=== PATIENT | female | born 1965 | race Hispanic/Latino ===

== ENCOUNTER → 2024-05-30 09:55 | Outpatient (REF) | payer OTHER, SELFPAY | LOC: WDC 09:55 | PROVIDERS: ATTENDING PHYSICIAN Family Medicine; FAMILY PHYSICIAN Internal Medicine | DX: N64.4 Mastodynia (principal) | CPT/HCPCS: 76642; 77062; 77066 ==

== ENCOUNTER 2025-07-20 12:32 | Inpatient (IN) | payer OTHER, SELFPAY ==
[2025-07-20] VITALS (8 sets, daily range): BP systolic 80–118; BP diastolic 53–79; BMI 31.5; BMI 31.4
--- NOTE | 2025-07-20 09:26 | ED.GENMED ---
History of Present Illness
General
Chief Complaint: Abdominal Pain
Time Seen by Provider: 07/20/25 09:17
History of Present Illness
History of Present Illness:
Patient presents to the emergency department with right upper quadrant abdominal pain. Symptoms started last night. Associated with dry heaving and vomiting. She did have some watery diarrhea without blood. Denies cough. Endorses mild nasal
congestion and runny nose
Past History
Past History
ED Past Medical History: GERD, HTN, NIDDM, Psychiatric (Anxiety, bipolar disorder, schizophrenia) and Other (MS, low back pain, chronic pain maintained on gabapentin)
ED Past Surgical History: Other (Gastric bypass)
Patient has exhibited threatening behavior?: No
PSI?: No
Social History
Tobacco: Non-smoker
Alcohol: None
Drug: None
Living: with family
Employment: Employed
Family History
Family History: Other (Noncontributory)
Phy Exam
Physical Exam
Physical Exam:
GENERAL APPEARANCE: NAD, well developed/ well nourished
EYES lids/conjunctiva normal
EARS/NOSE/THROAT Mucous membranes moist, uvula midline without oral pharyngeal erythema, exudate or swelling
HEAD/NECK normocephalic atraumatic, neck is supple.
RESPIRATORY respiratory effort normal, speaks in full sentences, no accessory muscle use. Lungs clear to auscultation without rhonchi, wheezes, rales
CARDIAC Regular rate and rhythm, no edema.
ABDOMINAL exquisitely tender in the right upper quadrant with guarding. The rest of the abdomen is soft, nontender
MUSCLES/EXTREMITIES No abnormal range of motion, no swelling.
SKIN Warm, pink and dry. No rashes
NEUROLOGICAL Speech is clear and appropriate. Normal level of consciousness. 5/5 strength in all extremities.
PSYCH Normal mood and affect. Judgement/competence is appropriate
Sepsis
Sepsis Screening
Sepsis Assessment: Sepsis
Sepsis Screen
Sepsis Screen: Sepsis
Date: 07/20/25
Time: 18:03
Course
Orders/Labs/Results
Orders:
Orders
07/20/25 Breakfast
NPO
Allow oral meds: Yes
Allow clear liquids: Sips of Clears
07/20/25 09:17
COVID-19 Antigen Urgent
Source: Nasal Swab
Influenza A+B Rapid Molecular Urgent
EMMANUEL Source: Nasal Swab
Specimen Description:
07/20/25 09:26
0.9% Sodium Chloride 1000 ml [Nss] 1,000 ml IV BOLUS
Morphine Sulfate 4 mg IV NOW STA
Ondansetron Injectable [Zofran] 4 mg IV NOW STA
07/20/25 09:27
US Abdomen Limited Urgent
Comment:
Reason For Exam: RUQ pain
07/20/25 09:39
Complete Blood Count/With Diff Urgent
Comprehensive Metabolic Panel Urgent
Lactic Acid Urgent
Lipase Urgent
Blood Culture Q30M
EMMANUEL Source: Blood/Venous
Specimen Description:
07/20/25 Lunch
NPO
Allow oral meds: Yes
Allow clear liquids: Sips of Clears
NPO with Ice Chips: Yes
07/20/25 10:44
Blood Culture Q30M
EMMANUEL Source: Blood/Venous
Specimen Description:
07/20/25 10:53
MetroNIDAZOLE 500 MG/100 ML [Flagyl 500 mg] 100 ml IV NOW
07/20/25 10:55
Acetaminophen 1000MG/100Ml [Ofirmev] 1,000 mg in 100 ml IV ONCE
Acetaminophen IV Indication:: No OK & No Enteral Access
07/20/25 11:20
CefTRIAXone [Rocephin] 1,000 mg IV NOW STA
07/20/25 11:21
Ciprofloxacin 400 mg/[id number] [Cipro 400 mg] 200 ml IV NOW
07/20/25 11:27
Sterile Water [Sterile Water For Injection] 10 ml IV NOW STA
07/20/25 12:19
Admit/Transfer Patient As Directed
Co-Sign Provider:
Level of Care: Inpatient admission
Assign to:: Telemetry
Physician / Group: utey
Diagnosis: sepsis, acute calculus cholecystitis
Reason for Telemetry: Other
Other Reason for Telemetry: sepsis
Date to Stop Telemetry: 07/22/25
Time to Stop Telemetry: 11:00
Reason for Hospitalization: sepsis, acute calculus cholecystitis
Expected length of stay greater than two midnights?: Yes
ELOS- Estimated Length of Stay in days: 3
I certify the patient meets the requirements for IP care: Yes
07/20/25 12:22
Code Status As Directed
Resuscitation Status: Full Code
07/20/25 12:42
HYDROmorphone [Dilaudid] 1 mg IV Q4HPRN PRN
07/20/25 12:43
0.9% Sodium Chloride 1000 ml [Nss] 1,000 ml IV 120 mls/hr
07/20/25 13:34
Ondansetron Injectable [Zofran] 4 mg IV Q6HPRN PRN
07/20/25 14:11
Bisacodyl [Dulcolax] 10 mg RECTAL [id number] PRN
Docusate W/Senna [Senokot-S] 1 tablet PO BIDPRN PRN
Polyethylene Glycol Powder [Miralax] 17 grams PO DAILYPRN PRN
07/20/25 14:11
Consult Surgery [SURGICAL CONSULT] Routine
Consulting Provider: Doug Mcgill
Was physician already notified: Yes
Reason for consult: acute cholecystits
Activity As Directed
Activity Level: With Assistance
Intake/ Output As Directed
Frequency: Per unit guidelines
Pneumatic Compression Sleeves As Directed
Type: Knee high
Vital Signs As Directed
Frequency: Per unit guidelines
Weight As Directed
Frequency: Daily
DX Deep Vein Thrombosis Video Routine
07/20/25 16:00
Acetaminophen [Tylenol] 650 mg PO Q4HPRN PRN
07/21/25 00:00
MetroNIDAZOLE 500 MG/100 ML [Flagyl 500 mg] 100 ml IV Q12H
07/21/25 06:00
Complete Blood Count/No Diff IN AM
Comprehensive Metabolic Panel IN AM
Prothrombin Time IN AM
07/21/25 08:00
LevoFLOXacin 750 MG/150 ML [Levaquin] 750 mg in 150 ml IV Q24H
07/22/25 11:00
DC Protocol for Telemetry ONCE
Abnormal Lab Results
07/20/25
09:39
WBC 14.1 H 10^3/uL
(4.8-10.8)
Abs Immat Gran (auto) 0.1 H 10^3/uL
(0-0.05)
Absolute Neuts (auto) 12.3 H 10^3/uL
(1.4-6.5)
Absolute Lymphs (auto) 0.8 L 10^3/uL
(1.2-3.4)
Absolute Monos (auto) 1.0 H 10^3/uL
(0.1-0.6)
Immature Gran % 0.6 H %
(0-0.5)
Neutrophils % 87.1 H %
(42.2-75.2)
Lymphocytes % 5.3 L %
(20.5-51.1)
Sodium 133 L mmol/L
(135-145)
Creatinine 0.5 L mg/dL
(0.6-1.0)
Glucose 145 H mg/dl
(70-99)
AST 38 H U/L
(14-36)
Total Protein 8.6 H g/dl
(6.3-8.2)
07/20/25 09:39
07/20/25 09:39
Vital Signs
Initial and Last Documented VS:
Initial Vital Signs
Temp Pulse Resp BP Pulse Ox
102.8 F H 124 16 118/79 97
07/20/25 09:08 07/20/25 09:08 07/20/25 09:08 07/20/25 09:08 07/20/25 09:08
Last Documented Vital Signs
Temp Pulse Resp BP Pulse Ox
98.3 F 93 18 94/65 94
07/20/25 14:24 07/20/25 17:53 07/20/25 14:24 07/20/25 17:53 07/20/25 15:36
*Pulse Oximetry
SaO2: 97
Oxygen Mode of Delivery: Room air
Patient hypoxic: no
*Critical Care Note
Total Time (30-74mins, 75-104mins- exclusive of procedures): Not Applicable
Update Note
Update Note:
Dr Mcgill recommending admission, antibiotics, possibly OR tomorrow
ED Attending Note
-
Portions of this chart may have been created with voice recognition software.� Occasional wrong word or��sound alike� substitutions may have occurred due to the inherent limitations of voice recognition software.
Discharge Plan
Departure
Patient Disposition: Admit
Date of Disposition: 07/20/25
Time of Disposition: 11:33
Presentation/result/management discussed w/ accepting MD/DO: Hospitalist
Discharge Problem:
Acute cholecystitis
Interventions
Interventions:
*Risk Screen - Suicide Last Done: 07/20/25 09:10
*General Assessment Last Done: 07/20/25 12:24
*Neglect/Abuse Screening Last Done: 07/20/25 09:10
*ED COVID-19 Vaccine History Last Done: 07/20/25 12:24
*ED Influenza Vaccine History Last Done: 07/20/25 12:24
[facility] Fall Risk Assessment Tool Last Done: 07/20/25 14:37
*Nursing Disposition Last Done: 07/20/25 14:23
YR-Bwsiyi-Shbugqvwpu Assessment Last Done: 07/20/25 09:19
Discharge Date and Time
Discharge Date/Time: 07/20/25 14:37
[2025-07-20] MEDS: ZOFRAN 4 MG IV ×2 (09:39→14:01)
[2025-07-20] MEDS: NSS 1000 IV ×4 (09:39→22:50)
[2025-07-20] MEDS: MORPHINE SULFATE 4 MG IV (09:40)
[2025-07-20 09:54] LABS: COVID-19 Antigen Negative (Negative)
[2025-07-20 10:01] LABS: Hematocrit 43.0 % (37.0-47.0); Hemoglobin 14.8 g/dL (12.0-16.0); Mean Corp Hgb Conc. 34.4 g/dL (33.0-37.0); Mean Corpuscular Volume 81.1 fL (81.0-99.0); Nucleated Red Blood Cells % 0 %; Platelet Count 286 10^3/uL (130-400); Red Cell Dist. Width 13.2 % (11.5-14.5)
[2025-07-20 10:19] LABS: ALT (SGPT) 25 U/L (0-35); AST (SGOT) 38 U/L (14-36); Albumin 4.5 g/dl (3.5-5.0); Alkaline Phosphatase 96 U/L (38-126); Blood Urea Nitrogen 9 mg/dl (7-17); Calcium 9.6 mg/dl (8.4-10.2); Carbon Dioxide 26 mmol/L (22-30); Chloride 99 mmol/L (98-107); Estimated Creatinine Clearance 96 ml/min; Glucose 145 mg/dl (70-99); Lipase 177 U/L (23-300); Potassium 4.0 mmol/L (3.5-5.1); Sodium 133 mmol/L (135-145); Total Protein 8.6 g/dl (6.3-8.2); eGFR > 60.00
[2025-07-20] MEDS: OFIRMEV 100 IV (11:21)
[2025-07-20] MEDS: FLAGYL 500 MG 100 IV ×2 (11:34→23:37)
[2025-07-20] MEDS: ROCEPHIN 1000 MG IV (11:34)
[2025-07-20] MEDS: CIPRO 400 MG 200 IV (11:34)
[2025-07-20] MEDS: STERILE WATER FOR INJECTION 10 ML IV (11:56)
--- NOTE | 2025-07-20 11:56 | HPS.HSE ---
Family Physician
-
Family Physician: NOT KNOW UNKNOWN - PT DOES
Chief Complaint
-
RUQ pain since last night
History of Present Illness
59F pw acute right sided abd pain for the past 8 hours, states she has a hernia and a cyst and unsure of which is causing her symptoms.
Pt is febrile in triage T 102
Medical History
Past Medical History
Past Medical History: Reports Asthma, HTN, NIDDM, Psychiatric (Anxiety, bipolar disorder, schizophrenia) and Other (MS, low back pain, chronic pain maintained on gabapentin))
Past Surgical History: Reports Other (Gastric bypass))
Social History
Tobacco: Non-smoker
Alcohol: None
Drug: None
Living: With Family
Family History
Family History: Not pertinent
Allergies / Home Medications
Allergies reflects when Allergies were last updated in [employer].
Home Medications with original date entered in [employer]
Allergy/Medication List:
Allergies
Allergy/AdvReac Type Severity Reaction Status Date / Time
ibuprofen Allergy Unknown Verified 09/13/22 22:24
Penicillins Allergy Unknown Verified 09/13/22 22:24
Home Medications
omeprazole magnesium 20 mg tablet,delayed release (Prilosec OTC) 20 mg PO DAILY ##30 09/19/11
Vitamin B12 1 tab PO DAILY 12/29/11
multivitamin 1 ea PO DAILY 12/29/11
hydrocodone 5 mg-acetaminophen 300 mg tablet 1 tab PO Q8H PRN MODERATE PAIN #15 tabs 09/14/22
albuterol sulfate 90 mcg/actuation aerosol inhaler 2 puff inhalation Q6H PRN shortness of breath or wheezing #6.7 grams 12/05/22
azithromycin 250 mg tablet (Zithromax Z-Chuy) 250 mg PO DAILY 6 days #6 tabs 12/05/22
prednisone 20 mg tablet 40 mg (2 x 20 mg) PO DAILY 4 days #8 tabs 12/05/22
Review of Systems
-
Constitutional: Reports No Symptoms
EENT: Reports No Symptoms
Respiratory: Reports No Symptoms and See HPI
Cardiac: Reports No Symptoms
: Reports No Symptoms
Musculoskeletal: Reports No Symptoms
Skin: Reports No Symptoms
Neurological: Reports No Symptoms
Endocrine: Reports No Symptoms
Hematologic/Lymphatic: Reports No Symptoms
Psych: Reports No Symptoms
Physical Exam
Vital Signs
Vital Signs
Temp Pulse Resp BP Pulse Ox
102.8 F H 115 16 115/71 95
07/20/25 09:08 07/20/25 10:43 07/20/25 10:43 07/20/25 10:43 07/20/25 10:43
Physical Exam
General: Well Developed, Well Nourished, No Apparent Distress, Conversant and Other (Not toxic )
HEENT: NormoCephalic, Moist mucous membranes and Atraumatic
Respiratory: Clear
Cardiac: S1/S2 and Regular Rhythm; No Murmur or Rub
GI: Tender (exquisitely tender in the right upper quadrant with guarding. The rest of the abdomen is soft, nontender)
Rectal: Deferred by Provider
Musculoskeletal: No Clubbing, No Cyanosis and No Edema
Skin: No Rash
Neuro: Nonfocal/grossly intact
Laboratory Results
-
07/20/25 09:39
07/20/25 09:39
Laboratory Results
Lactic Acid 1.6 mmol/L (0.7-2.0) 07/20/25 09:39
Total Bilirubin 1.2 mg/dl (0.2-1.3) 07/20/25 09:39
AST 38 U/L (14-36) H 07/20/25 09:39
ALT 25 U/L (0-35) 07/20/25 09:39
Alkaline Phosphatase 96 U/L (38-126) 07/20/25 09:39
Lipase 177 U/L (23-300) 07/20/25 09:39
Impression/Plan
-
Vital Signs
Temp Pulse Resp BP Pulse Ox
102.8 F H 115 16 115/71 95
07/20/25 09:08 07/20/25 10:43 07/20/25 10:43 07/20/25 10:43 07/20/25 10:43
07/20/25
09:39
WBC 14.1 H
Hgb 14.8
Plt Count 286
Sodium 133 L
Creatinine 0.5 L
eGFR > 60.00
Lactic Acid 1.6
Total Bilirubin 1.2
AST 38 H
ALT 25
Alkaline Phosphatase 96
Total Protein 8.6 H
Lipase 177
US Abdomen Limited : CLINICAL INDICATION: Right upper quadrant pain.
IMPRESSION:
- Cholelithiasis/sludge, gallbladder wall thickening, trace pericholecystic fluid, and a reportedly positive sonographic Jimenez's sign.
Sonographic findings are considered suspicious for acute cholecystitis.
- Mild extrahepatic bile duct dilatation.
ASSESSMENT & PLAN
Sepsis due to acute cholecystitis
suspicious for acute calculous cholecystitis
Cholelithiasis/sludge, gallbladder
Fever , hi WCC + Sono POS for positive sonographic Jimenez's sign, RHQ tenderness, trace PCF, GBWT
Hemodynamically stable
HX PCN allergy
- normal lactic acid, normal Lipase and LFTs
- NPO and IV NS
- Empiric IV LVQ in place of Cipro + IV Flagyl initiated at ER - will cont
- GS/CRS Dr Mcgill saw, possibly OR tomorrow
Known HX
GERD
pHTN
NIDDM
Anxiety, bipolar disorder, schizophrenia
MS, low back pain, chronic pain maintained on gabapentin
DVT Px: SCD
Code:Full
IP TLM
--- NOTE | 2025-07-20 12:42 | CM ---
Chart reviewed and spoke with patient at ED bedside
Lives in a condo with ( they are going through separation now)
[address]
Independent
DME CPAP and cane
PCP Dr. Nikko Lyn
[facility]
no hx of VN nor SNF
DCP is to return home
Dtr Nohemi can pick her up at [place]
Cm will continue to follow up for any dcp needs
--- NOTE | 2025-07-20 13:37 | CON.GS ---
Consultation
-
Date/Time Consultation Performed: 07/20/25 1115
Medical History
-
Chief Complaint: ruq pain
History of Present Illness:
Ms Chaudhari is a 59 yo female with a h/o htn, niddm, bipolar, schizophrenia, MS and obesity s/p lap gastric bypass 2010 and more recent weight loss of 50lbs on Mounjaro (intentional) who presents with ruq pain that started last night with dry heaving
and nausea. She has had some diarrhea x1 episodes. On exam, she is tender to the RUQ. She does note she has been told she has gallstones by her GI doctor who she follows for esophageal dysfunction but denies prior episodes of pain like this in the
past. She had noted fever this morning.
Past Medical History
Past Medical History: GERD (esophageal dysfunction with prior EGD's, transfusions for prior GIB) and Psychiatric (bipolar, schizophrenia, MS, chronic back pain)
Past Surgical History: Bariatric (lap gastric bypass 2010) and Orthopedic (wrist surgery)
Social History
Tobacco: Non-Smoker
Alcohol: None
Family History
Family History: Reviewed & Not Pertinent
Allergies / Home Medications
Allergy/AdvReac Type Severity Reaction Status Date / Time
ibuprofen Allergy Unknown Verified 09/13/22 22:24
Penicillins Allergy Unknown Verified 09/13/22 22:24
�Medication �Instructions �Recorded �Confirmed �Type
cyanocobalamin (vitamin B-12) 1,000 mcg PO DAILY Supplement 07/20/25 07/20/25 History
1,000 mcg tablet
gabapentin 600 mg tablet 600 mg PO TID Neurological 07/20/25 07/20/25 History
Condition
hydroxyzine pamoate 50 mg capsule 50 mg PO TID Mental Health/Anxiety 07/20/25 07/20/25 History
melatonin 10 mg tablet 10 mg PO HSPRN PRN sleep 07/20/25 07/20/25 History
meloxicam 15 mg tablet 15 mg PO DAILYPRN PRN mild pain 07/20/25 07/20/25 History
prazosin 1 mg capsule 1 mg PO HS 07/20/25 07/20/25 History
rosuvastatin 5 mg tablet (Crestor) 5 mg PO QPM High Cholesterol 07/20/25 07/20/25 History
therapeutic multivitamin 1 tab PO DAILY Supplement 07/20/25 07/20/25 History
tirzepatide 7.5 mg/0.5 mL 7.5 mg SC SA Weight Gain 07/20/25 07/20/25 History
subcutaneous pen injector
(Mounjaro)
zolpidem 10 mg tablet (Ambien) 10 mg PO HS Sleep 07/20/25 07/20/25 History
Review of Systems
-
History Source: Patient and Family
All other systems: Negative unless noted
A 10 point review of systems was completed, and was negative except as per HPI.
Physical Exam
Vital Signs
Temp Pulse Resp BP Pulse Ox
100.1 F 109 16 91/61 93
07/20/25 12:21 07/20/25 12:21 07/20/25 10:43 07/20/25 12:21 07/20/25 12:21
07/19/25 07/20/25 07/21/25
06:59 06:59 06:59
Actual Weight 78 kg
Body Mass Index (BMI) 31.5
Lab Results
07/20/25 09:39
07/20/25 09:39
WBC 14.1 10^3/uL (4.8-10.8) H 07/20/25 09:39
Hgb 14.8 g/dL (12.0-16.0) 07/20/25 09:39
Hct 43.0 % (37.0-47.0) 07/20/25 09:39
Plt Count 286 10^3/uL (130-400) 07/20/25 09:39
Abs Immat Gran (auto) 0.1 10^3/uL (0-0.05) H 07/20/25 09:39
Neutrophils % 87.1 % (42.2-75.2) H 07/20/25 09:39
Physical Exam
General: Comfortable and Fever
HEENT: Normocephalic and Moist Mucous Membranes
GI: Soft, Non Distended and Tender (RUQ )
Skin: Warm and Dry
Neuro: Awake, Alert and AO x 3
Psych: Calm
Data Reviewed
-
Ultrasound: Image Personally Visualized and interpreted, Report Reviewed by me, Discussed with Physician, Discussed with Patient and Discussed with Family
Labs: Labs Reviewed by me, Discussed with Physician, Discussed with Patient and Discussed with Family
Old Records: Reviewed
Assessment / Plan
-
Ms Chaudhari is a 59 yo female with a h/o htn, niddm, bipolar, schizophrenia, MS and obesity s/p lap gastric bypass 2010 and more recent weight loss of 50lbs on Mounjaro (intentional) who presents with ruq pain that started last night with dry heaving
and nausea. She is febrile to 102.8 (responded to Ofirmev) with tachycardia and soft low bps. Tender to the RUQ with US imaging demonstrating acute calculous cholecystitis. Leukocytosis present. Bilirubin of 1.2 with mildly elevated AST. Normal
Lipase.
Plan:
Keep NPO
Start IV abx (ceftriaxone/flagyl)
Medical management as per primary team
Will plan laparoscopic cholecystectomy this admission, timing TBD
--- NOTE | 2025-07-20 16:03 | PTCARENOTE ---
This patient arrived to unit around 1430 this shift. She was able to walk from stretcher to bed with a x1 standby assist. Pt oriented to staff and room. BP noted to be low upon arrival at 84/53 automatic and 80/58 manual. MD notified at this time
and a 1 time 1000 cc bolus was ordered to be given. After the bolus pt came up to 100/66 manually. Plan of care ongoing.
[2025-07-20] MEDS: TORADOL 15 MG IV ×2 (16:33→22:35)
[2025-07-20] MEDS: TYLENOL 650 MG PO (20:17)
[2025-07-20] MEDS: MELATONIN 3 MG PO (22:35)
[2025-07-21] VITALS (8 sets, daily range): BP systolic 100–124; BP diastolic 60–76; BMI 32.4
[2025-07-21] MEDS: DILAUDID 0.5 MG IV ×4 (02:56→16:26)
--- NOTE | 2025-07-21 03:02 | PTCARENOTE ---
Patients BP soft 99/63 and 100/63. Pt. rang call brewer and informed RN that pain was a '07/24.' BP 108/68. DORIAN Lopez notified. PRN dilaudid order changed from 1 mg to 0.5 mg. See MAR for administration. Plan of care ongoing.
[2025-07-21 07:18] LABS: Hematocrit 36.6 % (37.0-47.0); Hemoglobin 12.4 g/dL (12.0-16.0); Mean Corp Hgb Conc. 33.9 g/dL (33.0-37.0); Mean Corpuscular Volume 82.8 fL (81.0-99.0); Platelet Count 246 10^3/uL (130-400); Red Cell Dist. Width 13.8 % (11.5-14.5)
[2025-07-21 07:34] LABS: INR 1.56; PT 18.8 Sec (11.4-14.6)
[2025-07-21 07:48] LABS: ALT (SGPT) 351 U/L (0-35); AST (SGOT) 434 U/L (14-36); Albumin 2.9 g/dl (3.5-5.0); Alkaline Phosphatase 186 U/L (38-126); Blood Urea Nitrogen 10 mg/dl (7-17); Calcium 8.7 mg/dl (8.4-10.2); Carbon Dioxide 25 mmol/L (22-30); Chloride 103 mmol/L (98-107); Estimated Creatinine Clearance 98 ml/min; Glucose 78 mg/dl (70-99); Potassium 3.7 mmol/L (3.5-5.1); Sodium 135 mmol/L (135-145); Total Protein 6.1 g/dl (6.3-8.2); eGFR > 60.00
[2025-07-21] MEDS: NSS 1000 IV ×3 (08:12→20:33)
[2025-07-21] MEDS: LEVAQUIN 150 IV (08:15)
[2025-07-21] MEDS: FLAGYL 500 MG 100 IV ×2 (11:38→23:42)
[2025-07-21] MEDS: TORADOL 15 MG IV (11:38)
--- NOTE | 2025-07-21 13:28 | W.PN.HOSP.TC ---
Today's Communication/Plan
-
Assessment / Plan
Assessment / Plan
NAD
Scleral Anicteric
MMM
No JVD
CTABL
RRR, S1/S2
Soft, NT, ND, BS+
Warm, Dry
AAOx3
Calm
[address]ylan
left hip pain secondary to gamma nail malplacement. Ortho following but not sure what they want to do interm of the plan.
317-2 chavez yamileth
Cholecystitis for MRCP likely will require a lap anitra per surgery in the next 1 or 2 days
Sepsis due to acute cholecystitis
Continue IV fluids
IV antibiotics
Blood cultures
Acute cholecystitis complicated by transaminitis
Transaminitis likely secondary to stone movement
MRCP
IV fluids
Plan for lap anitra in 1 to 2 days
GERD
Continue PPI
Hypertension
Continue antihypertensive
And IDDM
Accu-Chek sliding scale goal blood glucose 140-180
Anticipated Discharge: > 48 hours
Subjective/Interval History
-
Date of Service: July 21, 2025
Seen and examined. No new complaints. No acute overnight events.
Objective Data
-
Labs:
Laboratory Results
07/21/25
06:42
WBC 17.7 H
Hgb 12.4
Hct 36.6 L
Plt Count 246
PT 18.8 H
INR 1.56
Sodium 135
Potassium 3.7
Chloride 103
Carbon Dioxide 25
BUN 10
Creatinine 0.6
Glucose 78
Calcium 8.7
Total Bilirubin 3.8 H D
AST 434 H
ALT 351 H
Alkaline Phosphatase 186 H
Vital Signs:
Vital Signs
Temp Pulse Resp BP Pulse Ox
98.5 F 119 20 108/60 97
07/21/25 11:59 07/21/25 11:59 07/21/25 11:59 07/21/25 11:59 07/21/25 11:59
I&O
07/20/25 07/21/25 07/22/25
06:59 06:59 06:59
Intake Total 100 / 100
Balance 100 / 100
--- NOTE | 2025-07-21 15:26 | W.PN.GS2 ---
Today's Communication / Plan
-
pain control
OR tomorrow
Assessment / Plan
-
59 yo female with h/o lap gastric bypass, bipolar, schizophrenia, asthma and niddm presenting with acute calculous cholecystitis
Fever on arrival, none since. Tachycardia with soft low BP's
Leukocytosis present, trending up
LFT's rising today therefore obtained MRCP which demonstrates no choledocholithiasis, cholecystitis noted
Pt voicing concern that she is off her home mediations
Plan:
Will resume home psych meds, pt offered list off her [employer] patient portal for verification. Trend EKG's given potential for QTc prolongation with concurrent use of Levaquin with trazodone and hydroxyzine
Trend labs
Ok for clears tonight, NPO after MN for OR
C/W Levaquin/Flagyl
OR tomorrow for laparoscopic cholecystectomy
c/w IVF
analgesics with toradol and dilaudid (increased dosing frequency for better pain control)
SCDs for VTE ppx
Subjective Data
-
Date of Service: July 21, 2025
Pt seen and examined at bedside with Dr. Mcgill. Pain persists, describes as worse than childbirth. Concerned as she has been off her home medications. Denies n/v.
Objective Data
-
Intake and Output
07/20/25 07/21/25 07/22/25
06:59 06:59 06:59
Intake Total 100 / 100
Balance 100 / 100
Intake:
IV piggybacks 100 / 100
Other:
Number of approximated MODERATE 1
amounts of urine
Number of approximated LARGE 1
amounts of urine
Vital Signs
Temp Pulse Resp BP Pulse Ox
98.5 F 119 20 108/60 97
07/21/25 11:59 07/21/25 11:59 07/21/25 11:59 07/21/25 11:59 07/21/25 11:59
Lab Results
07/21/25 06:42
07/21/25 06:42
Calcium 8.7 mg/dl (8.4-10.2) 07/21/25 06:42
Total Bilirubin 3.8 mg/dl (0.2-1.3) H D 07/21/25 06:42
Direct Bilirubin 3.0 mg/dl (0.0-0.4) H 07/21/25 06:42
AST 434 U/L (14-36) H 07/21/25 06:42
ALT 351 U/L (0-35) H 07/21/25 06:42
Alkaline Phosphatase 186 U/L (38-126) H 07/21/25 06:42
Total Protein 6.1 g/dl (6.3-8.2) L D 07/21/25 06:42
Albumin 2.9 g/dl (3.5-5.0) L D 07/21/25 06:42
Physical Exam
-
NAD
ABD soft, tender to RUQ, nd
[2025-07-21] MEDS: PROZAC 40 MG PO (16:22)
[2025-07-21] MEDS: ATARAX 50 MG PO ×2 (16:23→22:07)
[2025-07-21] MEDS: LYRICA 150 MG PO (20:16)
[2025-07-21] MEDS: PEPCID 40 MG PO (20:32)
[2025-07-21] MEDS: ELAVIL 10 MG PO (22:06)
[2025-07-21] MEDS: DESYREL 100 MG PO (22:06)
[2025-07-21] MEDS: AMBIEN 10 MG PO (22:14)
[2025-07-22] VITALS (12 sets, daily range): BP systolic 10–127; BP diastolic 54–74; BMI 33.2
[2025-07-22] MEDS: DILAUDID 0.5 MG IV ×5 (02:30→21:33)
--- NOTE | 2025-07-22 02:40 | PTCARENOTE ---
Patient's roommates bed alarm sounded which woke patient up. This RN asked patient how her pain was. Pt. responded '03/24 in my stomach' while rubbing her abdomen. RN offered patient PRN pain medication. Patient agreed and then stated 'the pain has
been bothering me for awhile.' This RN asked patient why she did not ring call brewer. This nurse rounded several times throughout shift and patient was observed sleeping and snoring. Pt stated 'well didn't you hear me moaning out there?' Pt. again
educated that if she needs anything to ring the call brewer. Plan of care ongoing.
[2025-07-22] MEDS: TYLENOL 650 MG PO (03:10)
[2025-07-22] MEDS: NSS 1000 IV ×2 (05:56→13:12)
[2025-07-22] MEDS: PROZAC 40 MG PO (08:09)
[2025-07-22] MEDS: ATARAX 50 MG PO ×2 (08:10→21:32)
[2025-07-22] MEDS: LEVAQUIN 150 IV (08:10)
[2025-07-22] MEDS: LYRICA 150 MG PO ×2 (08:13→21:31)
[2025-07-22 08:56] LABS: Hematocrit 32.1 % (37.0-47.0); Hemoglobin 10.9 g/dL (12.0-16.0); Mean Corp Hgb Conc. 34.0 g/dL (33.0-37.0); Mean Corpuscular Volume 81.7 fL (81.0-99.0); Platelet Count 223 10^3/uL (130-400); Red Cell Dist. Width 14.2 % (11.5-14.5)
[2025-07-22 09:59] LABS: ALT (SGPT) 177 U/L (0-35); AST (SGOT) 108 U/L (14-36); Albumin 2.4 g/dl (3.5-5.0); Alkaline Phosphatase 148 U/L (38-126); Blood Urea Nitrogen 15 mg/dl (7-17); Calcium 8.6 mg/dl (8.4-10.2); Carbon Dioxide 22 mmol/L (22-30); Chloride 106 mmol/L (98-107); Estimated Creatinine Clearance 85 ml/min; Glucose 80 mg/dl (70-99); Potassium 3.7 mmol/L (3.5-5.1); Sodium 131 mmol/L (135-145); Total Protein 5.2 g/dl (6.3-8.2); eGFR > 60.00
--- NOTE | 2025-07-22 10:03 | W.PN.HOSP.TC ---
Addendum entered and electronically signed by Tiffany Venegas MD 07/22/25 12:53:
Addendum
Low BP prior to surgery, will give Bolus NS
End
Original Note:
Today's Communication/Plan
-
.
Assessment / Plan
Assessment / Plan
Physical Exam
General: Well Developed, Well Nourished, No Apparent Distress, Conversant and Other (Not toxic )
HEENT: Normocephalic, Moist mucous membranes and Atraumatic
Respiratory: Clear
Cardiac: S1/S2 and Regular Rhythm; No Murmur or Rub
GI: Tender (exquisitely tender in the right upper quadrant with guarding. The rest of the abdomen is soft, nontender)
Musculoskeletal: No Clubbing, No Cyanosis and No Edema
Skin: No Rash
Neuro: Nonfocal/grossly intact
Psych: calm
Sepsis / septic shock with leukocytosis, fever, hypotension, hyponatremia, elevated liver enzymes due to acute cholangitis/ cholecystitis
WBC is coming down
Fever is resolving
on IV ABx, IVF
BP is better now
Blood cultures are NGTD
MRCP: No MRCP evidence for choledocholithiasis.
d/w surgery, plan too OR today
Acute cholecystitis complicated by transaminitis
Transaminitis likely secondary to stone movement
MRCP
IV fluids
Plan for lap anitra today 07/22
# Sinus tachycardia
Could be reactive to infection or clonidine withdrawal
Will place her back on clonidine
GERD
Continue PPI
Hypertension
Hold antihypertensive due to low BP until after surgery and bP starting to go up
IDDM
Accu-Chek sliding scale goal blood glucose 140-180
# Per records
- bipolar, schizophrenia, MS, chronic back pain
Mildly restless.
Will place her back on psych meds to stabilize her mood.
Total time spent to see the patient, examined the patient, reviewed data and lab result, discuss treatment plan with patient, nursing staff around 55 minutes
Anticipated Discharge: > 48 hours
Subjective/Interval History
-
Date of Service: July 22, 2025
No chest pain
No sob
NPO for OR today
Objective Data
-
Labs:
Laboratory Results
07/22/25
08:34
WBC 15.5 H
Hgb 10.9 L
Hct 32.1 L
Plt Count 223
Sodium 131 L
Potassium 3.7
Chloride 106
Carbon Dioxide 22
BUN 15
Creatinine 0.7
Glucose 80
Calcium 8.6
Total Bilirubin 1.6 H D
AST 108 H
ALT 177 H
Alkaline Phosphatase 148 H
Vital Signs:
Vital Signs
Temp Pulse Resp BP Pulse Ox
97.9 F 99 18 101/61 92
07/22/25 07:58 07/22/25 07:58 07/22/25 07:58 07/22/25 07:58 07/22/25 07:58
I&O
07/21/25 07/22/25 07/23/25
06:59 06:59 06:59
Intake Total 100 / 100 240 / 240
Balance 100 / 100 240 / 240
[2025-07-22] MEDS: FLAGYL 500 MG 100 IV (11:57)
--- NOTE | 2025-07-22 13:13 | W.PN.GS2 ---
Today's Communication / Plan
-
OR today
Assessment / Plan
-
59 yo female with h/o lap gastric bypass, bipolar, schizophrenia, asthma and niddm presenting with acute calculous cholecystitis
Fever on arrival, none since. Tachycardia with soft low BP's
Leukocytosis present, trending down
LFT's trending down today. MRCP on 07/21 demonstrates no choledocholithiasis, cholecystitis noted
Plan:
NPO for OR today
Lap cholecystectomy with IOC today once OR available
Trend labs
C/W Levaquin/Flagyl
c/w IVF
analgesics with toradol and dilaudid
SCDs for VTE ppx
Subjective Data
-
Date of Service: July 22, 2025
Pt seen and examined at bedside with Dr. Espinosa. Denies n/v. Pain to epigastrium and RUQ still present. denies fever/chills.
Objective Data
-
Intake and Output
07/21/25 07/22/25 07/23/25
06:59 06:59 06:59
Intake Total 100 / 100 240 / 240
Balance 100 / 100 240 / 240
Intake:
Oral fluids 240 / 240
IV piggybacks 100 / 100
Other:
Number of approximated MODERATE 1 1
amounts of urine
Number of approximated LARGE 1 3
amounts of urine
Vital Signs
Temp Pulse Resp BP Pulse Ox
98.0 F 110 18 112/74 97
07/22/25 11:03 07/22/25 11:03 07/22/25 11:03 07/22/25 11:03 07/22/25 11:03
Lab Results
07/22/25 08:34
07/22/25 08:34
Calcium 8.6 mg/dl (8.4-10.2) 07/22/25 08:34
Total Bilirubin 1.6 mg/dl (0.2-1.3) H D 07/22/25 08:34
Direct Bilirubin 3.0 mg/dl (0.0-0.4) H 07/21/25 06:42
AST 108 U/L (14-36) H 07/22/25 08:34
ALT 177 U/L (0-35) H 07/22/25 08:34
Alkaline Phosphatase 148 U/L (38-126) H 07/22/25 08:34
Total Protein 5.2 g/dl (6.3-8.2) L 07/22/25 08:34
Albumin 2.4 g/dl (3.5-5.0) L 07/22/25 08:34
Physical Exam
-
NAD
ABD soft, tender to RUQ/Epigastrium, nd
--- NOTE | 2025-07-22 13:16 | W.SUR.PREOP ---
Pre-Operative Surgical Note
-
I have examined this patient prior to the performance of the scheduled procedure.
The patient's condition is unchanged from the time of the current History and
Physical and the patient is able to undergo the scheduled procedure.
--- NOTE | 2025-07-22 14:23 | CM ---
patient seen at bedside with daughter
per note Lap cholecystectomy with IOC today
PLAN: OR today, anticipate home, CM to follow for discharge planning/needs
[2025-07-22] MEDS: CATAPRES 0.1 MG PO (14:58)
[2025-07-22] MEDS: ATARAX PO (15:07)
[2025-07-22] MEDS: NSS IV (16:37)
--- NOTE | 2025-07-22 19:10 | W.IMMPOSTOP ---
Surgical Immed Post Op Note
-
Primary Surgeon: Aram Espinosa MD
Assisting Surgeon: None
Registered Public Health Nurse: ALEK Syed
Pre-op Diagnosis: Acute cholecystitis
Post-op Diagnosis: Gangrenous cholecystitis, intra-abdominal abscess
Procedure Performed:
1. Laparoscopic subtotal cholecystectomy with cholangiogram and suture ligation of the cystic duct +22 modifier
2. Drainage of an intra-abdominal abscess
Anesthesia Type: General
Specimen / Cultures:
1. Right upper quadrant pus for culture
2. Gallbladder and gallstones
Estimated Blood Loss: 67 cc
Complications: None
Operative Findings: Safe Veress needle entry required a single pass. Right upper quadrant Optiview trocar. Significant inflammation and purulent peritonitis noted particular in the right upper quadrant. Standard 4 port set up however an
additional 5 mm port was eventually placed in the left upper quadrant to assist with retraction given her very large liver. We were able to carefully peel off the rind of the surrounding fat off of the gallbladder wall which was notably gangrenous
in multiple points and perforated near the fundus with purulent bile extruding into a contained abscess in the right upper quadrant. This was sent for culture. Due to the size of the liver and inflammation at the hilum it was clear that we had to
do a top-down approach. The gallbladder fundus was elevated and the gallbladder was purposely entered just below it and taken down both the lateral and medial sides. Using a large suction device the gallstones were removed with minimal to no
spillage. The entire anterior plate of the gallbladder was taken off in the cystic duct orifice with bile emanating from it was visualized. There was a yellow cholesterol stone that was removed. The duct was then cannulated with cholangiocatheter
and a cholangiogram was performed. This showed appropriate filling of the duodenum, no distal filling defects and normal biliary anatomy. The catheter was removed and the duct was ligated using a 4-0 Maxon [id number] suture. 2 were used to
accomplish complete closure of the duct. The right upper quadrant was flooded and suctioned until clear. The back wall of the gallbladder was fulgurated. The right upper quadrant was carefully inspected for any other missing stones of which there
were none. All 4 x 4's along with the specimen were removed. Reinspection of the cystic duct stump confirmed hemostasis and there was no leaking bile. Floseal was then placed over the hilum and fossa. A 19 Uzbek round Leonel drain was then
introduced through the right lateralmost port passed across the field and secured to the skin with a 2-0 nylon suture. The 12 mm epigastric port was then closed with a 0 Maxon [id number] and the remainder of the ports were removed under direct
visualization.
POST OP PLAN:
Imaging: None
Labs: Routine AM
Diet: Clears tonight, will advance to regular diet as tolerated tomorrow.
Analgesia: Tylenol 650mg q6 Ankita, Dilaudid 0.5mg q2h PRN. No NSAIDs/Toradol
Neuro/vascular checks: Per unit protocol
AC/AP: Hold Therapeutic AC, Ok for DVT PPx
Activity: Ad Donna
Wound/Incisions/Drains: Routine
Abx: Will continue antibiotics x 7 days
Dispo: RNF, anticipate discharge home on 07/24 with a drain, at the earliest.
[2025-07-22] MEDS: ELAVIL 10 MG PO (21:32)
[2025-07-22] MEDS: DESYREL 100 MG PO (21:32)
[2025-07-23] MEDS: AMBIEN PO (00:26)
[2025-07-23] MEDS: FLAGYL 500 MG 100 IV ×2 (01:11→12:17)
[2025-07-23 03:00] VITALS: BP 97/63
[2025-07-23 05:13] VITALS: BMI 34.5
[2025-07-23 07:38] VITALS: BP 116/73
[2025-07-23] MEDS: PROZAC 40 MG PO (07:43)
[2025-07-23] MEDS: LYRICA 150 MG PO ×2 (07:43→21:20)
[2025-07-23] MEDS: ATARAX 50 MG PO ×3 (07:44→21:20)
[2025-07-23] MEDS: LEVAQUIN 150 IV (07:44)
[2025-07-23] MEDS: TORADOL 15 MG IV ×3 (07:56→21:20)
[2025-07-23 08:01] LABS: Hematocrit 34.5 % (37.0-47.0); Hemoglobin 11.0 g/dL (12.0-16.0); Mean Corp Hgb Conc. 31.9 g/dL (33.0-37.0); Mean Corpuscular Volume 86.3 fL (81.0-99.0); Platelet Count 250 10^3/uL (130-400); Red Cell Dist. Width 14.5 % (11.5-14.5)
[2025-07-23 08:21] LABS: ALT (SGPT) 141 U/L (0-35); AST (SGOT) 93 U/L (14-36); Albumin 2.6 g/dl (3.5-5.0); Alkaline Phosphatase 140 U/L (38-126); Blood Urea Nitrogen 14 mg/dl (7-17); Calcium 8.8 mg/dl (8.4-10.2); Carbon Dioxide 23 mmol/L (22-30); Chloride 106 mmol/L (98-107); Estimated Creatinine Clearance 101 ml/min; Glucose 112 mg/dl (70-99); Potassium 4.0 mmol/L (3.5-5.1); Sodium 135 mmol/L (135-145); Total Protein 5.6 g/dl (6.3-8.2); eGFR > 60.00
--- NOTE | 2025-07-23 09:40 | W.PN.HOSP.TC ---
Today's Communication/Plan
-
.
Assessment / Plan
Assessment / Plan
Physical Exam
General: Well Developed, Well Nourished, No Apparent Distress, Conversant and Other (Not toxic )
HEENT: Normocephalic, Moist mucous membranes and Atraumatic
Respiratory: Clear
Cardiac: S1/S2 and Regular Rhythm; No Murmur or Rub
GI: Tender (exquisitely tender in the right upper quadrant with guarding. The rest of the abdomen is soft, nontender)
Musculoskeletal: No Clubbing, No Cyanosis and No Edema
Skin: No Rash
Neuro: Nonfocal/grossly intact
Psych: calm
# S/P Laparoscopic subtotal cholecystectomy with cholangiogram & Drainage of an intra-abdominal abscess
Sepsis / septic shock with leukocytosis, fever, hypotension, hyponatremia, elevated liver enzymes due to acute Gangrenous cholecystitis, intra-abdominal abscess
WBC is coming down
Fever is resolving
on IV ABx,
Can stop IVF
OR culture is pending
Blood cultures are NGTD
MRCP: No MRCP evidence for choledocholithiasis.
Appreciate surgery help
# Sinus tachycardia
Could be reactive to infection or clonidine withdrawal
Back on clonidine
Insomnia on Ambien
GERD
Continue PPI
Hypertension
Hold antihypertensive due to low BP until after surgery and bP starting to go up
IDDM
Accu-Chek sliding scale goal blood glucose 140-180
# Per records
- bipolar, schizophrenia, MS, chronic back pain
Less restless.
Back on psych meds to stabilize her mood.
Total time spent to see the patient, examined the patient, reviewed data and lab result, discuss treatment plan with patient, nursing staff around 55 minutes
Anticipated Discharge: > 48 hours
Subjective/Interval History
-
Date of Service: July 23, 2025
Mild abdominal discomfort
No fevers
No sob
Objective Data
-
Labs:
Laboratory Results
07/23/25
07:26
WBC 13.4 H
Hgb 11.0 L
Hct 34.5 L
Plt Count 250
Sodium 135
Potassium 4.0
Chloride 106
Carbon Dioxide 23
BUN 14
Creatinine 0.5 L
Glucose 112 H
Calcium 8.8
Total Bilirubin 1.0
AST 93 H
ALT 141 H
Alkaline Phosphatase 140 H
Vital Signs:
Vital Signs
Temp Pulse Resp BP Pulse Ox
97.9 F 92 18 116/73 96
07/23/25 07:38 07/23/25 07:38 07/23/25 07:38 07/23/25 07:38 07/23/25 07:38
I&O
07/22/25 07/23/25 07/24/25
06:59 06:59 06:59
Intake Total 240 / 240 980 / 980
Output Total 70 / 70
Balance 240 / 240 910 / 910
[2025-07-23] MEDS: DILAUDID 0.5 MG IV (11:07)
[2025-07-23 11:24] VITALS: BP 119/76
[2025-07-23] MEDS: CATAPRES 0.1 MG PO (12:17)
[2025-07-23 15:10] VITALS: BP 98/59
[2025-07-23 19:37] VITALS: BP 90/53
[2025-07-23] MEDS: ATIVAN 0.5 MG PO (21:20)
[2025-07-23] MEDS: ELAVIL 10 MG PO (21:20)
[2025-07-23] MEDS: DESYREL 100 MG PO (21:20)
[2025-07-23] MEDS: AMBIEN 10 MG PO (21:20)
[2025-07-23 23:34] VITALS: BP 102/64
[2025-07-24] MEDS: FLAGYL 500 MG 100 IV ×2 (00:31→12:01)
[2025-07-24] MEDS: DILAUDID 0.5 MG IV ×2 (02:33→06:37)
[2025-07-24 03:40] VITALS: BP 103/67
[2025-07-24 06:00] VITALS: BMI 34.7
[2025-07-24 07:32] VITALS: BP 98/56
[2025-07-24] MEDS: LYRICA 150 MG PO (08:24)
[2025-07-24] MEDS: TYLENOL 1000 MG PO (08:24)
[2025-07-24] MEDS: ATARAX 50 MG PO (08:24)
[2025-07-24] MEDS: DETROL LA 4 MG PO (08:24)
[2025-07-24] MEDS: LEVAQUIN 150 IV (08:24)
[2025-07-24] MEDS: PROZAC 40 MG PO (08:24)
--- NOTE | 2025-07-24 08:38 | W.PN.GS2 ---
Today's Communication / Plan
-
Dispo planning with drain
Assessment / Plan
-
59 yo female with h/o lap gastric bypass, bipolar, schizophrenia, asthma and niddm presenting with acute calculous cholecystitis. Postoperative day 2 from a near total laparoscopic cholecystectomy with cholangiogram and situation of the cystic duct
with the drainage of an intra-abdominal abscess. Doing well, expected postoperative course.
Plan:
Cleared for discharge from a surgery perspective with a drain. She will need drain teaching and VNA set up prior to discharge.
Continue antibiotics d2/7
No NSAIDs
Discharge instructions updated. They were reviewed with the patient. Patient agreeable to plan of care above.
Time Spent
Total Time Spent with Patient (in minutes): 20
Subjective Data
-
Date of Service: July 24, 2025
Interval Events:
No acute events overnight. Slept well. Pain Controlled. Denies Nausea/Vomiting, +bowel function. Tolerating diet.
Objective Data
-
Intake and Output
07/23/25 07/24/25 07/25/25
06:59 06:59 06:59
Intake Total 980 / 980 1260 / 1260
Output Total 70 / 70 20 / 20
Balance 910 / 910 1240 / 1240
Intake:
Oral fluids 480 / 480 1260 / 1260
IV fluids (Total) 500 / 500
normosol 500 / 500
Output:
Drain Output (Total) 70 / 70 20 / 20
Right Lower Abdomen Trisatn- 70 / 70 20 / 20
Fisher
Other:
Number of approximated MODERATE 1 2
amounts of urine
Number of approximated LARGE 2
amounts of urine
Vital Signs
Temp Pulse Resp BP Pulse Ox
97.8 F 85 17 98/56 97
07/24/25 07:32 07/24/25 07:32 07/24/25 07:32 12/10/25 07:32 07/24/25 07:32
Lab Results
07/23/25 07:26
07/23/25 07:26
Calcium 8.8 mg/dl (8.4-10.2) 07/23/25 07:26
Total Bilirubin 1.0 mg/dl (0.2-1.3) 07/23/25 07:26
Direct Bilirubin 3.0 mg/dl (0.0-0.4) H 07/21/25 06:42
AST 93 U/L (14-36) H 07/23/25 07:26
ALT 141 U/L (0-35) H 07/23/25 07:26
Alkaline Phosphatase 140 U/L (38-126) H 07/23/25 07:26
Total Protein 5.6 g/dl (6.3-8.2) L 07/23/25 07:26
Albumin 2.6 g/dl (3.5-5.0) L 07/23/25 07:26
Physical Exam
-
GENERAL/NEURO: Awake, Alert, no distress
CHEST: Unlabored breathing on RA
ABDOMEN: Soft, Non-Tender, Non-Distended, incisions clean dry and intact. NITZA serosanguineous
Patient has a hickman catheter: No
Patient has a central line: No
--- NOTE | 2025-07-24 09:01 | W.PN.HOSP.TC ---
Today's Communication/Plan
-
Discharge after EKG
Assessment / Plan
Assessment / Plan
Physical Exam
General: Well Developed, Well Nourished, No Apparent Distress, Conversant
HEENT: Normocephalic, Moist mucous membranes and Atraumatic
Respiratory: Clear
Cardiac: S1/S2 and Regular Rhythm; No Murmur or Rub
GI: Soft, not distended, RUQ drain. Clean surgical site.
Musculoskeletal: No Clubbing, No Cyanosis and No Edema
Skin: No Rash
Neuro: Nonfocal/grossly intact
Psych: calm
# S/P Laparoscopic subtotal cholecystectomy with cholangiogram & Drainage of an intra-abdominal abscess
Sepsis / septic shock with leukocytosis, fever, hypotension, hyponatremia, elevated liver enzymes due to acute Gangrenous cholecystitis, intra-abdominal abscess
WBC is coming down
Afebrile
on IV ABx, surgery recommended total 7 days of antibiotic. Repeat EKG for QT interval. She tolerated quinolones in the past. Counseled regarding potential side effects including tendinitis, verbalized understand
OR culture, no organisms detected
Blood cultures are NGTD liver enzymes are coming down
MRCP: No MRCP evidence for choledocholithiasis.
Appreciate surgery help, okay to discharge with drain and oral antibiotic
# Sinus tachycardia
Resolved
Insomnia on Ambien
GERD
Continue PPI
Hypertension
Resume medication
IDDM
Resumed medications
# Per records
- bipolar, schizophrenia, MS, chronic back pain
Less restless.
Back on psych meds to stabilize her mood.
Total discharge time spent to see the patient, examined the patient, reviewed data and lab result, discuss discharge plan with patient, daughter on the phone, nursing staff around 67 minutes
Anticipated Discharge: Today
Subjective/Interval History
-
Date of Service: July 24, 2025
Less abdominal pain
She is tolerating diet
She wants script for pain medicine
Objective Data
-
Labs:
Laboratory Results
07/24/25
08:59
WBC Pending
Hgb Pending
Hct Pending
Plt Count Pending
Sodium Pending
Potassium Pending
Chloride Pending
Carbon Dioxide Pending
BUN Pending
Creatinine Pending
Glucose Pending
Calcium Pending
Total Bilirubin Pending
AST Pending
ALT Pending
Alkaline Phosphatase Pending
Vital Signs:
Vital Signs
Temp Pulse Resp BP Pulse Ox
97.8 F 85 17 98/56 97
07/24/25 07:32 07/24/25 07:32 07/24/25 07:32 07/24/25 07:32 07/24/25 07:32
I&O
07/23/25 07/24/25 07/25/25
06:59 06:59 06:59
Intake Total 980 / 980 1260 / 1260
Output Total 70 / 70 20 / 20
Balance 910 / 910 1240 / 1240
[2025-07-24 09:37] LABS: Hematocrit 31.8 % (37.0-47.0); Hemoglobin 10.9 g/dL (12.0-16.0); Mean Corp Hgb Conc. 34.3 g/dL (33.0-37.0); Mean Corpuscular Volume 82.6 fL (81.0-99.0); Platelet Count 259 10^3/uL (130-400); Red Cell Dist. Width 14.5 % (11.5-14.5)
[2025-07-24 09:57] LABS: ALT (SGPT) 91 U/L (0-35); AST (SGOT) 40 U/L (14-36); Albumin 2.3 g/dl (3.5-5.0); Alkaline Phosphatase 107 U/L (38-126); Blood Urea Nitrogen 25 mg/dl (7-17); Calcium 8.6 mg/dl (8.4-10.2); Carbon Dioxide 25 mmol/L (22-30); Chloride 104 mmol/L (98-107); Estimated Creatinine Clearance 87 ml/min; Glucose 104 mg/dl (70-99); Potassium 3.5 mmol/L (3.5-5.1); Sodium 133 mmol/L (135-145); Total Protein 5.1 g/dl (6.3-8.2); eGFR > 60.00
[2025-07-24 10:57] VITALS: BP 118/74
--- NOTE | 2025-07-24 11:38 | CM ---
MD entered order for discharge.
spoke with dgt Nohemi she said she will drive her home. IMM reviewed with dgt,
Pt has Reece drain.
Offered VN Requested [facility] PVCP DR Lyn .Yasmine Bonilla [facility] liaison notified of referral.
PLAN Home with [facility]
[2025-07-24] MEDS: PEPCID 20 MG PO (11:46)
--- NOTE | 2025-07-24 12:04 | VNURNOTE ---
Home Health Liaison met with patient and daughter at bedside to discuss [facility] nurse/therapy, visits, schedule and homebound status. Patient is agreeable and understands that visits at home will be 2-3 x per week to assess and teach medical and
drain management.
Patient is aware that [facility] will contact them for start of care within a few days after discharge from . Provided contact number for [facility].
PM [facility] referral completed in [facility].
[2025-07-24] MEDS: ATIVAN 0.5 MG PO (14:38)
--- NOTE | 2025-07-24 15:02 | W.DCSUMMARY ---
Discharge Summary
Discharge Data
Date of Admission: 07/20/25
Date of Discharge: 07/24/25
-
Pending Results: No
Hospital Course
59 years old female presented with abdominal pain, vomiting and diarrhea. She was found to have leukocytosis, fever, and mild tachycardia. LFTs showed elevated AST. US of abdomen revealed cholelithiasis/sludge with gallbladder wall thickening
pericholecystic fluid and a positive sonographic Jimenez sign. MRCP which demonstrates no choledocholithiasis, cholecystitis noted. Patient was evaluated by surgery. She started on intravenous fluid, intravenous antibiotic. Initial diagnosis was
acute cholecystitis with possible acute cholangitis. Patient was found to have gangrenous cholecystitis and intra-abdominal abscess upon laparoscopic examination. By Dr. Espinosa on patient underwent laparoscopic subtotal cholecystectomy with
cholangiogram, suture ligation of the cystic duct, drainage of intra-abdominal abscess 07/22/25. Patient remained on intravenous antibiotic. Diet was started slowly with good tolerance. Liver enzymes started to come down. WBC came down. Patient
was followed by surgery. She tolerated diet and advised to follow in the outpatient setting. Patient was given a course of antibiotic to finish 7 days total. Blood culture and OR culture did not show growth upon discharge. Patient was counseled
regarding potential side effects of Levaquin, she verbalized understanding. She was advised to hold her trazodone and hydroxyzine to avoid interaction with Levaquin. Patient remained hemodynamically stable. She requested prescription for pain
medicine other than Tylenol, she was given prescription for oxycodone. Patient was discharged home in a stable condition with home care services.
Discharge Plan
-
Patient Disposition: Home (Routine Discharge)
Discharge Diagnosis/Procedures: Gangrenous cholecystitis. Laparoscopic cholecystectomy
You received intravenous fluid, intravenous antibiotics. You are discharged on oral antibiotic to finish 7 days course.
- Flagyl, potential side effects include GI upset, nausea.
-Levofloxacin, potential side effects include tendinitis, prolonged QT. Hold trazodone and hydroxyzine while taking the medicine.
- You were given a prescription for pain medication called oxycodone. Avoid driving or operating machinery while taking it, potential side effect include constipation, drowsiness, sedation. Take oxycodone for severe pain only.
Condition: Good
Diet: No restrictions
Activity: No strenuous activity
Driving Restrictions: As prior to admission
Bathing Restrictions: OK to Shower
Activity Restrictions/Additional Instructions:
Instructions following Laparoscopic cholecystectomy
Please call [phone] if you have any questions or concerns after your surgery.
Wound Care:
Your incisions are covered with skin glue which will come off on it�s own in 5-10 days.
It is ok to shower the day after your surgery. Do not scrub the incisions, let soap and water wash over them and pat dry.
� Bruising around your incisions is normal.
� Using ice packs will help minimize this swelling.
� No swimming or soaking incisions for 1 week.
� Your stitches will dissolve and do not need to be removed.
Urinary retention:
If you are unable to urinate 6-8 hours after your surgery, please call [phone] to discuss further management.
Activity:
No heavy lifting more than 15 pounds for the next 3 weeks, then you may gradually lift heavier objects as tolerated by discomfort. Otherwise activity as tolerated by your comfort level.
Pain Management:
Use Tylenol, ibuprofen and ice packs to treat your pain.
� You may take 650 milligrams of Tylenol (Max 3 grams per day) every 6 hours, and 600 mg of ibuprofen also every 6 hours. (you can alternate them every 3 hours)
� You may use an ice pack to your incision as needed.
� If you still have pain not controlled by these measures, take your prescription pain medication as prescribed.
Medications:
You may resume your home medications.
Bowel Medications:
Prescription pain medication can make you constipated. If you take this medication, also take colace 100 mg twice daily (this is over the counter). If this is not sufficient, you may take Miralax (polyethylene glycol) to help move your bowels.
Diet:
After your procedure, there are no dietary restrictions. You may notice loose stools for up to 4 weeks after surgery with fatty meals, if this is the case you may have to adjust your diet as needed.
Driving restrictions:
No driving if you are taking prescription pain medication or if you think your normal reaction time and attentiveness has been slowed by your surgery.
Things to Look out for:
Worsening Abdominal pain, redness or drainage from incision
Call Doctor for:
Please call if you notice worsening redness or drainage from incision(s) lasting longer than 5 days after your surgery, any foul-smelling drainage from the incision, pain not controlled by pain medications, persistent nausea and vomiting, or for any
fevers greater than 101.3 F. The number for questions/concerns is [phone]
Follow-up:
Follow-up appointment will be scheduled with your surgeon in 3-4 weeks. Please call prior to your appointment if you have any questions or concerns. [phone]
NITZA DRAIN CARE INSTRUCTIONS
General Information:
Drains help to keep fluid from collecting by removing the extra blood and fluid from under the skin. A drain is temporary. It stays in place until the drainage has slowed down or stopped. Your doctor or nurse will decide when each drain should be
removed: This is usually after each drain has 30cc or less in 24 hours for 2 days in a row. When this happens, you should call the [facility] to schedule an appointment with the nurses to have it/them removed. This is usually not painful
and only takes a few seconds.
How do I care for the drains at home?
Pin your drains to your clothing by using a safety pin through the plastic loop on the top of the bulb. If the drain is not attached to your clothing, it may pull out from under your skin. Also, a drain usually feels more comfortable when it�s
attached. To care for the drain at home, you will have to empty the drain, ``strip�� the drain tubing, and change the dressing if applicable. See the following pages for instructions on how to do this.
What problems may I have with my drain?
� The bulb is not compressed- The bulb may not be squeezed tightly enough, the plug may not be closed securely, or the tube has slipped out a bit and is leaking. Follow the instructions on how to empty the drain.
If the bulb remains expanded, then notify your doctor or nurse during business hours.
� No drainage or sudden decrease in amount of drainage- This is usually due to clots in the drain. Follow the instructions on how to strip the drain tubing.
� The tube accidentally falls out- If this happens, place a dry gauze dressing over the drain site and notify your doctor or nurse during business hours.
� Increased redness, swelling, or heat around the tube insertion site- This may be a sign of infection. Take your temperature: if it is higher than 101F or 38.8C, call your doctor or nurse immediately. Otherwise, notify your doctor or nurse during
business hours and keep the dressing clean and dry.
Post-Surgical Drain Care:
After surgery, you will have one or two drains, called a Tristan-Fisher (NITZA) drain, placed near the incision. This device collects fluid, under suction, from your surgical area. The drain promotes healing and recovery, and reduces the chance of
infection. The drain will be in place until the drainage slows enough for your body to reabsorb fluid on its own. While you are hospitalized the nursing staff will care for the drain and teach you to continue to do so at home.
How to Empty Your NITZA Drain
Note: Wash your hands thoroughly before emptying your drain(s).
� Have the plastic measuring cup from the hospital ready to collect and measure the drainage. Please measure the output at the same two times every 24 hours and record the amount.
� Unpin the drain from your clothing.
Open the top of the drain. Turn the drain upside down and squeeze the contents of the bulb into the measuring cup. Be sure to empty the bulb as completely as possible. Flush the contents in the toilet.
� Use the drain output log chart to record the amount of drainage twice a day or any time the bulb is full. Record the total for 24 hours for each drain you have.
� If you have more than one drain, remember to record the drainage from each drain separately.
� To prevent infection, do not let the stopper or top of the bottle touch the measuring cup or any other surface.
� Use one hand to squeeze all of the air from the drain. With the drain still squeezed, use your other hand to replace the top. This creates the suction necessary to remove the fluids from your body.
� Pin the drain back on your clothing to avoid pulling it out accidently.
� Wash your hands again. Remember to wash your hands before and after the procedure to reduce the risk of infection.
Stripping the Tube
Often the tube may become blocked with products of healing or clot. If you do not have drainage, then:
� Hold the tube near where it is inserted in to the skin with your one hand.
� Use the other hand to hold a pencil and gently squeeze the tubing with the pencil while moving it down toward the drain away from your skin. This forces the more sold material into the bulb for better drainage.
� Repeat as necessary to start the draining again.
Removal of the Tube
� The tube may be removed once a single tube output is less than 30cc (1 oz.) for 24 hours. Please call the office to arrange a time to come in to have the drain removed.
� Please call the office [phone] if the output becomes thicker or has a bad odor or if you have any questions or concerns
Referrals:
Aram Espinosa MD [Active, Surgical] - in one to two weeks
Prescriptions:
New
levofloxacin 750 mg tablet
750 mg PO DAILY Qty: 3 0RF
metronidazole 500 mg tablet
500 mg PO BID Qty: 7 0RF
oxycodone 5 mg tablet
5 mg PO BID PRN (Reason: severe pain) Qty: 10 0RF
Continued
prazosin 1 mg Capsule
1 mg PO HS
meloxicam 15 mg Tablet
15 mg PO DAILYPRN PRN (Reason: mild pain)
cyanocobalamin (vitamin B-12) 1,000 mcg Tablet
1,000 mcg PO DAILY
therapeutic multivitamin Tablet
1 tab PO DAILY
zolpidem [Ambien] 10 mg Tablet
10 mg PO HS
rosuvastatin [Crestor] 5 mg Tablet
5 mg PO QPM
melatonin 10 mg Tablet
10 mg PO HSPRN PRN (Reason: sleep)
Mounjaro 7.5 mg/0.5 mL Pen Injector
7.5 mg SC SA
fluoxetine 40 mg Capsule
40 mg PO DAILY
clonidine HCl 0.1 mg Tablet
0.1 mg PO BID
lorazepam 0.5 mg Tablet
0.5 mg PO DAILY PRN (Reason: anxiety)
amitriptyline 10 mg Tablet
10 mg PO HS
etodolac 400 mg Tablet
400 mg PO BID
tizanidine 2 mg Capsule
2 mg PO Q8H PRN (Reason: muscle spasm)
vibegron 75 mg Tablet
75 mg PO DAILY
pregabalin 150 mg Capsule
150 mg PO BID
Held
hydroxyzine pamoate 50 mg Capsule
50 mg PO TID
Hold Instructions: Resume on 07/28/25.
trazodone 100 mg Tablet
100 mg PO HS
Hold Instructions: Resume on 07/28/25.
Discharge Orders:
Discharge Patient (As Directed); Ordered 07/24/25
Ordered By: Tiffany Venegas
Discharge Date and Time
Print Language: DANISH
[2025-07-24 15:08] VITALS: BP 105/74
--- NOTE | 2025-07-25 08:27 | OR.RPT ---
Operative Report
Operative Report
Patient Name: Aislinn Chaudhari
: 1965
Date of Operation: 07/22/2025
Preoperative Diagnosis: Acute cholecystitis
Postoperative Diagnosis: Gangrenous cholecystitis, intra-abdominal abscess
Procedure(s):
1. Laparoscopic subtotal cholecystectomy with Cholangiogram, + 22 modifier
2. Drainage of an intra-abdominal abscess
Surgeon(s):
Dr. Espinosa
Compliance Technician(s):
ALEK Syed
Anesthesia: General
Estimated Blood Loss: 67 cc
Urine Output: None
Drains/Lines/Implants: 19 [place] round Leonel drain
Specimens:
1. Gallbladder and contents
2. Right upper quadrant pus for culture
HPI/Surgical Indications:
This is a 59-year-old female, diabetic, morbidly obese status post laparoscopic Rachel-en-Y gastric bypass who presents to our hospital with postprandial right upper quadrant pain. Exam, labs and imaging are consistent with acute calculous
cholecystitis. Risks/Benefits/Alternatives were discussed at length, and the patient consented to proceed with surgery.
Operative Findings: Safe Veress needle entry required a single pass. Right upper quadrant Optiview trocar. Significant inflammation and purulent peritonitis noted particular in the right upper quadrant. Standard 4 port set up however an
additional 5 mm port was eventually placed in the left upper quadrant to assist with retraction given her very large liver. We were able to carefully peel off the rind of the surrounding fat off of the gallbladder wall which was notably gangrenous
in multiple points and perforated near the fundus with purulent bile extruding into a contained abscess in the right upper quadrant. This was sent for culture. Due to the size of the liver and inflammation at the hilum it was clear that we had to
do a top-down approach. The gallbladder fundus was elevated and the gallbladder was purposely entered just below it and taken down both the lateral and medial sides. Using a large suction device the gallstones were removed with minimal to no
spillage. The entire anterior plate of the gallbladder was taken off in the cystic duct orifice with bile emanating from it was visualized. There was a yellow cholesterol stone that was removed. The duct was then cannulated with cholangiocatheter
and a cholangiogram was performed. This showed appropriate filling of the duodenum, no distal filling defects and normal biliary anatomy. The catheter was removed and the duct was ligated using a 4-0 Maxon [id number] suture. 2 were used to
accomplish complete closure of the duct. The right upper quadrant was flooded and suctioned until clear. The back wall of the gallbladder was fulgurated. The right upper quadrant was carefully inspected for any other missing stones of which there
were none. All 4 x 4's along with the specimen were removed. Reinspection of the cystic duct stump confirmed hemostasis and there was no leaking bile. Floseal was then placed over the hilum and fossa. A 19 [place] round Leonel drain was then
introduced through the right lateralmost port passed across the field and secured to the skin with a 2-0 nylon suture. The 12 mm epigastric port was then closed with a 0 Maxon [id number] and the remainder of the ports were removed under direct
visualization.
Procedure Description:
The patient was brought to the Operating Room and placed in the supine position with one arm tucked. Following uneventful induction of general endotracheal anesthesia, an orogastric tube was placed. The abdomen was prepped and draped in the usual
sterile fashion. A timeout was performed confirming the procedure, consent, and that IV antibiotics were infused and sequential compression devices were confirmed to be on. The abdomen was entered using a left subcostal Veress technique which
required a single pass followed by a 5 mm right upper quadrant Optiview trocar. Pneumoperitoneum to 15 mmHg pressure was obtained without difficulty and we confirmed that no injury had occurred during our entry, despite several adhesions in the
left upper quadrant. The patient was positioned in reverse Trendelenberg and rotated with the right side up slightly. Two 5 mm trocars were then placed along the right subcostal margin, followed by a 12 mm port in the epigastrium. There was
purulent appearing bile in the right upper quadrant. The fundus of the gallbladder could barely be visible but was identified and the overlying fat was carefully dissected off. Due to the inflammation, most the tissue was quite oozy so 1 g of TXA
was administered by anesthesia at this point. A locking grasping forceps was placed on the fundus of the gallbladder where it was then retracted cephalad and to the right. Her liver was also quite large so an additional 5 mm left upper quadrant
port was placed to help provide exposure. The gallbladder wall was visibly necrotic with patchy areas of necrosis and a perforation on the lateral aspect from which infected bile was leaking. This pus was cultured. There is also notable
peritonitis noted in the right upper quadrant. It was clear the triangle of Calot was going to be very difficult to dissect due to the amount of inflammation and poor exposure from her enlarged liver. We elected to do a top-down cholecystectomy.
Two 4 x 4 Ray-Jannette's were placed in the abdomen 1 at the base of our dissection to help catch any stones. Using a laparoscopic bipolar energy device the gallbladder was purposely entered and at the fundus which was extended down both medially and
laterally. There were large gallstones that were suctioned up with large bore Najat suction device. There was no spillage of stones. I dissection continued inferiorly until we were able to identify the cystic duct orifice. The entire anterior
cap of the gallbladder was removed. There was an additional gallstone in the cystic duct that was removed and bile was noted to be emanating from the opening. A cholangiocatheter on an Chery clamp was inserted into the cystic duct and secured to
the surrounding tissue. A C-arm was draped and brought into the field. An intra-operative cholangiogram was performed and was noted to have:
No filling defects in the biliary tree
No significant biliary dilation
Brisk flow of contrast into the duodenum
Normal biliary anatomy
The catheter was then removed and the cystic duct was controlled with 2 [id number] 4-0 Maxon sutures. The gallbladder bed was inspected and excellent hemostasis was obtained, and the back wall of the gallbladder was fulgurated. The 4 x 4's
were removed. The gallbladder was extracted through the 12 mm trocar site using an endocatch bag without dilating the port site. The abdomen was again irrigated and excellent hemostasis was assured. Floseal was placed at the base to ensure
hemostasis. A 19 [place] round Leonel drain was introduced through the right lateralmost port and passed around the liver and across our field to assist with drainage of her intra-abdominal abscess. All remaining trocars were then removed and the
pneumoperitoneum was evacuated. The 12 mm trocar site was closed using 0 PDS suture. All trocar sites were closed at the skin level using 4-0 Monocryl followed by Dermabond. Overall, the patient tolerated the procedure well and was taken to the
Recovery Room postoperatively in stable condition.
I was the attending physician and performed the procedure with assistance of the BEAD FORMING MACHINE SET UP OPERATOR above. They were required due to the complexity of the procedure. During the procedure they assisted with port placement, gallbladder retraction, holding camera
and skin closure. I was present for all portions of the case.
A 22 modifier is being requested for this case as this required significantly more effort, time and instruments to safely accomplish this procedure laparoscopically then a typical gallbladder.
Aram Espinosa MD
== END 2025-07-24 15:19 | disposition home health service (06) | DRG 853 ==
LOC: 3 WEST ACU 12:32
PROVIDERS: Registered Nurse; Surgery; ADMITTING PHYSICIAN Internal Medicine; ATTENDING PHYSICIAN Internal Medicine; EMERGENCY PHYSICIAN Emergency Medicine; OTHER PHYSICIAN Surgery
PROC: 0FT44ZZ Resection of Gallbladder, Percutaneous Endoscopic Approach (ICD-10-PCS; 2025-07-22)
DX: A41.9 Sepsis, unspecified organism (principal); K65.1 Peritoneal abscess; R65.21 Severe sepsis with septic shock; K65.9 Peritonitis, unspecified; K80.00 Calculus of gallbladder with acute cholecystitis without obstruction; K82.A2 Perforation of gallbladder in cholecystitis; Z11.52 Encounter for screening for COVID-19; K82.A1 Gangrene of gallbladder in cholecystitis; K21.9 Gastro-esophageal reflux disease without esophagitis; I10 Essential (primary) hypertension; F31.9 Bipolar disorder, unspecified; F20.9 Schizophrenia, unspecified
CPT/HCPCS: 74181; 74300; 76000; 76705; 80053; 82248; 83605; 83690; 85025; 85027; 85610; 87040; 87070; 87075; 87205; 87502; 87811; 88304; 93005; 96361; 96374; 96375; 99284; A4300

== ENCOUNTER 2025-07-29 22:01 | Inpatient (IN) | payer OTHER, SELFPAY ==
[2025-07-29 10:47] VITALS: BP 99/59
--- NOTE | 2025-07-29 14:15 | CON.GS ---
Addendum entered and electronically signed by Aram Espinosa MD 07/30/25 08:15:
Delayed entry note for 07/29/2025
I saw and examined the patient independently.
The Dimpling Machine Operator's note was reviewed and I agree with the note, assessment and plan except where noted below.
Comment: 59-year-old female with a history of a laparoscopic gastric bypass in 2010 recently admitted with cholecystitis and underwent a successful laparoscopic subtotal cholecystectomy with cholangiogram that required suture ligation of the cystic
duct and drainage of an intra-abdominal abscess. A NITZA drain was left postoperatively and was clear until Tuesday when the color changed from serosanguineous to bilious concerning for a cystic duct stump leak along. CT scan confirms collection in
the gallbladder fossa, no other significant undrained collections. Exam, vitals, blood work all reassuring.
GI consult for ERCP, sphincterotomy and stenting. I did discuss this case with Dr. York.
Options reviewed with briefly with patient include laparoscopic/open exploration, laparoscopic transgastric assisted ERCP, double-balloon push enteroscopy and possible Edge procedure.
I have low suspicion for active infection, will cover with antibiotics.
Okay for regular diet until procedure time and can be determined.
Keep NITZA to bulb suction.
Out of bed and ambulate as able.
General Surgery will continue to follow, appreciate hospitalist managing her other chronic conditions.
Original Note:
Consultation
-
Date/Time Consultation Performed: 07/29/25 1400
Medical History
-
Chief Complaint: epigastric discomfort
History of Present Illness:
59 yo female with a h/o htn, niddm, bipolar, schizophrenia, MS and obesity s/p lap gastric bypass 2010 and more recent weight loss of 50lbs on Mounjaro (intentional) who was admitted from 07/20-07/24 with gangrenous cholecystitis with laparoscopic
subtotal cholecystectomy with cholangiogram and suture ligation of the cystic duct and drainage of intraabdominal abscess on 07/22/25 with NITZA drain left in place post operatively. She was discharged to complete a course of antibiotics at home with NITZA
in place for monitoring. Initially, her outputs from the NITZA drain were serosanguineous but then changed to bile yesterday and she presented to clinic for evaluation and was sent to the ED for admission and additional work up. She complains of
symptoms of heartburn and upper abdominal pain predominantly in the epigastrium and LUQ. She has had chills and sweats and is unsure if she has had fevers. She denies nausea or vomiting. She has been passing loose green stools. Her daughter is at
bedside to assist with history.
Past Medical History
Past Medical History: NIDDM, Psychiatric (bipolar, schizophrenia) and Other (obesity, MS, esophageal dysfunction with prior EGD's, transfusions for prior GIB)
Past Surgical History: Bariatric (lap gastric bypass 2010), Cholecystectomy (subtotal 07/22/25) and Orthopedic (wrist surgery)
Social History
Tobacco: Non-Smoker
Alcohol: None
Family History
Family History: Reviewed & Not Pertinent
Allergies / Home Medications
Allergy/AdvReac Type Severity Reaction Status Date / Time
ibuprofen Allergy Unknown Verified 07/29/25 10:52
Penicillins Allergy Unknown Verified 07/29/25 10:52
�Medication �Instructions �Recorded �Confirmed �Type
cyanocobalamin (vitamin B-12) 1,000 mcg PO DAILY Supplement 07/20/25 07/20/25 History
1,000 mcg tablet
hydroxyzine pamoate 50 mg capsule 50 mg PO TID Mental Health/Anxiety 07/20/25 07/20/25 History
Held on 07/24/25.
Instructions: Resume on
07/28/25.
melatonin 10 mg tablet 10 mg PO HSPRN PRN sleep 07/20/25 07/20/25 History
meloxicam 15 mg tablet 15 mg PO DAILYPRN PRN mild pain 07/20/25 07/20/25 History
prazosin 1 mg capsule 1 mg PO HS Blood Pressure 07/20/25 07/20/25 History
rosuvastatin 5 mg tablet (Crestor) 5 mg PO QPM High Cholesterol 07/20/25 07/20/25 History
therapeutic multivitamin 1 tab PO DAILY Supplement 07/20/25 07/20/25 History
tirzepatide 7.5 mg/0.5 mL 7.5 mg SC SA weight management 07/20/25 07/20/25 History
subcutaneous pen injector
(Ervin)
zolpidem 10 mg tablet (Ambien) 10 mg PO HS Sleep 07/20/25 07/20/25 History
amitriptyline 10 mg tablet 10 mg PO HS depression/sleep 07/21/25 07/21/25 History
clonidine HCl 0.1 mg tablet 0.1 mg PO BID Heart 07/21/25 07/21/25 History
Disease/Condition
etodolac 400 mg tablet 400 mg PO BID Pain 07/21/25 07/21/25 History
fluoxetine 40 mg capsule 40 mg PO DAILY depression/anxiety 07/21/25 07/21/25 History
lorazepam 0.5 mg tablet 0.5 mg PO DAILY PRN anxiety 07/21/25 07/21/25 History
pregabalin 150 mg capsule 150 mg PO BID Pain 07/21/25 07/21/25 History
tizanidine 2 mg capsule 2 mg PO Q8H PRN muscle spasm 07/21/25 07/21/25 History
trazodone 100 mg tablet 100 mg PO HS depression/sleep 07/21/25 07/21/25 History
Held on 07/24/25.
Instructions: Resume on
07/28/25.
vibegron 75 mg tablet 75 mg PO DAILY Urinary Issue 07/21/25 07/21/25 History
levofloxacin 750 mg tablet 750 mg PO DAILY #3 tabs 07/24/25 Rx
metronidazole 500 mg tablet 500 mg PO BID #7 tabs 07/24/25 Rx
oxycodone 5 mg tablet 5 mg PO BID PRN severe pain #10 07/24/25 Rx
tabs
oxycodone 5 mg tablet 5 mg PO Q6HPRN PRN 07/27/25 Rx
breakthrough/severe pain #8 tabs
Review of Systems
-
History Source: Patient and Family
All other systems: Negative unless noted
A 10 point review of systems was completed, and was negative except as per HPI.
Physical Exam
Vital Signs
Temp Pulse Resp BP Pulse Ox
98.3 F 70 16 99/59 97
07/29/25 10:47 07/29/25 10:47 07/29/25 10:47 07/29/25 10:47 07/29/25 10:47
Physical Exam
General: Well Developed, Well Nourished and No Apparent Distress
HEENT: Normocephalic
Respiratory: Non Labored Respirations
GI: Soft, Non Distended and Tender (epigastrium)
Skin: Warm, Dry and Other (Lap sites well healed)
Neuro: Awake, Alert and AO x 3
Psych: Calm
Data Reviewed
-
CT Scan: Image Personally Visualized and interpreted, Report Reviewed by me, Discussed with Physician, Discussed with Patient and Discussed with Family
Labs: Labs Reviewed by me, Discussed with Physician, Discussed with Patient and Discussed with Family
Old Records: Reviewed
Assessment / Plan
-
59 yo with h/o htn, niddm, bipolar, schizophrenia, MS and obesity s/p lap gastric bypass 2010 and more recent weight loss of 50lbs on Mounjaro (intentional) who was admitted from 07/20-07/24 with gangrenous cholecystitis with laparoscopic subtotal
cholecystectomy with cholangiogram and suture ligation of the cystic duct and drainage of intraabdominal abscess on 07/22/25 with NITZA drain left in place post operatively for management who presented to clinic today with changes to color of her
drainage with bile/green drainage since 07/28 with symptoms of epigastric pain/luq pain and heartburn and was advised to present to the ED where she is seen currently with her daughter at bedside. AFVSS. Labs pending.
Plan:
Admit to hospitalist for medical management
Consult gastroenterology, case has been discussed with Dr. York
Keep NPO
Check CT of the abd/pelvis with IV contrast
LFT's, lipase and CBC pending
C/W NITZA drain
Low suspicion for infection, but would initiate IV zosyn q6h empirically
Case discussed with ED team
--- NOTE | 2025-07-29 14:23 | ED.GENMED ---
History of Present Illness
<April Ann NP - Last Filed: 07/29/25 22:45>
General
Chief Complaint: Post Operative Problem(s)
Source: patient
Exam Limitations: none
Time Seen by Provider: 07/29/25 14:01
Nursing documentation reviewed up to this point in time: agreed with
History of Present Illness
History of Present Illness:
Patient to the emergency department for complications s/p cholecystectomy. Patient was admitted here on 07/20 for acute cholecystitis. She had surgery by Dr. Espinosa. She was found to have gangrenous cholecystitis and an intra-abdominal abscess.
She had a subtotal cholecystectomy and drainage of the intra-abdominal abscess on 07/22. NITZA drain was placed. She was treated with Levaquin and Flagyl. She reports completing course of antibiotic. She was discharged home on 07/24. She reports
since Tuesday she has noticed green drainage in NITZA drain. She had a follow-up appointment with Dr. Espinosa in office today and was advised to come to the emergency department for admission, possible bile leak. On arrival to ED patient is awake and
alert. Vital signs are stable and she remains afebrile. She reports generalized abdominal pain. She denies any nausea or vomiting. She reports diarrhea. Brought to ED by daughter for evaluation.
Past History
<April Ann NP - Last Filed: 07/29/25 22:45>
Past History
ED Past Medical History: GERD, HTN, NIDDM, Psychiatric (Anxiety, bipolar disorder, schizophrenia) and Other (MS, low back pain, chronic pain maintained on gabapentin)
ED Past Surgical History: Other (Gastric bypass)
Patient has exhibited threatening behavior?: No
PSI?: No
Social History
Tobacco: Non-smoker
Alcohol: None
Drug: None
Living: with family
Employment: Employed
Family History
Family History: Other (Noncontributory)
Review of Systems
<April Ann NP - Last Filed: 07/29/25 22:45>
Review of Systems
Allergies reviewed?: Yes
All Other Systems: ROS reviewed and negative except as documented in HPI and ROS
Constitutional: Reports no symptoms
EENT: Reports no symptoms
Respiratory: Reports no symptoms
Cardiac: Reports no symptoms
ABD/GI: Reports abdominal pain and diarrhea
: Reports no symptoms
Musculoskeletal: Reports no symptoms
Skin: Reports no symptoms
Neurological: Reports weakness
Psychiatric: Reports no symptoms
Phy Exam
<April Ann NP - Last Filed: 07/29/25 22:45>
General Physical Exam
General Presentation: moderate distress
General age: appears stated age
General Skin: warm and dry
General Habitus: normal
General Mental: alert
Cardiovascular Exam
Cardiovascular Exam: regular rate/rhythm
Gastrointestinal Exam
Gastrointestinal Exam: normal bowel sounds, soft, no organomegaly, no pulsatile mass and non distended
Palpation: generalized: Moderate tenderness
Abdominal Scars: other (s/p cholecystectomy. Incisions with skin edges intact. Dermabond in place. No redness or swelling)
Musculoskeletal Exam
Musculoskeletal Exam: full ROM and neuro vasc intact
Skin Exam
Skin Exam: normal color, warm/dry and no rash
Psychiatric Exam
Psychiatric Exam: normal mood/affect
Course
<April Ann NP - Last Filed: 07/29/25 22:45>
Orders/Labs/Results
Orders:
Orders
07/29/25 14:02
Electrocardiogram (*1) Urgent
Reason for Study: Chest Pain
EKG- Treatment ONCE
07/29/25 14:09
CT Abd/pelvis W Iv Cont Urgent
Comment:
Reason For Exam: epigastric pain, s/p lap anitra
07/29/25 14:10
IV Insert/Care/Rem.- Treatment PRN
0.9% Sodium Chloride 1000 ml [Nss] 1,000 ml IV BOLUS
07/29/25 14:22
HYDROmorphone [Dilaudid] 0.5 mg IV NOW STA
Ondansetron Injectable [Zofran] 4 mg IV NOW STA
07/29/25 14:23
0.9% Sodium Chloride 1000 ml [Nss] 1,000 ml IV BOLUS
07/29/25 14:26
Complete Blood Count/With Diff Urgent
Comprehensive Metabolic Panel Urgent
Lipase Urgent
07/29/25 14:46
Consult Gastroenterology [GASTROINTESTINAL CONSULT] Routine
Consulting Provider: Javon York
Was physician already notified: Yes
Reason for consult: bile leak
Consult Surgery [SURGICAL CONSULT] Routine
Consulting Provider: Aram Espinosa
Was physician already notified: Yes
Reason for consult: post op
07/29/25 19:44
LevoFLOXacin 500 MG/100 ML [Levaquin] 500 mg in 100 ml IV NOW
MetroNIDAZOLE 500 MG/100 ML [Flagyl 500 mg] 100 ml IV NOW
07/29/25 20:01
HYDROmorphone [Dilaudid] 0.5 mg IV NOW STA
07/29/25 21:33
Admit/Transfer Patient As Directed
Co-Sign Provider:
Level of Care: Inpatient admission
Assign to:: Medical/Surgical
Physician / Group: fawn
Diagnosis: post surgical abscess vs biloma
Reason for Hospitalization: abscess vs biloma
Expected length of stay greater than two midnights?: Yes
ELOS- Estimated Length of Stay in days: 3
I certify the patient meets the requirements for IP care: Yes
PRN Pain Medication Management As Directed
May give lesser potent ordered pain med per pt: Yes
preference::
Protocol:: Medication orders for pain may be administered in a
manner that supports deferring to patient preference
when the pt is:
- Requesting an ordered lesser potent pain medication.
Least to most potent pain medications are defined
as: acetaminophen < NSAID < tramadol < opioids
(morphine, oxycodone, hydromorphone).
- Requesting a lesser dose of the same medication IF
ORDERED.
- Requesting a less intrusive route of administration
if both routes are prescribed by the provider (PO <
IV).
07/29/25 21:35
Code Status As Directed
Resuscitation Status: Full Code
07/29/25 21:38
EKG [Electrocardiogram (*1)] Stat
Reason for Study: QTc Monitoring
Abnormal Lab Results
07/29/25
14:26
WBC 10.9 H 10^3/uL
(4.8-10.8)
Hgb 11.9 L g/dL
(12.0-16.0)
Hct 36.5 L %
(37.0-47.0)
MCHC 32.6 L g/dL
(33.0-37.0)
RDW 14.6 H %
(11.5-14.5)
Plt Count 532 H D 10^3/uL
(130-400)
Abs Immat Gran (auto) 0.2 H 10^3/uL
(0-0.05)
Absolute Neuts (auto) 8.2 H 10^3/uL
(1.4-6.5)
Absolute Monos (auto) 0.7 H 10^3/uL
(0.1-0.6)
Immature Gran % 1.4 H %
(0-0.5)
Lymphocytes % 16.4 L %
(20.5-51.1)
Sodium 134 L mmol/L
(135-145)
Creatinine 0.5 L mg/dL
(0.6-1.0)
Glucose 100 H mg/dl
(70-99)
Albumin 3.2 L g/dl
(3.5-5.0)
07/29/25 14:26
07/29/25 14:26
Vital Signs
Initial and Last Documented VS:
Initial Vital Signs
Temp Pulse Resp BP Pulse Ox
98.3 F 70 16 99/59 97
07/29/25 10:47 07/29/25 10:47 07/29/25 10:47 07/29/25 10:47 07/29/25 10:47
Last Documented Vital Signs
Temp Pulse Resp BP Pulse Ox
98.3 F 73 19 123/63 95
07/29/25 10:47 07/29/25 22:00 07/29/25 22:00 07/29/25 18:00 07/29/25 22:00
<Camron Clifton, DO - Last Filed: 07/29/25 20:09>
Orders/Labs/Results
Orders:
Orders
07/29/25 14:02
Electrocardiogram (*1) Urgent
Reason for Study: Chest Pain
EKG- Treatment ONCE
07/29/25 14:09
CT Abd/pelvis W Iv Cont Urgent
Comment:
Reason For Exam: epigastric pain, s/p lap anitra
07/29/25 14:10
IV Insert/Care/Rem.- Treatment PRN
0.9% Sodium Chloride 1000 ml [Nss] 1,000 ml IV BOLUS
07/29/25 14:22
HYDROmorphone [Dilaudid] 0.5 mg IV NOW STA
Ondansetron Injectable [Zofran] 4 mg IV NOW STA
07/29/25 14:23
0.9% Sodium Chloride 1000 ml [Nss] 1,000 ml IV BOLUS
07/29/25 14:26
Complete Blood Count/With Diff Urgent
Comprehensive Metabolic Panel Urgent
Lipase Urgent
07/29/25 14:46
Consult Gastroenterology [GASTROINTESTINAL CONSULT] Routine
Consulting Provider: Javon York
Was physician already notified: Yes
Reason for consult: bile leak
Consult Surgery [SURGICAL CONSULT] Routine
Consulting Provider: Aram Espinosa
Was physician already notified: Yes
Reason for consult: post op
07/29/25 19:44
LevoFLOXacin 500 MG/100 ML [Levaquin] 500 mg in 100 ml IV NOW
MetroNIDAZOLE 500 MG/100 ML [Flagyl 500 mg] 100 ml IV NOW
07/29/25 20:01
HYDROmorphone [Dilaudid] 0.5 mg IV NOW STA
07/29/25 21:33
Admit/Transfer Patient As Directed
Co-Sign Provider:
Level of Care: Inpatient admission
Assign to:: Medical/Surgical
Physician / Group: fawn
Diagnosis: post surgical abscess vs biloma
Reason for Hospitalization: abscess vs biloma
Expected length of stay greater than two midnights?: Yes
ELOS- Estimated Length of Stay in days: 3
I certify the patient meets the requirements for IP care: Yes
PRN Pain Medication Management As Directed
May give lesser potent ordered pain med per pt: Yes
preference::
Protocol:: Medication orders for pain may be administered in a
manner that supports deferring to patient preference
when the pt is:
- Requesting an ordered lesser potent pain medication.
Least to most potent pain medications are defined
as: acetaminophen < NSAID < tramadol < opioids
(morphine, oxycodone, hydromorphone).
- Requesting a lesser dose of the same medication IF
ORDERED.
- Requesting a less intrusive route of administration
if both routes are prescribed by the provider (PO <
IV).
07/29/25 21:35
Code Status As Directed
Resuscitation Status: Full Code
07/29/25 21:38
EKG [Electrocardiogram (*1)] Stat
Reason for Study: QTc Monitoring
Abnormal Lab Results
07/29/25
14:26
WBC 10.9 H 10^3/uL
(4.8-10.8)
Hgb 11.9 L g/dL
(12.0-16.0)
Hct 36.5 L %
(37.0-47.0)
MCHC 32.6 L g/dL
(33.0-37.0)
RDW 14.6 H %
(11.5-14.5)
Plt Count 532 H D 10^3/uL
(130-400)
Abs Immat Gran (auto) 0.2 H 10^3/uL
(0-0.05)
Absolute Neuts (auto) 8.2 H 10^3/uL
(1.4-6.5)
Absolute Monos (auto) 0.7 H 10^3/uL
(0.1-0.6)
Immature Gran % 1.4 H %
(0-0.5)
Lymphocytes % 16.4 L %
(20.5-51.1)
Sodium 134 L mmol/L
(135-145)
Creatinine 0.5 L mg/dL
(0.6-1.0)
Glucose 100 H mg/dl
(70-99)
Albumin 3.2 L g/dl
(3.5-5.0)
07/29/25 14:26
07/29/25 14:26
Vital Signs
Initial and Last Documented VS:
Initial Vital Signs
Temp Pulse Resp BP Pulse Ox
98.3 F 70 16 99/59 97
07/29/25 10:47 07/29/25 10:47 07/29/25 10:47 07/29/25 10:47 07/29/25 10:47
Last Documented Vital Signs
Temp Pulse Resp BP Pulse Ox
98.3 F 73 19 123/63 95
07/29/25 10:47 07/29/25 22:00 07/29/25 22:00 07/29/25 18:00 07/29/25 22:00
<April Ann NP - Last Filed: 07/29/25 22:45>
*Radiology
Radiology exam reviewed: radiology read reviewed
*Pulse Oximetry
SaO2: 97
Oxygen Mode of Delivery: Room air
Patient hypoxic: no
*Critical Care Note
Total Time (30-74mins, 75-104mins- exclusive of procedures): Not Applicable
<April Ann NP - Last Filed: 07/29/25 22:45>
Update Note
Update Note:
Patient to the emergency department at the request of Dr. Espinosa for a change in her NITZA drain drainage. She had a cholecystectomy approximately 1 week ago. NITZA drainage changed from serosanguineous to green bile over the weekend. She denies any
fever or chills. Vital signs on arrival to ED are stable and she remains afebrile. Labs reviewed WBC 10.9 which is improved from her admission labs. LFTs are normal. CT of abdomen pelvis was completed as requested by Dr. Espinosa. CT findings of
continued fluid within the gallbladder fossa which may represent residual gallbladder or possible biloma. There is a small peripherally enhancing collection inferior to the fluid at the gallbladder fossa. This may represent a small abscess or
biloma. Patient to be admitted to the hospitalist as requested by surgery.. As requested by surgery patient will be placed back on antibiotics. She is penicillin allergic. Will place on Flagyl and Levaquin. Dr. Esposito notified of CT findings.
ED Attending Note
<April Ann NP - Last Filed: 07/29/25 22:45>
-
Portions of this chart may have been created with voice recognition software.� Occasional wrong word or��sound alike� substitutions may have occurred due to the inherent limitations of voice recognition software.
<Camron Clifton, DO - Last Filed: 07/29/25 20:09>
ED Attending Note
Patient seen and examined by attending physician: Yes
ED Attending Note:
I reviewed and agree with history treatment plan by April Ann NP. My exam revealed 59-year-old female no acute distress, biliary drainage from right Tristan-Fisher drain. Admit to hospitalist, treated with Zosyn.
Discharge Plan
Departure
Patient Disposition: Admit
Date of Disposition: 07/29/25
Time of Disposition: 19:45
Presentation/result/management discussed w/ accepting MD/DO: Hospitalist
Condition: Fair
Covid-19: Not Applicable
Discharge Problem:
Abdominal pain
Interventions
Interventions:
*General Assessment Last Done: 07/29/25 13:54
*Neglect/Abuse Screening Last Done: 07/29/25 13:53
[facility] Risk Assessment Tool Last Done: 07/29/25 15:18
*Risk Screen - Suicide (C-SSRS) Last Done: 07/29/25 13:53
ED-Skin Assessment Last Done: 07/29/25 20:35
[2025-07-29] MEDS: ZOFRAN 4 MG IV (14:35)
[2025-07-29] MEDS: NSS 1000 IV ×2 (14:35→23:50)
[2025-07-29] MEDS: DILAUDID 0.5 MG IV ×2 (14:36→20:08)
[2025-07-29 14:45] LABS: Hematocrit 36.5 % (37.0-47.0); Hemoglobin 11.9 g/dL (12.0-16.0); Mean Corp Hgb Conc. 32.6 g/dL (33.0-37.0); Mean Corpuscular Volume 84.1 fL (81.0-99.0); Nucleated Red Blood Cells % 0 %; Platelet Count 532 10^3/uL (130-400); Red Cell Dist. Width 14.6 % (11.5-14.5)
[2025-07-29 15:01] LABS: ALT (SGPT) 28 U/L (0-35); AST (SGOT) 24 U/L (14-36); Albumin 3.2 g/dl (3.5-5.0); Alkaline Phosphatase 97 U/L (38-126); Blood Urea Nitrogen 7 mg/dl (7-17); Calcium 8.7 mg/dl (8.4-10.2); Carbon Dioxide 24 mmol/L (22-30); Chloride 100 mmol/L (98-107); Glucose 100 mg/dl (70-99); Lipase 143 U/L (23-300); Potassium 3.7 mmol/L (3.5-5.1); Sodium 134 mmol/L (135-145); Total Protein 6.6 g/dl (6.3-8.2); eGFR > 60.00
[2025-07-29 16:00] VITALS: BP 103/62
[2025-07-29 17:00] VITALS: BP 112/62
[2025-07-29 18:00] VITALS: BP 123/63
[2025-07-29] MEDS: LEVAQUIN 100 IV (20:09)
--- NOTE | 2025-07-29 21:08 | HPS.HSE ---
Addendum entered and electronically signed by Palmer Monroe DO 07/29/25 23:23:
Patient seen and examined independently. Agree with findings and plan as set forth by DORIAN Hendrxi.
Patient is a 59y F with PMH significant for hypertension, DM-II and recent cholecystitis s/p subtotal cholecystectomy who presents to ED from Surgery office for admission / further evaluation. Patient reports increased abdominal discomfort over
the past few days with change in NITZA drainage from scant / bloody to increased volume of yellow / green liquid. No N/V. No fevers / chills.
Ass:
Post-Op Biloma v Seroma v Abscess
s/p Subtotal Cholecystectomy 07/22/25
GERD
Bipolar Depression / Schizophrenia
Multiple Sclerosis
? HTN
? DM
Plan:
Admit for further evaluation and treatment.
NPO, IV abx. Follow NITZA output.
Surgery and GI consulted for further evaluation.
Reported history of HTN and DM-II, but on meds for neither.
Follow BP.
Check A1C.
Original Note:
Family Physician
-
Family Physician: Nikko Lyn MD
Chief Complaint
-
abdominal pain
History of Present Illness
59 year old with PMH for GERD, HTN, NIDDM, anxiety, Bipolar, schizophrenia, MS Patient to the emergency department for complications s/p cholecystectomy. Patient was admitted here on 07/20 for acute cholecystitis. She had surgery by Dr. Espinosa.
She was found to have gangrenous cholecystitis and an intra-abdominal abscess. She had a subtotal cholecystectomy and drainage of the intra-abdominal abscess on 07/22. NITZA drain was placed. She was treated with Levaquin and Flagyl. She reports
completing course of antibiotic. She was discharged home on 07/24.
She reports since Tuesday she has noticed green drainage in NITZA drain. patient complained of right sided abdominal pain since then. today she had black diarrhea. she was nauseous. denied any vomit. she complained of chills, MUNROE and lightheaded today.
She had a follow-up appointment with Dr. Espinosa in office today and was advised to come to the emergency department for admission. denied dizzy or syncope. denied fever, chest pain, sob. denied dysuria or hematuria.
patient received iv Levaquin and Flagyl in ER. patient also received Dilaudid , NS and bolus in Er. admitting for further management.
Medical History
Past Medical History
Past Medical History: Reports Other
Additional Past Medical History:
- Oxygen failure, hemorrhoids, esophageal dysfunction, GI bleed
Past Surgical History: Reports Other
Additional Past Surgical History:
Lap gastric bypass, cholecystectomy, wrist surgery
Social History
Tobacco: Non-smoker
Alcohol: None
Drug: None
Family History
Family History: Not pertinent
Allergies / Home Medications
Allergies reflects when Allergies were last updated in [facility].
Home Medications with original date entered in [facility]
Allergy/Medication List:
Allergies
Allergy/AdvReac Type Severity Reaction Status Date / Time
ibuprofen Allergy Unknown Verified 07/29/25 10:52
Penicillins Allergy Unknown Verified 07/29/25 10:52
Home Medications
cyanocobalamin (vitamin B-12) 1,000 mcg tablet 1,000 mcg PO DAILY Supplement 07/20/25
hydroxyzine pamoate 50 mg capsule 50 mg PO TID Mental Health/Anxiety 07/20/25
Held on 07/24/25. Instructions: Resume on 07/28/25.
melatonin 10 mg tablet 10 mg PO HSPRN PRN sleep 07/20/25
therapeutic multivitamin 1 tab PO DAILY Supplement 07/20/25
tirzepatide 7.5 mg/0.5 mL subcutaneous pen injector (Mounjaro) 7.5 mg SC SA weight management 07/20/25
zolpidem 10 mg tablet (Ambien) 10 mg PO HSPRN PRN sleep 07/20/25
amitriptyline 10 mg tablet 10 mg PO HS depression/sleep 07/21/25
etodolac 400 mg tablet 400 mg PO BID Anti-Inflammatory 07/21/25
fluoxetine 40 mg capsule 40 mg PO DAILY depression/anxiety 07/21/25
lorazepam 0.5 mg tablet 0.5 mg PO DAILYPRN PRN anxiety 07/21/25
pregabalin 150 mg capsule 150 mg PO BID Pain 07/21/25
trazodone 100 mg tablet 100 mg PO HS depression/sleep 07/21/25
Held on 07/24/25. Instructions: Resume on 07/28/25.
omeprazole 40 mg capsule,delayed release 40 mg PO DAILY Gastrointestinal Issue 07/29/25
oxycodone 5 mg tablet 5 mg PO Q6HPRN PRN severe pain 07/29/25
Review of Systems
-
Constitutional: Reports Chills
EENT: Reports No Symptoms
Respiratory: Reports No Symptoms
Cardiac: Reports No Symptoms
Abdomen/GI: Reports Abdominal Pain, Nausea and Diarrhea
: Reports No Symptoms
Musculoskeletal: Reports No Symptoms
Skin: Reports No Symptoms
Neurological: Reports Dizzy and Headache
Endocrine: Reports No Symptoms
Hematologic/Lymphatic: Reports No Symptoms
Psych: Reports No Symptoms
Physical Exam
Vital Signs
Vital Signs
Temp Pulse Resp BP Pulse Ox
98.3 F 82 18 123/63 96
07/29/25 10:47 07/29/25 20:30 07/29/25 20:30 07/29/25 18:00 07/29/25 20:30
Physical Exam
General: Well Developed, Well Nourished and No Apparent Distress
HEENT: NormoCephalic, Moist mucous membranes and Atraumatic
Respiratory: Clear
Cardiac: S1/S2 and Regular Rhythm; No Murmur or Rub
GI: Soft, Non Tender, Non Distended and Normal Bowel Sounds; No Organomegaly
Rectal: Deferred by Provider
Musculoskeletal: No Clubbing, No Cyanosis and No Edema
Skin: No Rash
Neuro: AO x 3 and Nonfocal/grossly intact
Psych: Calm
Laboratory Results
-
07/29/25 14:
07/29/25 14:
Laboratory Results
Total Bilirubin 0.5 mg/dl (0.2-1.3) 07/29/25 14:
AST 24 U/L (14-36) 07/29/25 14:
ALT 28 U/L (0-35) 07/29/25 14:
Alkaline Phosphatase 97 U/L (38-126) 07/29/25 14:
Lipase 143 U/L (23-300) 07/29/25 14:
Data Reviewed
-
CT Scan: Report Reviewed by me
Lab Data: Labs Reviewed by me
Impression/Plan
-
#abdominal pain likely post surgical abscess vs biloma
#s/p Laparoscopic subtotal cholecystectomy with cholangiogram & Drainage of an intra-abdominal abscess (07/22)
-surgery consulted.
-wbc 10.9
-IV ceftriaxone and Flagyl
-GI consulted
-keep patient NPO
-dilaudid prn for pain
-CT abdomen pelvis with Changes of prior cholecystectomy. There is expected postoperative stranding within the gallbladder fossa, however there is continued fluid within the gallbladder fossa which may represent residual gallbladder or a possible
biloma. Extending inferiorly from the fluid in the gallbladder fossa is a small peripherally enhancing collection measuring 1.0 x 0.8 cm which may represent a small abscess or biloma. This extends just posterior to the hepatic flexure.Prior
Rachel-en-Y gastric bypass with a small hiatal hernia.Right greater than left bibasilar atelectasis.Large exophytic cyst along the lower pole the right kidney measuring up to 14.1 cm with associated mass effect.
#GERD
Continue PPI
#bipolar, schizophrenia, MS, chronic back pain
-amitriptyline,fluoxetine, hydroxyzine, lorazepam,melatonin continued
-ambien for sleep continued
#DVT prophylaxis
-scd
#CODE status
-full code
[2025-07-29] MEDS: FLAGYL 500 MG 100 IV (21:59)
[2025-07-29 23:00] VITALS: BP 129/72
[2025-07-29 23:20] VITALS: BMI 31.5
[2025-07-29] MEDS: ROCEPHIN 1000 MG IV (23:49)
[2025-07-29] MEDS: ATARAX 50 MG PO (23:49)
[2025-07-29] MEDS: STERILE WATER FOR INJECTION 10 ML IV (23:49)
[2025-07-29] MEDS: AMBIEN 10 MG PO (23:49)
[2025-07-29] MEDS: DESYREL 100 MG PO (23:49)
[2025-07-29] MEDS: ELAVIL 10 MG PO (23:49)
[2025-07-30] MEDS: DILAUDID 0.5 MG IV ×3 (04:39→16:55)
--- NOTE | 2025-07-30 06:55 | CON.GI ---
Addendum entered and electronically signed by Javon York MD 07/30/25 22:56:
I saw and examined the patient.
The PA's note was reviewed and I agree with the note.
Comment:
59 year old with h/o NIDDM, GERD, HTN, MS, prior RYGB in 2010, and recent subtotal cholecystectomy who p/w concern for bile leak. She was recently admitted from 07/20-07/24 with cholecystitis without choledocholithiasis and was taken to OR on 07/22
with concern for gangrenous cholecystitis; completed lap subtotal cholecystectomy with suture ligation of the cystic duct. She noticed bilious output from her NITZA drain starting from about 3 days ago and was advised to come to ER. CT on admission
showed continued small enhancing fluid collection suspicious for biloma vs small abscess. Given the bilious NITZA drain output and CT finding, I suspect likely bile leak from recent subtotal cholecystectomy. She has altered anatomy from her previous
RYGB. There are 3 endoscopic options for intervention - DBE assisted ERCP which has approximately 50-60% success rate and will need to be transferred to [facility] for this, laparoscopy-assisted ERCP which requires surgical port access to the excluded
portion of stomach, and EDGE procedure (EUS-directed transgastric ERCP). All 3 options were discussed with the patient. She was agreeable to EDGE. Plan for EUS / ERCP on 08/01.
Original Note:
Consultation
-
Date/Time Consultation Requested: 07/29/25 1545
Date/Time Consultation Performed: 07/30/25 0700
Requesting Provider: DORIAN Berry
Performing Provider: DORIAN Luo, Adams Song MD
Reason for Consultation: abnormal imaging
Medical History
Chief Complaint / HPI
History of Present Illness:
Pt is a 59yo with hx NIDDM, GERD, HTN, MS, chronic pain, anxiety, bipolar disorder, schizophrenia, prior gastric bypass 2010 with kody en Y, and recent subtotal anitra in setting of Mounjaro use with 50 lbs wt loss. In review of records pt with
recent admission 07/20-07/24 with abdominal pain, vomiting and diarrhea. She was noted with leukocytosis, fever and tachycardia. MRCP was completed with concern for cholecystitis without choledocholithiasis. She was taken to OP 07/22 with concern
for gangrenous cholecystitis and intra abdominal abscess with completed lap subtotal anitra with suture ligation of the cystic duct with cholangiogram and drainage of abscess with NITZA in place. She was discharged with course of antibiotics . She
now return with initial serous sanguinous drainage in NITZA then bile. CT on admission with prior anitra, stranding in GB fossa with continued fluid possible residual gallbladder vs biloma. There is extension of fluid in GB from GB fossa with
collection 1 x 0.8cm small abscess vs biloma. Also noted prior Kody en Y and small HH and large exophytic cyst lower pole of right kidney 14.1 cm with mass effect.
At this time she admits to hx dysphagia with recent worsening symptoms. She is followed by Dr. Sohan Hanna and due for what sound like esophageal dilation. She admits to food sticking on a regular basis. She also admits to GERD on
Omeprazole daily, nausea without vomiting, and abdominal pain 03/24. Since surgery she has had loose stools dark brown and dark urine 07/29 that has improved. She otherwise denies odynophagia, constipation, blood or black in stools. Last EGD
without last 3 months and colonoscopy within last year. Did not recall details. No NSAID or anticoagulation use.
Past Medical History
Past Medical History: GERD, HTN, NIDDM, Psychiatric (anxiety, bipolar disorder, schizophenia) and Other (MS, lower back pain, chronic pain )
Past Surgical History: Cholecystectomy and Other (gastric bypass )
Social History
Tobacco: Non-Smoker
Alcohol: None
Drug: None
Personal:
Living: With Family
Employment: Retired
Family History
Family History: Other (no family hx GI issues)
Allergies / Home Medications
Allergy/AdvReac Type Severity Reaction Status Date / Time
ibuprofen Allergy Unknown Verified 07/29/25 10:52
Penicillins Allergy Unknown Verified 07/29/25 10:52
�Medication �Instructions �Recorded
cyanocobalamin (vitamin B-12) 1,000 mcg PO DAILY Supplement 07/20/25
1,000 mcg tablet
hydroxyzine pamoate 50 mg capsule 50 mg PO TID Mental Health/Anxiety 07/20/25
Held on 07/24/25.
Instructions: Resume on
07/28/25.
melatonin 10 mg tablet 10 mg PO HSPRN PRN sleep 07/20/25
therapeutic multivitamin 1 tab PO DAILY Supplement 07/20/25
tirzepatide 7.5 mg/0.5 mL 7.5 mg SC SA weight management 07/20/25
subcutaneous pen injector
(Mounjaro)
zolpidem 10 mg tablet (Ambien) 10 mg PO HSPRN PRN sleep 07/20/25
amitriptyline 10 mg tablet 10 mg PO HS depression/sleep 07/21/25
etodolac 400 mg tablet 400 mg PO BID Anti-Inflammatory 07/21/25
fluoxetine 40 mg capsule 40 mg PO DAILY depression/anxiety 07/21/25
lorazepam 0.5 mg tablet 0.5 mg PO DAILYPRN PRN anxiety 07/21/25
pregabalin 150 mg capsule 150 mg PO BID Pain 07/21/25
trazodone 100 mg tablet 100 mg PO HS depression/sleep 07/21/25
Held on 07/24/25.
Instructions: Resume on
07/28/25.
omeprazole 40 mg capsule,delayed 40 mg PO DAILY Gastrointestinal 07/29/25
release Issue
oxycodone 5 mg tablet 5 mg PO Q6HPRN PRN severe pain 07/29/25
Review of Systems
-
History Source: Patient and Family
Constitutional: Reports Weight Loss (50 lb with mounjaro) and Fatigue
EENT: Reports No Symptoms
Respiratory: Reports No Symptoms
Cardiac: Reports No Symptoms
Abdomen/GI: Reports Abdominal Pain, Nausea and Diarrhea
: Reports Dark Urine
Musculoskeletal: Reports No Symptoms
Skin: Reports No Symptoms
Neurological: Reports Weakness
Endocrine: Reports No Symptoms
Hematologic/Lymphatic: Reports No Symptoms
Vital Signs
Temp Pulse Resp BP Pulse Ox
98.6 F 85 18 129/72 97
07/29/25 23:00 07/29/25 23:00 07/29/25 23:00 07/29/25 23:00 07/29/25 23:00
Physical Exam
Exam
General: Well Developed, Well Nourished and No Apparent Distress
HEENT: Normocephalic and Anicteric
Respiratory: Clear
Cardiac: Regular Rhythm
GI: Soft, Non Distended, Tender (epigastric ) and Other (anitra incisions intact )
Musculoskeletal: No Clubbing and No Cyanosis
Skin: Warm and Dry
Neuro: Awake, Alert and AO x 3
Psych: Calm
Results
WBC 10.9 10^3/uL (4.8-10.8) H 07/29/25 14:
Hgb 11.9 g/dL (12.0-16.0) L 07/29/25 14:26
Hct 36.5 % (37.0-47.0) L 07/29/25 14:
MCV 84.1 fL (81.0-99.0) 07/29/25 14:
Plt Count 532 10^3/uL (130-400) H D 07/29/25 14:26
Absolute Neuts (auto) 8.2 10^3/uL (1.4-6.5) H 07/29/25 14:
Sodium 134 mmol/L (135-145) L 07/29/25 14:26
Potassium 3.7 mmol/L (3.5-5.1) 07/29/25 14:
Chloride 100 mmol/L (98-107) 07/29/25 14:26
Carbon Dioxide 24 mmol/L (22-30) 07/29/25 14:26
BUN 7 mg/dl (7-17) 07/29/25 14:26
Creatinine 0.5 mg/dL (0.6-1.0) L 07/29/25 14:26
Calcium 8.7 mg/dl (8.4-10.2) 07/29/25 14:26
Total Bilirubin 0.5 mg/dl (0.2-1.3) 07/29/25 14:26
AST 24 U/L (14-36) 07/29/25 14:26
ALT 28 U/L (0-35) 07/29/25 14:26
Alkaline Phosphatase 97 U/L (38-126) 07/29/25 14:26
Lipase 143 U/L (23-300) 07/29/25 14:26
Diagnostic Image Results:
07/29/25 CT Abd/pelvis W Iv Cont
Changes of prior cholecystectomy. There is expected postoperative stranding within the gallbladder fossa, however there is continued fluid within the gallbladder fossa which may represent residual gallbladder or a possible biloma. Extending
inferiorly from the fluid in the gallbladder fossa is a small peripherally enhancing collection measuring 1.0 x 0.8 cm which may represent a small abscess or biloma. This extends just posterior to the hepatic flexure.
Prior Kody-en-Y gastric bypass with a small hiatal hernia.
Right greater than left bibasilar atelectasis.
Large exophytic cyst along the lower pole the right kidney measuring up to 14.1 cm with associated mass effect.
07/20/25 US abdomen
Cholelithiasis/sludge, gallbladder wall thickening, trace pericholecystic fluid, and a reportedly positive sonographic Jimenez's sign. Sonographic findings are considered suspicious for acute cholecystitis.
Mild extrahepatic bile duct dilatation.
07/21/25 MR Mrcp Without
No MRCP evidence for choledocholithiasis.
Acute cholecystitis.
Renal cysts including a very large right lower pole cyst.
Prior GI Procedures:
EGD recent with Dr. Sohan Hanna
Colonoscopy: 2009 [facility] - Non-thrombosed external hemorrhoids.
- Nodular ileal mucosa. This was biopsied.
- One 5 mm polyp in the transverse colon. Resected and
retrieved.
- Many 1 to 3 mm polyps in the rectum (benign
appearing). Resected and retrieved.
- Internal hemorrhoids.
Assessment / Plan
-
Pt is a 59yo with hx NIDDM, GERD, HTN, MS, chronic pain, anxiety, bipolar disorder, schizophrenia, prior gastric bypass 2010 with kody en Y, and recent subtotal anitra in setting of Mounjaro use with 50 lbs wt loss. In review of records pt with
recent admission 07/20-07/24 with abdominal pain, vomiting and diarrhea. She was noted with leukocytosis, fever and tachycardia. MRCP was completed with concern for cholecystitis without choledocholithiasis. She was taken to OP 07/22 with concern
for gangrenous cholecystitis and intra abdominal abscess with completed lap subtotal anitra with suture ligation of the cystic duct with cholangiogram and drainage of abscess with NITZA in place. She was discharged with course of antibiotics . She
now return with initial serous sanguinous drainage in NITZA then bile. CT on admission with prior anitra, stranding in GB fossa with continued fluid possible residual gallbladder vs biloma. There is extension of fluid in GB from GB fossa with
collection 1 x 0.8cm small abscess vs biloma. Also noted prior Kody en Y and small HH and large exophytic cyst lower pole of right kidney 14.1 cm with mass effect. At this time she admits to hx dysphagia followed by Dr. Sohan Hanna and
due for what sound like esophageal dilation with recent EGD completed. She also admits to GERD on Omeprazole daily, nausea without vomiting, and abdominal pain 03/24. Since surgery she has had loose stools dark brown and dark urine 07/29 that has
improved. Last EGD without last 3 months and colonoscopy within last year. Did not recall details. No NSAID or anticoagulation use.
-s/p subtotal anitra 07/22 for gangrenous gallbladder with drainage of intra abdominal abscess placement of NITZA with concern for bile leak
-hx Kody en y bypass 2010
-dysphagia with recent EGD and follow up with Dr. Sohan Hanna and due for what sound like esophageal dilation
-wt loss with recent Mounjaro use
-large renal cyst 14.1 cm
-hyponatremia
-coagulopathy
-mild anemia
-thrombocytosis
other med problems:
NIDDM, GERD, HTN, MS, chronic pain, anxiety, bipolar disorder, schizophrenia
PLAN:
Reviewed with patient, daughter and Dr. Jesús quintana with hx Kody en Y bypass and concern for bile leak
pt and daughter would like to review with Dr. York for input for stenting
pt remains with NITZA in place at this time with continued bilious drainage with 40ml overnight
Pt with recent bariatric surgical eval with dysphagia and due for ? dilation vs other -will obtain records from Dr. Sohan Hanna reviewed with nursing to call today
NPO til I review timing with Dr. York ok for diet from surgical standpoint if not proceeding today
no further loose stool recorded since admission without fever or WBC will hold on stool studies
LFT's and lipase remain normal
cont abx - Rocephin and Flagyl
Pt with mild INR elevation 1.56 on 07/21 will repeat this am
daughter updated all questions answered
-
-
Thank you for consultation and allowing me to participate in the patient's care. Please call the airborne electronics analyst GI physician during the after hours with any questions or concerns.
[2025-07-30 07:00] VITALS: BP 118/68
[2025-07-30 07:28] LABS: Hematocrit 31.4 % (37.0-47.0); Hemoglobin 10.6 g/dL (12.0-16.0); Mean Corp Hgb Conc. 33.8 g/dL (33.0-37.0); Mean Corpuscular Volume 82.6 fL (81.0-99.0); Platelet Count 450 10^3/uL (130-400); Red Cell Dist. Width 14.6 % (11.5-14.5)
[2025-07-30 07:51] LABS: Blood Urea Nitrogen 3 mg/dl (7-17); Calcium 8.2 mg/dl (8.4-10.2); Carbon Dioxide 24 mmol/L (22-30); Chloride 102 mmol/L (98-107); Estimated Creatinine Clearance 97 ml/min; Glucose 68 mg/dl (70-99); Potassium 3.5 mmol/L (3.5-5.1); Sodium 133 mmol/L (135-145); eGFR > 60.00
--- NOTE | 2025-07-30 08:27 | VNURNOTE ---
Addendum entered by Yasmine Damon RN 08/05/25 12:08:
[facility] referral accepted in [facility].
Original Note:
Chart reviewed. Patient is current with [facility]. Will continue to follow hospital course and DC plans.
[2025-07-30 08:41] LABS: Glucose - Point of Care 68 mg/dl (70-99)
[2025-07-30 08:52] LABS: Glycohemoglobin (HgbA1c) 5.2 % (4.0-5.9)
[2025-07-30] MEDS: DEXTROSE 50% SYRINGE 12.5 GRAMS IV (08:53)
[2025-07-30] MEDS: ATARAX 50 MG PO ×3 (08:57→21:38)
[2025-07-30] MEDS: PROZAC 40 MG PO (08:57)
[2025-07-30] MEDS: LYRICA 150 MG PO ×2 (08:57→19:57)
[2025-07-30] MEDS: VITAMIN B-12 1000 MCG PO (08:57)
[2025-07-30] MEDS: PROTONIX 40 MG PO (08:57)
[2025-07-30] MEDS: D5/0.9% SODIUM CHLORIDE 1000 IV ×2 (08:58→21:38)
[2025-07-30] MEDS: FLAGYL 500 MG 100 IV ×2 (09:01→21:38)
[2025-07-30 09:36] LABS: Glucose - Point of Care 130 mg/dl (70-99)
[2025-07-30 10:01] LABS: INR 1.27; PT 16.1 Sec (11.4-14.6)
--- NOTE | 2025-07-30 10:13 | W.PN.GS2 ---
Today's Communication / Plan
-
CT scan findings reviewed with patient and daughter over the phone.
Okay to feed pending GI recs.
Assessment / Plan
-
This is a 59-year-old female with a history of a laparoscopic Rachel-en-Y gastric bypass who presented last week with gangrenous cholecystitis status post laparoscopic subtotal cholecystectomy with cholangiogram and suture ligation of the cystic duct
with apparent cystic duct stump leak, currently managed with her surgical drain.
No acute surgical intervention warranted.
GI consulted to discuss management approaches. Dr. York will review.
If no GI intervention planned today, okay for regular diet.
Continue antibiotics empirically.
Trend CMP, CBC
General Surgery will follow
Time Spent
Total Time Spent with Patient (in minutes): 20
Subjective Data
-
Date of Service: July 30, 2025
Interval Events:
No acute events overnight. Slept well. Pain Controlled. Patient in good spirits. Denies Nausea/Vomiting, +bowel function.
Objective Data
-
Intake and Output
07/29/25 07/30/25 07/31/25
06:59 06:59 06:59
Intake Total 360 / 360
Output Total 40 / 40
Balance 320 / 320
Intake:
Oral fluids 360 / 360
Output:
Drain Output (Total) 40 / 40
Right Tristan-Fisher 40 / 40
Other:
Number of approximated MODERATE 2
amounts of urine
Vital Signs
Temp Pulse Resp BP Pulse Ox
98.2 F 77 20 118/68 96
07/30/25 07:00 07/30/25 07:00 07/30/25 07:00 07/30/25 07:00 07/30/25 07:00
Lab Results
07/30/25 06:45
07/30/25 06:45
Calcium 8.2 mg/dl (8.4-10.2) L 07/30/25 06:45
Total Bilirubin 0.5 mg/dl (0.2-1.3) 07/29/25 14:26
AST 24 U/L (14-36) 07/29/25 14:26
ALT 28 U/L (0-35) 07/29/25 14:26
Alkaline Phosphatase 97 U/L (38-126) 07/29/25 14:26
Total Protein 6.6 g/dl (6.3-8.2) 07/29/25 14:26
Albumin 3.2 g/dl (3.5-5.0) L 07/29/25 14:26
Physical Exam
-
GENERAL/NEURO: Awake, Alert, no distress
CHEST: Unlabored breathing on RA
ABDOMEN: Soft, Non-Tender, Non-Distended, incisions clean dry and intact. NITZA with bilious output.
Patient has a hickman catheter: No
Patient has a central line: No
[2025-07-30 11:31] LABS: Glucose - Point of Care 86 mg/dl (70-99)
--- NOTE | 2025-07-30 12:23 | W.PN.HOSP.TC ---
Today's Communication/Plan
-
Monitor vital signs see plan
cw empiric abx
N.p.o. for now, diet per GI
GI and general surgery following
Assessment / Plan
Assessment / Plan
General: Well Developed, Well Nourished and No Apparent Distress
HEENT: NormoCephalic, Moist mucous membranes and Atraumatic
Respiratory: Clear
Cardiac: S1/S2 and Regular Rhythm; No Murmur or Rub
GI: Soft, Non Tender, Non Distended and Normal Bowel Sounds,+sutures,drain
Musculoskeletal: No Edema
Neuro: AO x 3 and Nonfocal/grossly intact
Psych: Calm
abdominal pain likely post surgical abscess vs biloma
Concern for cystic duct stump leak
#s/p Laparoscopic subtotal cholecystectomy with cholangiogram & Drainage of an intra-abdominal abscess (07/22)
-surgery following
GI following
-cw IV ceftriaxone and Flagyl
-GI consulted
NPO; diet per GI
-dilaudid prn for pain
-CT abdomen pelvis with Changes of prior cholecystectomy. There is expected postoperative stranding within the gallbladder fossa, however there is continued fluid within the gallbladder fossa which may represent residual gallbladder or a possible
biloma. Extending inferiorly from the fluid in the gallbladder fossa is a small peripherally enhancing collection measuring 1.0 x 0.8 cm which may represent a small abscess or biloma. This extends just posterior to the hepatic flexure.Prior
Rachel-en-Y gastric bypass with a small hiatal hernia.Right greater than left bibasilar atelectasis.Large exophytic cyst along the lower pole the right kidney measuring up to 14.1 cm with associated mass effect.
Hypoglycemia, continue with D5. Accu-Cheks.
A1c 5.2
Large renal cyst
Monitor
Hyponatremia
Monitor
hx Rachel en y bypass 2010
-dysphagia with recent EGD and follow up with Dr. Sohan Hanna and due for what sound like esophageal dilation
-wt loss with recent Mounjaro use
#GERD
Continue PPI
#bipolar, schizophrenia, MS, chronic back pain
-amitriptyline,fluoxetine, hydroxyzine, lorazepam,melatonin continued
Insomnia
Ambien
#DVT prophylaxis
-scd, pharmacological prophylaxis when okay with GI and surgery
#CODE status
-full code
Anticipated Discharge: > 48 hours
Subjective/Interval History
-
Date of Service: July 30, 2025
has nausea and pain
Objective Data
-
Labs:
Laboratory Results
07/30/25 07/30/25
06:45 09:28
WBC 8.3
Hgb 10.6 L
Hct 31.4 L
Plt Count 450 H
PT 16.1 H
INR 1.27
Sodium 133 L
Potassium 3.5
Chloride 102
Carbon Dioxide 24
BUN 3 L
Creatinine 0.5 L
Glucose 68 L
Calcium 8.2 L
Vital Signs:
Vital Signs
Temp Pulse Resp BP Pulse Ox
98.2 F 77 20 118/68 96
07/30/25 07:00 07/30/25 07:00 07/30/25 07:00 07/30/25 07:00 07/30/25 07:00
I&O
07/29/25 07/30/25 07/31/25
06:59 06:59 06:59
Intake Total 360 / 360
Output Total 40 / 40
Balance 320 / 320
[2025-07-30] MEDS: ZOFRAN 4 MG IV (12:27)
[2025-07-30 13:54] LABS: Glucose - Point of Care 95 mg/dl (70-99)
--- NOTE | 2025-07-30 14:09 | CM ---
Initial assessment completed with patient who lives with her (in process of separation) in a 1 floor condo on 2nd floor with 6 steps to enter. 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 She does drive. No other DME.
Is currently on service with [facility] RN for drain care. No HC-POA. No VA benefits. No psychiatric hospitalizations. Does have history of anxiety, bipolar and schizophrenia. Admits to being forgetful due to the medication she is on. Discharge POC:
Anticipate home with resumption of [facility] RN services. Referral placed.
[2025-07-30 15:00] VITALS: BP 120/71
[2025-07-30 17:24] LABS: Glucose - Point of Care 103 mg/dl (70-99)
[2025-07-30] MEDS: DESYREL 100 MG PO (21:38)
[2025-07-30] MEDS: ELAVIL 10 MG PO (21:38)
[2025-07-30] MEDS: AMBIEN 10 MG PO (21:38)
[2025-07-30 21:39] LABS: Glucose - Point of Care 104 mg/dl (70-99)
[2025-07-30] MEDS: STERILE WATER FOR INJECTION 10 ML IV (22:53)
[2025-07-30] MEDS: ROCEPHIN 1000 MG IV (22:54)
[2025-07-30 23:23] VITALS: BP 117/62
[2025-07-31 03:06] LABS: Glucose - Point of Care 94 mg/dl (70-99)
[2025-07-31 03:55] VITALS: BP 116/73
[2025-07-31] MEDS: DILAUDID 0.5 MG IV ×3 (05:31→17:22)
[2025-07-31 07:00] VITALS: BP 120/71
[2025-07-31 08:06] LABS: Glucose - Point of Care 104 mg/dl (70-99)
[2025-07-31] MEDS: ATARAX 50 MG PO ×3 (08:38→21:13)
[2025-07-31] MEDS: PROZAC 40 MG PO (08:38)
[2025-07-31] MEDS: LYRICA 150 MG PO ×2 (08:38→19:55)
[2025-07-31] MEDS: VITAMIN B-12 1000 MCG PO (08:38)
[2025-07-31] MEDS: PROTONIX 40 MG PO (08:38)
[2025-07-31 08:53] LABS: Hematocrit 31.5 % (37.0-47.0); Hemoglobin 10.7 g/dL (12.0-16.0); Mean Corp Hgb Conc. 34.0 g/dL (33.0-37.0); Mean Corpuscular Volume 83.3 fL (81.0-99.0); Platelet Count 451 10^3/uL (130-400); Red Cell Dist. Width 14.6 % (11.5-14.5)
--- NOTE | 2025-07-31 09:56 | W.PN.GS2 ---
Today's Communication / Plan
-
For EDGE ERCP with GI tomorrow
Assessment / Plan
-
This is a 59-year-old female with a history of a laparoscopic Rachel-en-Y gastric bypass who presented last week with gangrenous cholecystitis status post laparoscopic subtotal cholecystectomy with cholangiogram and suture ligation of the cystic duct
with apparent cystic duct stump leak, currently managed with her surgical drain.
No acute surgical intervention warranted.
GI tentatively plans EDGE ERCP tomorrow.
NPO@MN
Continue antibiotics empirically.
Trend CMP, CBC
General Surgery will follow
Subjective Data
-
Date of Service: July 31, 2025
AFVSS, abd pain controlled, lorenza PO, denies n/v
Objective Data
-
Intake and Output
07/30/25 07/31/25 08/01/25
06:59 06:59 06:59
Intake Total 360 / 360 1380 / 1380
Output Total 40 / 40 95 / 95
Balance 320 / 320 1285 / 1285
Intake:
Oral fluids 360 / 360 1380 / 1380
Output:
Drain Output (Total) 40 / 40 95 / 95
Right Tristan-Fisher 40 / 40 95 / 95
Other:
Number of approximated MODERATE 2 2
amounts of urine
Vital Signs
Temp Pulse Resp BP Pulse Ox
97.9 F 70 20 120/71 94
07/31/25 07:00 07/31/25 07:00 07/31/25 07:00 07/31/25 07:00 07/31/25 07:00
Lab Results
07/31/25 07:28
Calcium 8.2 mg/dl (8.4-10.2) L 07/30/25 06:45
Total Bilirubin 0.5 mg/dl (0.2-1.3) 07/29/25 14:26
AST 24 U/L (14-36) 07/29/25 14:26
ALT 28 U/L (0-35) 07/29/25 14:26
Alkaline Phosphatase 97 U/L (38-126) 07/29/25 14:26
Total Protein 6.6 g/dl (6.3-8.2) 07/29/25 14:26
Albumin 3.2 g/dl (3.5-5.0) L 07/29/25 14:26
Physical Exam
-
Gen: NAD
Abd: soft, approp ttp, drain bilious
Patient has a hickman catheter: No
Patient has a central line: No
[2025-07-31 10:17] LABS: ALT (SGPT) 17 U/L (0-35); AST (SGOT) 18 U/L (14-36); Albumin 2.6 g/dl (3.5-5.0); Alkaline Phosphatase 76 U/L (38-126); Blood Urea Nitrogen < 2 mg/dl (7-17); Calcium 8.3 mg/dl (8.4-10.2); Carbon Dioxide 27 mmol/L (22-30); Chloride 103 mmol/L (98-107); Estimated Creatinine Clearance 97 ml/min; Glucose 93 mg/dl (70-99); Potassium 3.2 mmol/L (3.5-5.1); Sodium 136 mmol/L (135-145); Total Protein 5.7 g/dl (6.3-8.2); eGFR > 60.00
[2025-07-31] MEDS: FLAGYL 500 MG 100 IV ×2 (10:49→21:13)
--- NOTE | 2025-07-31 11:22 | W.PN.GI.CBS2 ---
Addendum entered and electronically signed by Adams Song MD 07/31/25 14:11:
I saw and examined the patient.
The TOOL REPAIRER BENCH or PA's note was reviewed and I agree with the note.
Comment: LLQ pain, no significant changes. Bile in NITZA drain
ABD soft mild tender, NITZA drain with bilious fluid
Reviewed records from bariatric surgeon Dr Parry from Apr- He reviewed recent EGD confirmed nondysplastic barretts. Eval in [address] showed entire pouch in chest, UGI 2022 showed hiatal hernia and significant reflux. He was discussing
repair of hiatal hernia.
REC:
Proceed with EDGE procedure for access to place biliary drain to treat bile leak tomorrow
Cont abx, NPO p MN. WBC 7.3.
LFTs normal
Original Note:
Today's Communication / Plan
-
Dr. York reviewed options for patient DBE assisted ERCP which has approximately 50-60% success rate and will need to be transferred to [place] for this, laparoscopy-assisted ERCP which requires surgical port access to the excluded portion of stomach,
and EDGE procedure (EUS-directed transgastric ERCP). All 3 options were discussed with the patient. She continues to be agreeable to EDGE and plan to completed 08/01
still awaiting records from Dr. Parry Antbelinda bariatric surgeon ? due for OP dilation -- asked staff to call again today as OP work up with dysphagia with bariatric surgery team
she has current left upper abdominal pain after eating and feeling of constipation
will add miralax regiment
continue diet then NPO in AM
cont to follow NITZA output
repeat INR stable 1.27
cont abx - Rocephin and Flagyl
updated family 07/30
Assessment / Plan
-
Pt is a 59yo with hx NIDDM, GERD, HTN, MS, chronic pain, anxiety, bipolar disorder, schizophrenia, prior gastric bypass 2010 with kody en Y, and recent subtotal anitra in setting of Mounjaro use with 50 lbs wt loss. In review of records pt with
recent admission 07/20-07/24 with abdominal pain, vomiting and diarrhea. She was noted with leukocytosis, fever and tachycardia. MRCP was completed with concern for cholecystitis without choledocholithiasis. She was taken to OP 07/22 with concern
for gangrenous cholecystitis and intra abdominal abscess with completed lap subtotal anirta with suture ligation of the cystic duct with cholangiogram and drainage of abscess with NITZA in place. She was discharged with course of antibiotics . She
now return with initial serous sanguinous drainage in NITZA then bile. CT on admission with prior anitra, stranding in GB fossa with continued fluid possible residual gallbladder vs biloma. There is extension of fluid in GB from GB fossa with
collection 1 x 0.8cm small abscess vs biloma. Also noted prior Kody en Y and small HH and large exophytic cyst lower pole of right kidney 14.1 cm with mass effect. At this time she admits to hx dysphagia followed by Dr. Sohan Hanna and
due for what sound like esophageal dilation with recent EGD completed. She also admits to GERD on Omeprazole daily, nausea without vomiting, and abdominal pain 03/24. Since surgery she has had loose stools dark brown and dark urine 07/29 that has
improved. Last EGD without last 3 months and colonoscopy within last year. Did not recall details. No NSAID or anticoagulation use.
-s/p subtotal anitra 07/22 for gangrenous gallbladder with drainage of intra abdominal abscess placement of NITZA with concern for bile leak
-hx Kody en y bypass 2010
-dysphagia with recent EGD and follow up with Dr. Sohan Hanna and due for what sound like esophageal dilation
-wt loss with recent Mounjaro use
-left sided pain with constipation
-large renal cyst 14.1 cm
-hyponatremia
-coagulopathy
-mild anemia
-thrombocytosis
other med problems:
NIDDM, GERD, HTN, MS, chronic pain, anxiety, bipolar disorder, schizophrenia
PLAN:
Dr. York reviewed options for patient DBE assisted ERCP which has approximately 50-60% success rate and will need to be transferred to [place] for this, laparoscopy-assisted ERCP which requires surgical port access to the excluded portion of stomach,
and EDGE procedure (EUS-directed transgastric ERCP). All 3 options were discussed with the patient. She continues to be agreeable to EDGE and plan to completed 08/01
still awaiting records from Dr. Sohan Hanna bariatric surgeon ? due for OP dilation -- asked staff to call again today as OP work up with dysphagia with bariatric surgery team
she has current left upper abdominal pain after eating and feeling of constipation
will add miralax regiment
continue diet then NPO in AM
cont to follow NITZA output
repeat INR stable 1.27
cont abx - Rocephin and Flagyl
updated family 07/30
Subjective
Subjective
Date of Service: July 31, 2025
on ADA diet, no stools now with some left sided pain after eating and feeling of constipation
Objective
Data Reviewed
Laboratory Data:
Laboratory Results
07/31/25 07:28
07/31/25 07:28
Laboratory Results
PT 16.1 Sec (11.4-14.6) H 07/30/25 09:28
INR 1.27 07/30/25 09:28
Total Bilirubin 0.4 mg/dl (0.2-1.3) 07/31/25 07:28
AST 18 U/L (14-36) 07/31/25 07:28
ALT 17 U/L (0-35) 07/31/25 07:28
Alkaline Phosphatase 76 U/L (38-126) 07/31/25 07:28
Lipase 143 U/L (23-300) 07/29/25 14:26
Vital Signs and I&O:
Vital Signs
Temp Pulse Resp BP Pulse Ox
97.9 F 70 20 120/71 94
07/31/25 07:00 07/31/25 07:00 07/31/25 07:00 07/31/25 07:00 07/31/25 07:00
I&O
07/30/25 07/31/25 08/01/25
06:59 06:59 06:59
Intake Total 360 / 360 1380 / 1380
Output Total 40 / 40 95 / 95
Balance 320 / 320 1285 / 1285
Physical Exam
Physical Exam
HEENT: Anicteric and Moist mucous membranes
Cardiology: Normal Sinus Rhythm
Pulmonary: Clear
GI: Soft, Non Distended, Tender (left upper quadrant ) and Other (NITZA drain with bilious drainage)
Extremities: No Edema
Neuro: Non Focal
[2025-07-31 12:16] LABS: Glucose - Point of Care 113 mg/dl (70-99)
--- NOTE | 2025-07-31 12:30 | W.PN.HOSP.TC ---
Today's Communication/Plan
-
Monitor vital signs and see plan
Plan for EDGE ERCP tomorrow
cw abx
monitor drain
Assessment / Plan
Assessment / Plan
General: Well Developed, Well Nourished and No Apparent Distress
HEENT: NormoCephalic, Moist mucous membranes and Atraumatic
Respiratory: Clear
Cardiac: S1/S2 and Regular Rhythm; No Murmur or Rub
GI: Soft, Non Tender, Non Distended and Normal Bowel Sounds,+sutures,drain
Musculoskeletal: No Edema
Neuro: AO x 3 and Nonfocal/grossly intact
Psych: Calm
abdominal pain likely post surgical abscess vs biloma
Concern for cystic duct stump leak
#s/p Laparoscopic subtotal cholecystectomy with cholangiogram & Drainage of an intra-abdominal abscess (07/22)
-surgery following. Drain with serosanguineous drainage
GI following
-cw IV ceftriaxone and Flagyl
-GI following. Plan for EDGE ERCP 08/01 due to hx of gastric bypass
diet per GI
-dilaudid prn for pain
-CT abdomen pelvis with Changes of prior cholecystectomy. There is expected postoperative stranding within the gallbladder fossa, however there is continued fluid within the gallbladder fossa which may represent residual gallbladder or a possible
biloma. Extending inferiorly from the fluid in the gallbladder fossa is a small peripherally enhancing collection measuring 1.0 x 0.8 cm which may represent a small abscess or biloma. This extends just posterior to the hepatic flexure.Prior
Rachel-en-Y gastric bypass with a small hiatal hernia.Right greater than left bibasilar atelectasis.Large exophytic cyst along the lower pole the right kidney measuring up to 14.1 cm with associated mass effect.
Hypoglycemia, continue with D5. Accu-Cheks.
A1c 5.2
Large renal cyst
Monitor
Hyponatremia
Monitor
Hypokalemia
replete
hx Rachel en y bypass 2010
-dysphagia with recent EGD and follow up with Dr. Sohan Hanna and due for what sound like esophageal dilation
-wt loss with recent Mounjaro use
#GERD
Continue PPI
#bipolar, schizophrenia, MS, chronic back pain
-amitriptyline,fluoxetine, hydroxyzine, lorazepam,melatonin continued
Insomnia
Ambien
#DVT prophylaxis
-scd, pharmacological prophylaxis when okay with GI and surgery
#CODE status
-full code
Anticipated Discharge: 24 - 48 hours
Subjective/Interval History
-
Date of Service: July 31, 2025
denies vomiting but does have intermittent nausea
Objective Data
-
Labs:
Laboratory Results
07/31/25
07:28
WBC 7.3
Hgb 10.7 L
Hct 31.5 L
Plt Count 451 H
Sodium 136
Potassium 3.2 L
Chloride 103
Carbon Dioxide 27
BUN < 2 L
Creatinine 0.5 L
Glucose 93
Calcium 8.3 L
Total Bilirubin 0.4
AST 18
ALT 17
Alkaline Phosphatase 76
Vital Signs:
Vital Signs
Temp Pulse Resp BP Pulse Ox
97.9 F 70 20 120/71 94
07/31/25 07:00 07/31/25 07:00 07/31/25 07:00 07/31/25 07:00 07/31/25 07:00
I&O
07/30/25 07/31/25 08/01/25
06:59 06:59 06:59
Intake Total 360 / 360 1380 / 1380
Output Total 40 / 40 95 / 95
Balance 320 / 320 1285 / 1285
[2025-07-31] MEDS: KCL 40 MEQ PO (12:34)
[2025-07-31] MEDS: MIRALAX 34 GRAMS PO (12:36)
[2025-07-31 15:40] VITALS: BP 112/70
--- NOTE | 2025-07-31 17:04 | CM ---
ERCP on 08/01/25, monitor drain output. Discharge POC: Anticipate home with resumption of [facility] RN services. Referral previously placed.
[2025-07-31 17:14] LABS: Glucose - Point of Care 80 mg/dl (70-99)
[2025-07-31] MEDS: DESYREL 100 MG PO (21:13)
[2025-07-31] MEDS: ELAVIL 10 MG PO (21:13)
[2025-07-31] MEDS: AMBIEN 10 MG PO (21:13)
[2025-07-31 21:21] LABS: Glucose - Point of Care 84 mg/dl (70-99)
[2025-07-31] MEDS: ROCEPHIN 1000 MG IV (22:21)
[2025-07-31] MEDS: STERILE WATER FOR INJECTION 10 ML IV (22:22)
[2025-07-31 23:20] VITALS: BP 133/73
[2025-08-01] VITALS (14 sets, daily range): BP systolic 40–124; BP diastolic 53–76
[2025-08-01 08:32] LABS: Glucose - Point of Care 94 mg/dl (70-99)
[2025-08-01 08:33] LABS: Hematocrit 36.6 % (37.0-47.0); Hemoglobin 12.2 g/dL (12.0-16.0); Mean Corp Hgb Conc. 33.3 g/dL (33.0-37.0); Mean Corpuscular Volume 82.6 fL (81.0-99.0); Platelet Count 441 10^3/uL (130-400); Red Cell Dist. Width 14.7 % (11.5-14.5)
[2025-08-01] MEDS: PROTONIX 40 MG PO (09:02)
[2025-08-01] MEDS: FLAGYL 500 MG 100 IV ×2 (09:02→21:19)
[2025-08-01] MEDS: PROZAC 40 MG PO (09:02)
[2025-08-01] MEDS: ATARAX 50 MG PO ×2 (09:02→21:18)
[2025-08-01] MEDS: VITAMIN B-12 1000 MCG PO (09:02)
[2025-08-01] MEDS: LYRICA 150 MG PO ×2 (09:02→19:46)
[2025-08-01] MEDS: MIRALAX PO (09:04)
[2025-08-01] MEDS: DILAUDID 0.5 MG IV ×3 (09:16→19:43)
[2025-08-01] MEDS: ZOFRAN 4 MG IV (09:16)
--- NOTE | 2025-08-01 09:23 | W.PN.GS2 ---
Today's Communication / Plan
-
GI procedure today
Assessment / Plan
-
This is a 59-year-old female with a history of a laparoscopic Rachel-en-Y gastric bypass who presented last week with gangrenous cholecystitis status post laparoscopic subtotal cholecystectomy with cholangiogram and suture ligation of the cystic duct
with apparent cystic duct stump leak, currently managed with her surgical drain.
No acute surgical intervention warranted.
GI tentatively plans EDGE ERCP today
Diet per GI
Continue antibiotics empirically.
Trend CMP, CBC
General Surgery will follow
Time Spent
Total Time Spent with Patient (in minutes): 20
Subjective Data
-
Date of Service: August 01, 2025
Interval Events:
No acute events overnight. Slept okay. Some mild new left upper quadrant pain but severity mostly unchanged. Nervous about procedure today.
Objective Data
-
Intake and Output
07/31/25 08/01/25 08/02/25
06:59 06:59 06:59
Intake Total 1380 / 1380 815 / 815
Output Total 95 / 95 90 / 90
Balance 1285 / 1285 725 / 725
Intake:
Oral fluids 1380 / 1380 815 / 815
Output:
Drain Output (Total) 95 / 90 / 90
Right Tristan-Fisher 95 / 95 90 / 90
Other:
Number of approximated MODERATE 2 2
amounts of urine
Vital Signs
Temp Pulse Resp BP Pulse Ox
98.6 F 78 18 124/66 95
08/01/25 08:14 08/01/25 08:14 08/01/25 08:14 08/01/25 08:14 08/01/25 08:14
Lab Results
08/01/25 07:42
Calcium 8.3 mg/dl (8.4-10.2) L 07/31/25 07:28
Total Bilirubin 0.4 mg/dl (0.2-1.3) 07/31/25:
Direct Bilirubin 0.2 mg/dl (0.0-0.4) 07/31/25 07:
AST 18 U/L (14-36) 07/31/25 07:
ALT 17 U/L (0-35) 07/31/25:
Alkaline Phosphatase 76 U/L (38-126) 07/31/25 07:
Total Protein 5.7 g/dl (6.3-8.2) L 07/31/25 07:
Albumin 2.6 g/dl (3.5-5.0) L 07/31/25 07:28
Physical Exam
-
GENERAL/NEURO: Awake, Alert, no distress
CHEST: Unlabored breathing on RA
ABDOMEN: Soft, Non-Tender, Non-Distended, incisions clean dry and intact. Right upper quadrant drain bilious.
Patient has a hickman catheter: No
Patient has a central line: No
[2025-08-01 09:37] LABS: Blood Urea Nitrogen 3 mg/dl (7-17); Calcium 8.7 mg/dl (8.4-10.2); Carbon Dioxide 25 mmol/L (22-30); Chloride 103 mmol/L (98-107); Estimated Creatinine Clearance 97 ml/min; Glucose 74 mg/dl (70-99); Potassium 3.9 mmol/L (3.5-5.1); Sodium 137 mmol/L (135-145); eGFR > 60.00
--- NOTE | 2025-08-01 11:48 | W.PN.HOSP.TC ---
Today's Communication/Plan
-
Monitor vitals
See plan
Procedure by GI today
Continue antibiotic
Assessment / Plan
Assessment / Plan
General: Well Developed, Well Nourished and No Apparent Distress
HEENT: NormoCephalic, Moist mucous membranes and Atraumatic
Respiratory: Clear
Cardiac: S1/S2 and Regular Rhythm; No Murmur or Rub
GI: Soft, Non Tender, Non Distended and Normal Bowel Sounds,+sutures,drain
Musculoskeletal: No Edema
Neuro: AO x 3 and Nonfocal/grossly intact
Psych: Calm
abdominal pain likely post surgical abscess vs biloma
Concern for cystic duct stump leak
#s/p Laparoscopic subtotal cholecystectomy with cholangiogram & Drainage of an intra-abdominal abscess (07/22)
-surgery following. Drain with serosanguineous drainage
GI following
-cw IV ceftriaxone and Flagyl
-GI following. Plan for EDGE ERCP 08/01 due to hx of gastric bypass
diet per GI post OP
-dilaudid prn for pain
-CT abdomen pelvis with Changes of prior cholecystectomy. There is expected postoperative stranding within the gallbladder fossa, however there is continued fluid within the gallbladder fossa which may represent residual gallbladder or a possible
biloma. Extending inferiorly from the fluid in the gallbladder fossa is a small peripherally enhancing collection measuring 1.0 x 0.8 cm which may represent a small abscess or biloma. This extends just posterior to the hepatic flexure.Prior
Rachel-en-Y gastric bypass with a small hiatal hernia.Right greater than left bibasilar atelectasis.Large exophytic cyst along the lower pole the right kidney measuring up to 14.1 cm with associated mass effect.
Hypoglycemia, continue with D5. Accu-Cheks.
A1c 5.2
Large renal cyst
Monitor
Hyponatremia
Monitor
Hypokalemia
replete
hx Rachel en y bypass 2010
-dysphagia with recent EGD and follow up with Dr. Sohan Hanna and due for what sound like esophageal dilation
-wt loss with recent Mounjaro use
#GERD
Continue PPI
#bipolar, schizophrenia, MS, chronic back pain
-amitriptyline,fluoxetine, hydroxyzine, lorazepam,melatonin continued
Insomnia
Ambien
#DVT prophylaxis
-scd, pharmacological prophylaxis when okay with GI and surgery
#CODE status
-full code
Anticipated Discharge: 24 - 48 hours
Subjective/Interval History
-
Date of Service: August 01, 2025
Nausea
Objective Data
-
Labs:
Laboratory Results
08/01/25
07:42
WBC 8.1
Hgb 12.2
Hct 36.6 L
Plt Count 441 H
Sodium 137
Potassium 3.9
Chloride 103
Carbon Dioxide 25
BUN 3 L
Creatinine 0.5 L
Glucose 74
Calcium 8.7
Vital Signs:
Vital Signs
Temp Pulse Resp BP Pulse Ox
98.6 F 78 18 124/66 95
08/01/25 08:14 08/01/25 08:14 08/01/25 08:14 08/01/25 08:14 08/01/25 08:14
I&O
07/31/25 08/01/25 08/02/25
06:59 06:59 06:59
Intake Total 1380 / 1380 815 / 815
Output Total 95 / 95 90 / 90
Balance 1285 / 1285 725 / 725
[2025-08-01 12:08] LABS: Glucose - Point of Care 82 mg/dl (70-99)
[2025-08-01 18:27] LABS: Glucose - Point of Care 131 mg/dl (70-99)
[2025-08-01] MEDS: ATARAX PO (18:37)
--- NOTE | 2025-08-01 19:10 | PTCARENOTE ---
Pt transferred to unit from PACU via stretcher. Pt stood and pivoted from stretcher to unit bed with x 1 assist. Pt A & O x 3-- drowsy, but easily arousable. VSS-- TEMP. 98.0 F BP 105/63 HR 85 RR 16 O2 92% on 3L NC. Pt re-oriented to room. Call brewer
within reach. Daughter at bedside.
[2025-08-01] MEDS: ELAVIL 10 MG PO (21:19)
[2025-08-01] MEDS: DESYREL 100 MG PO (21:19)
[2025-08-01 21:45] LABS: Glucose - Point of Care 131 mg/dl (70-99)
[2025-08-02] MEDS: ROCEPHIN 1000 MG IV ×2 (00:01→22:48)
[2025-08-02] MEDS: STERILE WATER FOR INJECTION 10 ML IV ×2 (00:01→22:48)
[2025-08-02] MEDS: AMBIEN 10 MG PO (00:11)
[2025-08-02] MEDS: DILAUDID 0.5 MG IV ×4 (02:40→20:05)
[2025-08-02 07:45] LABS: Hematocrit 31.0 % (37.0-47.0); Hemoglobin 10.7 g/dL (12.0-16.0); Mean Corp Hgb Conc. 34.5 g/dL (33.0-37.0); Mean Corpuscular Volume 82.7 fL (81.0-99.0); Nucleated Red Blood Cells % 0 %; Platelet Count 470 10^3/uL (130-400); Red Cell Dist. Width 14.7 % (11.5-14.5)
[2025-08-02 08:15] VITALS: BP 122/73
[2025-08-02 08:32] LABS: ALT (SGPT) 15 U/L (0-35); AST (SGOT) 18 U/L (14-36); Albumin 2.7 g/dl (3.5-5.0); Alkaline Phosphatase 77 U/L (38-126); Blood Urea Nitrogen 6 mg/dl (7-17); Calcium 8.7 mg/dl (8.4-10.2); Carbon Dioxide 27 mmol/L (22-30); Chloride 102 mmol/L (98-107); Estimated Creatinine Clearance 97 ml/min; Glucose 78 mg/dl (70-99); Potassium 3.5 mmol/L (3.5-5.1); Sodium 136 mmol/L (135-145); Total Protein 6.1 g/dl (6.3-8.2); eGFR > 60.00
[2025-08-02] MEDS: ATARAX 50 MG PO ×3 (08:52→21:23)
[2025-08-02] MEDS: MIRALAX 17 GRAMS PO (08:52)
[2025-08-02] MEDS: PROTONIX 40 MG PO (08:52)
[2025-08-02] MEDS: PROZAC 40 MG PO (08:52)
[2025-08-02] MEDS: LYRICA 150 MG PO ×2 (08:52→20:02)
[2025-08-02] MEDS: VITAMIN B-12 1000 MCG PO (08:52)
[2025-08-02 08:54] LABS: Glucose - Point of Care 80 mg/dl (70-99)
--- NOTE | 2025-08-02 09:58 | W.PN.GS2 ---
Addendum entered and electronically signed by Jaylon Romero MD 08/02/25 10:16:
I saw and examined the patient.
The Director Medical Affairs's note was reviewed and I agree with the note.
Comment: Drain about 90cc out since ERCP light bilious, abd with mild ttp, no specific complaints this am other than mild 'discomfort.' Will adv diet and monitor drain output. Empiric abx to cont
Original Note:
Today's Communication / Plan
-
advance diet
analgesics
Assessment / Plan
-
This is a 59-year-old female with a history of a laparoscopic Rachel-en-Y gastric bypass who presented 07/20-07/24 with gangrenous cholecystitis status post laparoscopic subtotal cholecystectomy with cholangiogram and suture ligation of the cystic duct
on 07/22/25 with abscess noted intraop with NITZA left in place presenting with apparent cystic duct stump leak
PPD #1 ERCP with LAMS stent (transgastric), pyloric dilation, and successful biliary sphincterotomy with plastic stent placement into the common hepatic duct
AFVSS
No leukocytosis
LFT's WNL
NITZA outputs bilious, decreasing
Plan:
Advance diet
C/W NITZA drain
Continue antibiotics empirically.
Trend CMP, CBC
Bowel regimen
Analgesics prn, tylenol, oxycodone, dilaudid
Medical management as per primary team
Subjective Data
-
Date of Service: August 02, 2025
Pt seen and examined at bedside with Dr. Romeor. Denies n/v. Tolerating clears. Still with upper abdominal discomfort. C/O constipation. Passing gas.
Objective Data
-
Intake and Output
08/01/25 08/02/25 08/03/25
06:59 06:59 06:59
Intake Total 815 / 815
Output Total 90 / 90 95 / 95
Balance 725 / 725 -95 / -95
Intake:
Oral fluids 815 / 815
Output:
Drain Output (Total)
Right Tristan-Fisher
Other:
Number of approximated MODERATE 2 1
amounts of urine
Number of unmeasured liquid
stools
Rectum 1
Vital Signs
Temp Pulse Resp BP Pulse Ox
98.4 F 81 16 122/73 96
08/02/25 08:15 08/02/25 08:15 08/02/25 08:15 08/02/25 08:15 08/02/25 08:15
Lab Results
08/02/25 06:58
08/02/25 06:58
Calcium 8.7 mg/dl (8.4-10.2) 08/02/25 06:58
Total Bilirubin 0.5 mg/dl (0.2-1.3) 08/02/25 06:58
Direct Bilirubin 0.2 mg/dl (0.0-0.4) 07/31/25 07:28
AST 18 U/L (14-36) 08/02/25 06:58
ALT 15 U/L (0-35) 08/02/25 06:58
Alkaline Phosphatase 77 U/L (38-126) 08/02/25 06:58
Total Protein 6.1 g/dl (6.3-8.2) L 08/02/25 06:58
Albumin 2.7 g/dl (3.5-5.0) L 08/02/25 06:58
Physical Exam
-
GENERAL/NEURO: Awake, Alert, no distress
CHEST: Unlabored breathing on RA
ABDOMEN: Soft, Non-Tender, Non-Distended, incisions clean dry and intact. Right upper quadrant drain bilious.
Patient has a hickman catheter: No
Patient has a central line: No
[2025-08-02] MEDS: FLAGYL 500 MG 100 IV ×2 (11:11→21:23)
[2025-08-02] MEDS: MILK OF MAGNESIA 30 ML PO (11:11)
[2025-08-02 11:59] VITALS: BP 106/72
--- NOTE | 2025-08-02 12:03 | W.PN.HOSP.TC ---
Today's Communication/Plan
-
monitor vitals
see plan
cw abx
monitor drain
Assessment / Plan
Assessment / Plan
General: Well Developed, Well Nourished and No Apparent Distress
HEENT: NormoCephalic, Moist mucous membranes and Atraumatic
Respiratory: Clear
Cardiac: S1/S2 and Regular Rhythm; No Murmur or Rub
GI: Soft, Non Tender, Non Distended and Normal Bowel Sounds,+sutures,drain
Musculoskeletal: No Edema
Neuro: AO x 3 and Nonfocal/grossly intact
Psych: Calm
abdominal pain likely post surgical abscess vs biloma
Concern for cystic duct stump leak
#s/p Laparoscopic subtotal cholecystectomy with cholangiogram & Drainage of an intra-abdominal abscess (07/22)
-surgery following. Drain with serosanguineous drainage, still has bile in drain
GI following
-cw IV ceftriaxone and Flagyl
-GI following. s/p EDGE ERCP 08/01 ERCP with LAMS stent (transgastric), pyloric dilation, and successful biliary sphincterotomy with plastic stent placement into the common hepatic duct
diet per surgery
-dilaudid prn for pain
-CT abdomen pelvis with Changes of prior cholecystectomy. There is expected postoperative stranding within the gallbladder fossa, however there is continued fluid within the gallbladder fossa which may represent residual gallbladder or a possible
biloma. Extending inferiorly from the fluid in the gallbladder fossa is a small peripherally enhancing collection measuring 1.0 x 0.8 cm which may represent a small abscess or biloma. This extends just posterior to the hepatic flexure.Prior
Rachel-en-Y gastric bypass with a small hiatal hernia.Right greater than left bibasilar atelectasis.Large exophytic cyst along the lower pole the right kidney measuring up to 14.1 cm with associated mass effect.
Hypoglycemia, continue with D5. Accu-Cheks.
A1c 5.2
Large renal cyst
Monitor
Hyponatremia
Monitor
Hypokalemia
replete
hx Rachel en y bypass 2010
-dysphagia with recent EGD and follow up with Dr. Sohan Hanna and due for what sound like esophageal dilation
-wt loss with recent Mounjaro use
#GERD
Continue PPI
#bipolar, schizophrenia, MS, chronic back pain
-amitriptyline,fluoxetine, hydroxyzine, lorazepam,melatonin continued
Insomnia
Ambien
#DVT prophylaxis
-scd, pharmacological prophylaxis when okay with GI and surgery
#CODE status
-full code
I spent a total of 53 minutes with the patient or on the floor. More than 50% of this time involved counseling and coordination of care.
Anticipated Discharge: 24 - 48 hours
Subjective/Interval History
-
Date of Service: August 02, 2025
still has bile in drain
Objective Data
-
Labs:
Laboratory Results
08/02/25
06:58
WBC 9.3
Hgb 10.7 L
Hct 31.0 L
Plt Count 470 H
Sodium 136
Potassium 3.5
Chloride 102
Carbon Dioxide 27
BUN 6 L
Creatinine 0.5 L
Glucose 78
Calcium 8.7
Total Bilirubin 0.5
AST 18
ALT 15
Alkaline Phosphatase 77
Vital Signs:
Vital Signs
Temp Pulse Resp BP Pulse Ox
98.1 F 82 16 106/72 95
08/02/25 11:59 08/02/25 11:59 08/02/25 11:59 08/02/25 11:59 08/02/25 11:59
I&O
08/01/25 08/02/25 08/03/25
06:59 06:59 06:59
Intake Total 815 / 815
Output Total 90 / 90 95 / 95
Balance 725 / 725 -95 / -95
[2025-08-02 13:18] LABS: Glucose - Point of Care 81 mg/dl (70-99)
[2025-08-02] MEDS: COLACE 100 MG PO (14:35)
[2025-08-02 16:14] VITALS: BP 102/64
--- NOTE | 2025-08-02 17:06 | CM ---
Monitoring drain output, IV/Rocephin. Discharge POC: Anticipate resumption of [facility] RN services.
--- NOTE | 2025-08-02 17:28 | W.PN.GI.CBS2 ---
Today's Communication / Plan
-
.
Assessment / Plan
-
Pt is a 59yo with hx NIDDM, GERD, HTN, MS, chronic pain, anxiety, bipolar disorder, schizophrenia, prior gastric bypass 2010 with kody en Y, and recent subtotal anitra in setting of Mounjaro use with 50 lbs wt loss. In review of records pt with
recent admission 07/20-07/24 with abdominal pain, vomiting and diarrhea. She was noted with leukocytosis, fever and tachycardia. MRCP was completed with concern for cholecystitis without choledocholithiasis. She was taken to OP 07/22 with concern
for gangrenous cholecystitis and intra abdominal abscess with completed lap subtotal anitra with suture ligation of the cystic duct with cholangiogram and drainage of abscess with NITZA in place. She was discharged with course of antibiotics . She
now return with initial serous sanguinous drainage in NITZA then bile. CT on admission with prior anitra, stranding in GB fossa with continued fluid possible residual gallbladder vs biloma. There is extension of fluid in GB from GB fossa with
collection 1 x 0.8cm small abscess vs biloma. Also noted prior Kody en Y and small HH and large exophytic cyst lower pole of right kidney 14.1 cm with mass effect. At this time she admits to hx dysphagia followed by Dr. Sohan Hanna and
due for what sound like esophageal dilation with recent EGD completed. She also admits to GERD on Omeprazole daily, nausea without vomiting, and abdominal pain 03/24. Since surgery she has had loose stools dark brown and dark urine 07/29 that has
improved. Last EGD without last 3 months and colonoscopy within last year. Did not recall details. No NSAID or anticoagulation use.
s/p EDGE (EUS-directed transgastric ERCP) yesterday and biliary stent placement. Tolerated procedure well. Contrast extravasation was seen during cholangiogram confirming bile leak. 10 Fr DPPS placed. Today pt c/o some abdo pain, tolerating
diet. NITZA drain output seems to be decreasing. Continue to monitor NITZA drain output. Will plan on office f/u in about 4-5 weeks for stent removal and gastro-gastrostomy stent removal/closure.
Total Time Spent with Patient (in minutes): 35
Subjective
Subjective
Date of Service: August 02, 2025
mild abdo pain, tolerating diet
Objective
Data Reviewed
Laboratory Data:
Laboratory Results
08/02/25 06:58
08/02/25 06:58
Laboratory Results
PT 16.1 Sec (11.4-14.6) H 07/30/25 09:28
INR 1.27 07/30/25 09:28
Total Bilirubin 0.5 mg/dl (0.2-1.3) 08/02/25 06:58
AST 18 U/L (14-36) 08/02/25 06:58
ALT 15 U/L (0-35) 08/02/25 06:58
Alkaline Phosphatase 77 U/L (38-126) 08/02/25 06:58
Lipase 143 U/L (23-300) 07/29/25 14:26
Vital Signs and I&O:
Vital Signs
Temp Pulse Resp BP Pulse Ox
98.5 F 85 16 102/64 96
08/02/25 16:14 08/02/25 16:14 08/02/25 16:14 08/02/25 16:14 08/02/25 16:14
I&O
08/01/25 08/02/25 08/03/25
06:59 06:59 06:59
Intake Total 815 / 815
Output Total 90 / 90 95 / 95 20 / 20
Balance 725 / 725 -95 / -95 -20 / -20
[2025-08-02] MEDS: ROXICODONE 5 MG PO (18:06)
[2025-08-02 18:08] LABS: Glucose - Point of Care 108 mg/dl (70-99)
[2025-08-02] MEDS: COLACE PO (20:02)
[2025-08-02] MEDS: DESYREL 100 MG PO (21:23)
[2025-08-02] MEDS: ELAVIL 10 MG PO (21:29)
[2025-08-02 21:35] LABS: Glucose - Point of Care 94 mg/dl (70-99)
[2025-08-02 23:18] VITALS: BP 117/73
[2025-08-03] MEDS: AMBIEN 10 MG PO ×2 (01:40→22:44)
[2025-08-03 08:07] VITALS: BP 116/73
[2025-08-03 08:07] LABS: Glucose - Point of Care 84 mg/dl (70-99)
[2025-08-03 08:30] LABS: Hematocrit 32.6 % (37.0-47.0); Hemoglobin 10.9 g/dL (12.0-16.0); Mean Corp Hgb Conc. 33.4 g/dL (33.0-37.0); Mean Corpuscular Volume 83.8 fL (81.0-99.0); Nucleated Red Blood Cells % 0 %; Platelet Count 453 10^3/uL (130-400); Red Cell Dist. Width 15.0 % (11.5-14.5)
[2025-08-03] MEDS: VITAMIN B-12 1000 MCG PO (09:03)
[2025-08-03] MEDS: PROTONIX 40 MG PO (09:03)
[2025-08-03] MEDS: LYRICA 150 MG PO ×2 (09:03→20:06)
[2025-08-03] MEDS: ATARAX 50 MG PO ×3 (09:03→22:43)
[2025-08-03] MEDS: PROZAC 40 MG PO (09:03)
[2025-08-03] MEDS: MIRALAX 17 GRAMS PO (09:04)
[2025-08-03] MEDS: FLAGYL 500 MG 100 IV ×2 (09:04→22:43)
[2025-08-03] MEDS: COLACE 100 MG PO (09:04)
[2025-08-03] MEDS: FLUSH (NSS) 2 FLUSH IV ×2 (09:05→09:21)
[2025-08-03] MEDS: DILAUDID 0.5 MG IV (09:21)
[2025-08-03 10:58] LABS: ALT (SGPT) 13 U/L (0-35); AST (SGOT) 19 U/L (14-36); Albumin 2.6 g/dl (3.5-5.0); Alkaline Phosphatase 75 U/L (38-126); Blood Urea Nitrogen 6 mg/dl (7-17); Calcium 8.3 mg/dl (8.4-10.2); Carbon Dioxide 30 mmol/L (22-30); Chloride 100 mmol/L (98-107); Estimated Creatinine Clearance 97 ml/min; Glucose 71 mg/dl (70-99); Potassium 3.4 mmol/L (3.5-5.1); Sodium 135 mmol/L (135-145); Total Protein 5.8 g/dl (6.3-8.2); eGFR > 60.00
[2025-08-03 12:17] LABS: Glucose - Point of Care 88 mg/dl (70-99)
--- NOTE | 2025-08-03 12:31 | W.PN.GS2 ---
Today's Communication / Plan
-
c/w drain
Assessment / Plan
-
This is a 59-year-old female with a history of a laparoscopic Rachel-en-Y gastric bypass who presented 07/20-07/24 with gangrenous cholecystitis status post laparoscopic subtotal cholecystectomy with cholangiogram and suture ligation of the cystic duct
on 07/22/25 with abscess noted intraop with NITZA left in place presenting with apparent cystic duct stump leak
PPD #2 ERCP with LAMS stent (transgastric), pyloric dilation, and successful biliary sphincterotomy with plastic stent placement into the common hepatic duct
AFVSS
No leukocytosis
LFT's WNL
NITZA outputs bilious, volumes decreasing post procedure
Plan:
Diet as tolerated
C/W NITZA drain
Continue antibiotics empirically.
Trend CMP, CBC
Bowel regimen
Analgesics prn, tylenol, oxycodone
Medical management as per primary team
Subjective Data
-
Date of Service: August 03, 2025
Pt seen and examined at bedside. Still with residual epigastrium discomfort across her upper abdomen. Denies nausea but poor appetite.
Objective Data
-
Intake and Output
08/02/25 08/03/25 08/04/25
06:59 06:59 06:59
Output Total 95 / 95 45 / 45
Balance -95 / -95 -45 / -45
Output:
Drain Output (Total) 95 / 95 45 / 45
Right Tristan-Fisher 95 / 95 45 / 45
Other:
Number of approximated MODERATE 1
amounts of urine
Number of unmeasured liquid
stools
Rectum 1 1
Vital Signs
Temp Pulse Resp BP Pulse Ox
98.7 F 81 16 116/73 91
08/03/25 08:07 08/03/25 08:07 08/03/25 08:07 08/03/25 08:07 08/03/25 08:07
Lab Results
08/03/25 07:52
08/03/25 07:52
Calcium 8.3 mg/dl (8.4-10.2) L 08/03/25 07:52
Total Bilirubin 0.4 mg/dl (0.2-1.3) 08/03/25 07:52
Direct Bilirubin 0.2 mg/dl (0.0-0.4) 07/31/25 07:28
AST 19 U/L (14-36) 08/03/25 07:52
ALT 13 U/L (0-35) 08/03/25 07:52
Alkaline Phosphatase 75 U/L (38-126) 08/03/25 07:52
Total Protein 5.8 g/dl (6.3-8.2) L 08/03/25 07:52
Albumin 2.6 g/dl (3.5-5.0) L 08/03/25 07:52
Physical Exam
-
GENERAL/NEURO: Awake, Alert, no distress
CHEST: Unlabored breathing on RA
ABDOMEN: Soft, Non-Tender, Non-Distended, incisions clean dry and intact. Right upper quadrant drain bilious.
Patient has a hickman catheter: No
Patient has a central line: No
--- NOTE | 2025-08-03 14:31 | W.PN.HOSP.TC ---
Today's Communication/Plan
-
Monitor vital signs and see plan
Surgery following
Continue with current diet
Monitor drain
Continue antibiotic
Assessment / Plan
Assessment / Plan
General: Well Developed, Well Nourished and No Apparent Distress
HEENT: NormoCephalic, Moist mucous membranes and Atraumatic
Respiratory: Clear
Cardiac: S1/S2 and Regular Rhythm; No Murmur or Rub
GI: Soft, Non Tender, Non Distended and Normal Bowel Sounds,+sutures,drain
Musculoskeletal: No Edema
Neuro: AO x 3 and Nonfocal/grossly intact
Psych: Calm
abdominal pain likely post surgical abscess vs biloma
Concern for cystic duct stump leak
#s/p Laparoscopic subtotal cholecystectomy with cholangiogram & Drainage of an intra-abdominal abscess (07/22)
-surgery following. Drain with serosanguineous drainage, still has bile in drain
GI following
-cw IV ceftriaxone and Flagyl
-GI following. s/p EDGE ERCP 08/01 ERCP with LAMS stent (transgastric), pyloric dilation, and successful biliary sphincterotomy with plastic stent placement into the common hepatic duct
diet per surgery
-dilaudid prn for pain
-CT abdomen pelvis with Changes of prior cholecystectomy. There is expected postoperative stranding within the gallbladder fossa, however there is continued fluid within the gallbladder fossa which may represent residual gallbladder or a possible
biloma. Extending inferiorly from the fluid in the gallbladder fossa is a small peripherally enhancing collection measuring 1.0 x 0.8 cm which may represent a small abscess or biloma. This extends just posterior to the hepatic flexure.Prior
Rachel-en-Y gastric bypass with a small hiatal hernia.Right greater than left bibasilar atelectasis.Large exophytic cyst along the lower pole the right kidney measuring up to 14.1 cm with associated mass effect.
Will need to follow-up with GI outpatient
Hypoglycemia, continue with D5. Accu-Cheks.
A1c 5.2
Large renal cyst
Monitor
Hyponatremia
Monitor
Hypokalemia
replete
hx Rachel en y bypass 2010
-dysphagia with recent EGD and follow up with Dr. Sohan Hanna and due for what sound like esophageal dilation
-wt loss with recent Mounjaro use
#GERD
Continue PPI
#bipolar, schizophrenia, MS, chronic back pain
-amitriptyline,fluoxetine, hydroxyzine, lorazepam,melatonin continued
Insomnia
Ambien
#DVT prophylaxis
-scd, pharmacological prophylaxis when okay with GI and surgery
#CODE status
-full code
Anticipated Discharge: 24 - 48 hours
Subjective/Interval History
-
Date of Service: August 03, 2025
Does have some discomfort and biliary drain
Objective Data
-
Labs:
Laboratory Results
08/03/25
07:52
WBC 7.5
Hgb 10.9 L
Hct 32.6 L
Plt Count 453 H
Sodium 135
Potassium 3.4 L
Chloride 100
Carbon Dioxide 30
BUN 6 L
Creatinine 0.5 L
Glucose 71
Calcium 8.3 L
Total Bilirubin 0.4
AST 19
ALT 13
Alkaline Phosphatase 75
Vital Signs:
Vital Signs
Temp Pulse Resp BP Pulse Ox
98.7 F 81 16 116/73 91
08/03/25 08:07 08/03/25 08:07 08/03/25 08:07 08/03/25 08:07 08/03/25 08:07
I&O
08/02/25 08/03/25 08/04/25
06:59 06:59 06:59
Output Total 95 / 95 45 / 45
Balance -95 / -95 -45 / -45
[2025-08-03] MEDS: ROXICODONE 5 MG PO ×2 (15:29→20:06)
[2025-08-03 15:31] VITALS: BP 117/72
[2025-08-03 17:49] LABS: Glucose - Point of Care 105 mg/dl (70-99)
[2025-08-03] MEDS: COLACE PO (20:06)
[2025-08-03 22:04] LABS: Glucose - Point of Care 106 mg/dl (70-99)
[2025-08-03] MEDS: DESYREL 100 MG PO (22:42)
[2025-08-03] MEDS: ELAVIL 10 MG PO (22:42)
[2025-08-03] MEDS: ROCEPHIN 1000 MG IV (22:42)
[2025-08-03] MEDS: STERILE WATER FOR INJECTION 10 ML IV (22:43)
[2025-08-03 23:20] VITALS: BP 118/68
[2025-08-04] MEDS: ROXICODONE 5 MG PO ×3 (06:33→21:00)
[2025-08-04 07:13] LABS: Hematocrit 32.2 % (37.0-47.0); Hemoglobin 11.0 g/dL (12.0-16.0); Mean Corp Hgb Conc. 34.2 g/dL (33.0-37.0); Mean Corpuscular Volume 81.1 fL (81.0-99.0); Nucleated Red Blood Cells % 0 %; Platelet Count 428 10^3/uL (130-400); Red Cell Dist. Width 14.6 % (11.5-14.5)
[2025-08-04 07:43] LABS: ALT (SGPT) 13 U/L (0-35); AST (SGOT) 18 U/L (14-36); Albumin 2.6 g/dl (3.5-5.0); Alkaline Phosphatase 74 U/L (38-126); Blood Urea Nitrogen 5 mg/dl (7-17); Calcium 8.4 mg/dl (8.4-10.2); Carbon Dioxide 30 mmol/L (22-30); Chloride 101 mmol/L (98-107); Estimated Creatinine Clearance 97 ml/min; Glucose 89 mg/dl (70-99); Potassium 3.2 mmol/L (3.5-5.1); Sodium 135 mmol/L (135-145); Total Protein 5.9 g/dl (6.3-8.2); eGFR > 60.00
[2025-08-04 07:44] VITALS: BP 127/76
[2025-08-04 07:45] LABS: Glucose - Point of Care 83 mg/dl (70-99)
[2025-08-04] MEDS: VITAMIN B-12 1000 MCG PO (10:10)
[2025-08-04] MEDS: PROZAC 40 MG PO (10:10)
[2025-08-04] MEDS: LYRICA 150 MG PO ×2 (10:11→21:00)
[2025-08-04] MEDS: ATARAX 50 MG PO ×3 (10:11→21:41)
[2025-08-04] MEDS: PROTONIX 40 MG PO (10:11)
[2025-08-04] MEDS: FLAGYL 500 MG 100 IV ×2 (10:11→21:41)
[2025-08-04] MEDS: FLUSH (NSS) 2 FLUSH IV (10:17)
[2025-08-04] MEDS: COLACE PO ×2 (10:18→21:01)
[2025-08-04] MEDS: MIRALAX PO (10:18)
[2025-08-04] MEDS: KCL ELIXIR 40 MEQ PO (10:25)
--- NOTE | 2025-08-04 10:52 | W.PN.GS2 ---
Addendum entered and electronically signed by Oliverio Hall MD 08/04/25 15:24:
Patient seen and examined with surgical [employer].
Patient's daughter from [place] present at bedside. Patient's other daughter present on video cell phone call.
Overall patient is stable and appears to be more apprehensive and nervous about current care
She has tolerated up to full liquids with marginal appetite but no vomiting.
She reports persistent but not worsening abdominal pain
AFVSS
Laboratory testing unremarkable
NAD AAO x 3
ABD: Soft, not significantly distended, mild tenderness in the epigastrium and bilateral upper quadrants but no rebound/rigidity.
NITZA is bilious tinged but outputs significantly improved
A/P: 59-year-old female now PPD #3 status post ERCP via Edge procedure for postop bile leak
Leak appears well-controlled and improved
Low-fat diet as tolerated; encourage patient to try some more p.o. intake
Probable DC in 24 hours assuming clinical stability
NITZA will be maintained
Any of the patient's or her either daughters questions were confirmed to be fully addressed
Original Note:
Today's Communication / Plan
-
c/w NITZA drain, follow outputs closely
Assessment / Plan
-
This is a 59-year-old female with a history of a laparoscopic Rachel-en-Y gastric bypass who presented 07/20-07/24 with gangrenous cholecystitis status post laparoscopic subtotal cholecystectomy with cholangiogram and suture ligation of the cystic duct
on 07/22/25 with abscess noted intraop with NITZA left in place presenting with apparent cystic duct stump leak
PPD #3 ERCP with LAMS stent (transgastric), pyloric dilation, and successful biliary sphincterotomy with plastic stent placement into the common hepatic duct
AFVSS
No leukocytosis
mild hypokalemia
LFT's WNL
NITZA outputs bilious, volumes decreasing post procedure (45ml over last 24hours)
Still with upper abdominal discomfort (epigastric) and poor appetite but improving overall
Plan:
Diet as tolerated
C/W NITZA drain
Continue antibiotics empirically.
Trend CMP, CBC
Bowel regimen
Analgesics prn, tylenol, oxycodone
Medical management as per primary team
Subjective Data
-
Date of Service: August 04, 2025
Pt seen and examined at bedside. Poor appetite overall but improved from yesterday. Denies n/v. Upper abdominal discomfort persists but notes oxycodone is helping.
Objective Data
-
Intake and Output
08/03/25 08/04/25 08/05/25
06:59 06:59 06:59
Intake Total 100 / 100
Output Total 45 / 45
Balance -45 / -45 100 / 100
Intake:
IV piggybacks 100 / 100
Output:
Drain Output (Total) 45 / 45
Right Tristna-Fisher 45 / 45
Other:
Number of approximated SMALL 1
amounts of urine
Number of unmeasured liquid
stools
Rectum 1
Vital Signs
Temp Pulse Resp BP Pulse Ox
98.2 F 74 16 127/76 93
08/04/25 07:44 08/04/25 07:44 08/04/25 07:44 08/04/25 07:44 08/04/25 07:44
Lab Results
08/04/25 06:38
08/04/25 06:38
Calcium 8.4 mg/dl (8.4-10.2) 08/04/25 06:38
Total Bilirubin 0.5 mg/dl (0.2-1.3) 08/04/25 06:38
Direct Bilirubin 0.2 mg/dl (0.0-0.4) 07/31/25 07:28
AST 18 U/L (14-36) 08/04/25 06:38
ALT 13 U/L (0-35) 08/04/25 06:38
Alkaline Phosphatase 74 U/L (38-126) 08/04/25 06:38
Total Protein 5.9 g/dl (6.3-8.2) L 08/04/25 06:38
Albumin 2.6 g/dl (3.5-5.0) L 08/04/25 06:38
Physical Exam
-
GENERAL/NEURO: Awake, Alert, no distress
CHEST: Unlabored breathing on RA
ABDOMEN: Soft, mild upper abdominal tenderness, Non-Distended, incisions clean dry and intact. Right upper quadrant drain bilious.
Patient has a hickman catheter: No
Patient has a central line: No
--- NOTE | 2025-08-04 11:31 | W.PN.HOSP.TC ---
Today's Communication/Plan
-
Monitor vital signs and see plan
Discussed with surgery, will monitor NITZA drain
Add pharm DVT prophylaxis if okay with surgery
cw abx
encourage PO intake
Assessment / Plan
Assessment / Plan
General: Well Developed, Well Nourished and No Apparent Distress
HEENT: NormoCephalic, Moist mucous membranes and Atraumatic
Respiratory: Clear
Cardiac: S1/S2 and Regular Rhythm; No Murmur or Rub
GI: Soft, Non Tender, Non Distended and Normal Bowel Sounds,+sutures,drain
Musculoskeletal: No Edema
Neuro: AO x 3 and Nonfocal/grossly intact
Psych: Calm
abdominal pain likely 2/2 bile leak
Concern for cystic duct stump leak
#s/p Laparoscopic subtotal cholecystectomy with cholangiogram & Drainage of an intra-abdominal abscess (07/22)
-surgery following. Drain with serosanguineous drainage, still has bile in drain but slowing down
GI following
-cw IV ceftriaxone and Flagyl, unknown reaction from penicillins, can try Augmentin when stable from surgical standpoint
-GI following. s/p EDGE ERCP 08/01 ERCP with LAMS stent (transgastric), pyloric dilation, and successful biliary sphincterotomy with plastic stent placement into the common hepatic duct
diet per surgery
-dilaudid prn for pain
-CT abdomen pelvis with Changes of prior cholecystectomy. There is expected postoperative stranding within the gallbladder fossa, however there is continued fluid within the gallbladder fossa which may represent residual gallbladder or a possible
biloma. Extending inferiorly from the fluid in the gallbladder fossa is a small peripherally enhancing collection measuring 1.0 x 0.8 cm which may represent a small abscess or biloma. This extends just posterior to the hepatic flexure.Prior
Rachel-en-Y gastric bypass with a small hiatal hernia.Right greater than left bibasilar atelectasis.Large exophytic cyst along the lower pole the right kidney measuring up to 14.1 cm with associated mass effect.
Will need to follow-up with GI outpatient
Hypoglycemia, Accu-Cheks.
A1c 5.2
resolved
Large renal cyst
Monitor
Hyponatremia
Monitor
Hypokalemia
replete
hx Rachel en y bypass 2010
-dysphagia with recent EGD and follow up with Dr. Sohan Hanna and due for what sound like esophageal dilation
-wt loss with recent Mounjaro use
#GERD
Continue PPI
#bipolar, schizophrenia, MS, chronic back pain
-amitriptyline,fluoxetine, hydroxyzine, lorazepam,melatonin continued
Insomnia
Ambien
#DVT prophylaxis
-scd, pharmacological prophylaxis when okay with surgery
#CODE status
-full code
Anticipated Discharge: Within 24 hours
Subjective/Interval History
-
Date of Service: August 04, 2025
has some discomfort
Objective Data
-
Labs:
Laboratory Results
08/04/25
06:38
WBC 6.9
Hgb 11.0 L
Hct 32.2 L
Plt Count 428 H
Sodium 135
Potassium 3.2 L
Chloride 101
Carbon Dioxide 30
BUN 5 L
Creatinine 0.5 L
Glucose 89
Calcium 8.4
Total Bilirubin 0.5
AST 18
ALT 13
Alkaline Phosphatase 74
Vital Signs:
Vital Signs
Temp Pulse Resp BP Pulse Ox
98.2 F 74 16 127/76 93
08/04/25 07:44 08/04/25 07:44 08/04/25 07:44 08/04/25 07:44 08/04/25 07:44
I&O
08/03/25 08/04/25 08/05/25
06:59 06:59 06:59
Intake Total 100 / 100
Output Total 45 / 45
Balance -45 / -45 100 / 100
[2025-08-04] MEDS: ATIVAN 0.5 MG PO (11:45)
[2025-08-04 12:37] LABS: Glucose - Point of Care 85 mg/dl (70-99)
[2025-08-04 15:15] VITALS: BP 128/70
[2025-08-04 17:57] LABS: Glucose - Point of Care 92 mg/dl (70-99)
[2025-08-04] MEDS: LOVENOX 40 MG SC (18:30)
[2025-08-04 21:13] LABS: Glucose - Point of Care 129 mg/dl (70-99)
[2025-08-04] MEDS: DESYREL 100 MG PO (21:41)
[2025-08-04] MEDS: ELAVIL 10 MG PO (21:41)
[2025-08-04 23:15] VITALS: BP 123/74
[2025-08-04] MEDS: STERILE WATER FOR INJECTION 10 ML IV (23:52)
[2025-08-04] MEDS: ROCEPHIN 1000 MG IV (23:52)
[2025-08-05] MEDS: AMBIEN 10 MG PO ×2 (00:04→23:06)
[2025-08-05 07:20] VITALS: BP 121/73
[2025-08-05 07:45] LABS: Glucose - Point of Care 87 mg/dl (70-99)
[2025-08-05] MEDS: ATARAX 50 MG PO ×3 (08:25→23:10)
[2025-08-05] MEDS: PROZAC 40 MG PO (08:25)
[2025-08-05] MEDS: COLACE PO ×2 (08:26→21:03)
[2025-08-05] MEDS: PROTONIX 40 MG PO (08:26)
[2025-08-05] MEDS: LYRICA 150 MG PO ×2 (08:26→20:59)
[2025-08-05] MEDS: VITAMIN B-12 1000 MCG PO (08:26)
[2025-08-05] MEDS: ROXICODONE 5 MG PO ×3 (08:40→21:12)
[2025-08-05 09:46] LABS: Hematocrit 34.3 % (37.0-47.0); Hemoglobin 11.7 g/dL (12.0-16.0); Mean Corp Hgb Conc. 34.1 g/dL (33.0-37.0); Mean Corpuscular Volume 81.1 fL (81.0-99.0); Nucleated Red Blood Cells % 0 %; Platelet Count 462 10^3/uL (130-400); Red Cell Dist. Width 14.9 % (11.5-14.5)
--- NOTE | 2025-08-05 10:00 | W.PN.GS2 ---
Addendum entered and electronically signed by Aram Espinosa MD 08/05/25 11:49:
Diet: Low-fat, low residue. Instructed the patient to chew her food very very well to almost pur�e like consistency as there is a risk that thicker food could clog her gastrogastric stent.
She will need to follow-up with GI as an outpatient for stent removal and possible reversal of her gastrogastric anastomosis.
Original Note:
Today's Communication / Plan
-
Can begin dispo planning
Assessment / Plan
-
This is a 59-year-old female with a history of a laparoscopic Rachel-en-Y gastric bypass who presented 07/20-07/24 with gangrenous cholecystitis status post laparoscopic subtotal cholecystectomy with cholangiogram and suture ligation of the cystic duct
on 07/22/25 with abscess noted intraop with NITZA left in place presenting with apparent cystic duct stump leak
PPD #4 ERCP with LAMS stent (transgastric), pyloric dilation, and successful biliary sphincterotomy with plastic stent placement into the common hepatic duct
AFVSS
No leukocytosis
mild hypokalemia
LFT's WNL
NITZA outputs bilious, volumes decreasing post procedure (50ml over last 24hours)
Still with upper abdominal discomfort but overall improving.
Plan:
Diet as tolerated
C/W NITZA drain
Will plan to stop antibiotics tomorrow
Trend CMP, CBC
Bowel regimen
Analgesics prn, tylenol, oxycodone
Medical management as per primary team
Would begin dispo planning, plan to send patient out with a drain and have her follow-up with me early next week for possible drain removal.
Time Spent
Total Time Spent with Patient (in minutes): 20
Subjective Data
-
Date of Service: August 05, 2025
Interval Events:
No acute events overnight. Slept well. Pain Controlled. Denies Nausea/Vomiting, +bowel function. Tolerating diet.
Objective Data
-
Intake and Output
08/04/25 08/05/25 08/06/25
06:59 06:59 06:59
Intake Total 100 / 100 1540 / 1540
Output Total 50 / 50
Balance 100 / 100 1490 / 1490
Intake:
Oral fluids 1440 / 1440
IV piggybacks 100 / 100 100 / 100
Output:
Drain Output (Total) 50 / 50
Right Tristan-Fisher 50 / 50
Other:
Number of approximated SMALL 1
amounts of urine
Number of approximated MODERATE 2
amounts of urine
Vital Signs
Temp Pulse Resp BP Pulse Ox
97.9 F 71 16 121/73 95
08/05/25 07:20 08/05/25 07:20 08/05/25 07:20 08/05/25 07:20 08/05/25 08:32
Lab Results
08/05/25 08:55
Calcium 8.4 mg/dl (8.4-10.2) 08/04/25 06:38
Total Bilirubin 0.5 mg/dl (0.2-1.3) 08/04/25 06:38
Direct Bilirubin 0.2 mg/dl (0.0-0.4) 07/31/25 07:28
AST 18 U/L (14-36) 08/04/25 06:38
ALT 13 U/L (0-35) 08/04/25 06:38
Alkaline Phosphatase 74 U/L (38-126) 08/04/25 06:38
Total Protein 5.9 g/dl (6.3-8.2) L 08/04/25 06:38
Albumin 2.6 g/dl (3.5-5.0) L 08/04/25 06:38
Physical Exam
-
GENERAL/NEURO: Awake, Alert, no distress
CHEST: Unlabored breathing on RA
ABDOMEN: Soft, Non-Tender, Non-Distended, NITZA with bilious output
Patient has a hickman catheter: No
Patient has a central line: No
[2025-08-05] MEDS: FLAGYL 500 MG 100 IV ×2 (10:18→23:07)
--- NOTE | 2025-08-05 10:45 | W.PN.HOSP.TC ---
Today's Communication/Plan
-
Continue current care
Assessment / Plan
Assessment / Plan
General: Well Developed, Well Nourished and No Apparent Distress
HEENT: NormoCephalic, Moist mucous membranes and Atraumatic
Respiratory: Clear
Cardiac: S1/S2 and Regular Rhythm; No Murmur or Rub
GI: Soft, Tender mostly on the right side, Non Distended and Normal Bowel Sounds,+sutures,drain
Musculoskeletal: No Edema
Neuro: AO x 3 and Nonfocal/grossly intact
Psych: Calm
Postoperative bile leak -
Concern for cystic duct stump leak
s/p Laparoscopic subtotal cholecystectomy with cholangiogram & Drainage of an intra-abdominal abscess (07/22)
-surgery following. Drain with serosanguineous drainage, still has bile in drain but slowing down
GI following
-cw IV ceftriaxone and Flagyl, unknown reaction from penicillins, can try Augmentin when stable from surgical standpoint
-GI following. s/p EDGE ERCP 08/01 ERCP with LAMS stent (transgastric), pyloric dilation, and successful biliary sphincterotomy with plastic stent placement into the common hepatic duct
diet per surgery
- Oxycodone as needed for pain
-CT abdomen pelvis with Changes of prior cholecystectomy. There is expected postoperative stranding within the gallbladder fossa, however there is continued fluid within the gallbladder fossa which may represent residual gallbladder or a possible
biloma. Extending inferiorly from the fluid in the gallbladder fossa is a small peripherally enhancing collection measuring 1.0 x 0.8 cm which may represent a small abscess or biloma. This extends just posterior to the hepatic flexure.Prior
Rachel-en-Y gastric bypass with a small hiatal hernia.Right greater than left bibasilar atelectasis.Large exophytic cyst along the lower pole the right kidney measuring up to 14.1 cm with associated mass effect.
Will need to follow-up with GI outpatient
Hypoglycemia, Accu-Cheks.
A1c 5.2
resolved
Large renal cyst
Monitor
Hyponatremia -resolved.
Hypokalemia -labs pending for today, check magnesium.
hx Rachel en y bypass 2010
-dysphagia with recent EGD and follow up with Dr. Sohan Hanna and due for what sound like esophageal dilation
-wt loss with recent Mounjaro use
GERD
Continue PPI
bipolar, schizophrenia, MS, chronic back pain
-amitriptyline,fluoxetine, hydroxyzine, lorazepam,melatonin continued
Insomnia
Ambien
DVT prophylaxis
-scd, pharmacological prophylaxis when okay with surgery
Full code
Dispo -discharge when cleared by general surgery.
Anticipated Discharge: Within 24 hours
Subjective/Interval History
-
Date of Service: August 05, 2025
Patient seen and examined. Complaining of right upper quadrant pain. Intensity is the same as the weekend but this time is sharper.
Objective Data
-
Labs:
Laboratory Results
08/05/25
08:55
WBC 7.3
Hgb 11.7 L
Hct 34.3 L
Plt Count 462 H
Sodium Pending
Potassium Pending
Chloride Pending
Carbon Dioxide Pending
BUN Pending
Creatinine Pending
Glucose Pending
Calcium Pending
Total Bilirubin Pending
AST Pending
ALT Pending
Alkaline Phosphatase Pending
Vital Signs:
Vital Signs
Temp Pulse Resp BP Pulse Ox
97.9 F 71 16 121/73 95
08/05/25 07:20 08/05/25 07:20 08/05/25 07:20 08/05/25 07:20 08/05/25 08:32
I&O
08/04/25 08/05/25 08/06/25
06:59 06:59 06:59
Intake Total 100 / 100 1540 / 1540 100 / 100
Output Total 50 / 50
Balance / 100 1490 / 1490 /
Review of Systems
-
History Source: Patient
All other systems: Reviewed and negative
[2025-08-05 11:01] LABS: ALT (SGPT) 12 U/L (0-35); AST (SGOT) 19 U/L (14-36); Albumin 3.0 g/dl (3.5-5.0); Alkaline Phosphatase 80 U/L (38-126); Blood Urea Nitrogen 4 mg/dl (7-17); Calcium 8.8 mg/dl (8.4-10.2); Carbon Dioxide 30 mmol/L (22-30); Chloride 101 mmol/L (98-107); Estimated Creatinine Clearance 97 ml/min; Glucose 83 mg/dl (70-99); Potassium 3.6 mmol/L (3.5-5.1); Sodium 135 mmol/L (135-145); Total Protein 6.4 g/dl (6.3-8.2); eGFR > 60.00
[2025-08-05 11:14] LABS: Magnesium 1.9 mg/dl (1.6-2.3)
[2025-08-05 11:49] LABS: Glucose - Point of Care 89 mg/dl (70-99)
--- NOTE | 2025-08-05 11:59 | CM ---
CM reviewed chart- ADC tomorrow
Bedside meeting with pt
Plan for home with sanya drain per surgery with outpt follow
Pt independent in room per nursing notes
Discussed dc planning and she is requesting to resume care with [facility]
IMM verbally reviewed- copy provided
Dtr will transport home on dc
VN order on chart
Discharge Disposition- home with [facility]AL, dtr transport
[2025-08-05 15:31] VITALS: BP 121/76
[2025-08-05 17:09] LABS: Glucose - Point of Care 104 mg/dl (70-99)
[2025-08-05] MEDS: LOVENOX 40 MG SC (17:20)
[2025-08-05 21:26] LABS: Glucose - Point of Care 101 mg/dl (70-99)
[2025-08-05] MEDS: STERILE WATER FOR INJECTION 10 ML IV (23:10)
[2025-08-05] MEDS: MELATONIN 10 MG PO (23:10)
[2025-08-05] MEDS: ELAVIL 10 MG PO (23:10)
[2025-08-05] MEDS: DESYREL 100 MG PO (23:14)
[2025-08-05] MEDS: ROCEPHIN 1000 MG IV (23:27)
[2025-08-05 23:35] VITALS: BP 116/65
[2025-08-06 07:49] LABS: Glucose - Point of Care 87 mg/dl (70-99)
[2025-08-06] MEDS: PROZAC 40 MG PO (07:54)
[2025-08-06] MEDS: COLACE PO (07:55)
[2025-08-06] MEDS: VITAMIN B-12 1000 MCG PO (07:55)
[2025-08-06] MEDS: LYRICA 150 MG PO (07:55)
[2025-08-06] MEDS: PROTONIX 40 MG PO (07:55)
[2025-08-06] MEDS: ATARAX 50 MG PO (07:55)
[2025-08-06 08:19] VITALS: BP 114/61
[2025-08-06] MEDS: FLAGYL 500 MG PO (09:57)
--- NOTE | 2025-08-06 10:54 | W.PN.GS2 ---
Today's Communication / Plan
-
Dispo planning with drain
discharge instructions updated
Assessment / Plan
-
This is a 59-year-old female with a history of a laparoscopic Rachel-en-Y gastric bypass who presented 07/20-07/24 with gangrenous cholecystitis status post laparoscopic subtotal cholecystectomy with cholangiogram and suture ligation of the cystic duct
on 07/22/25 with abscess noted intraop with NITZA left in place presenting with apparent cystic duct stump leak
PPD #5 ERCP with LAMS stent (transgastric), pyloric dilation, and successful biliary sphincterotomy with plastic stent placement into the common hepatic duct
AFVSS
No leukocytosis
mild hypokalemia
LFT's WNL
NITZA outputs bilious, volumes decreasing post procedure (50ml over last 24hours)
Still with upper abdominal discomfort but overall improving.
Plan:
Diet as tolerated
C/W NITZA drain
Can stop antibiotics on discharge.
Okay from a surgery perspective to DC today with the drain, she is already manage this at home.
She will follow-up with one of my partners as an outpatient next week for possible drain removal.
She will follow-up with gastroenterology/Dr. York in the upcoming weeks for removal of her stents
Time Spent
Total Time Spent with Patient (in minutes): 20
Subjective Data
-
Date of Service: August 06, 2025
Interval Events:
No acute events overnight. Slept well. Pain Controlled. Denies Nausea/Vomiting, +bowel function. Tolerating diet.
Objective Data
-
Intake and Output
08/05/25 08/06/25 08/07/25
06:59 06:59 06:59
Intake Total 1540 / 1540 1420 / 1420
Output Total 50 / 50
Balance 1490 / 1490 1410 / 1410
Intake:
Oral fluids 1440 / 1440 1320 / 1320
IV piggybacks 100 / 100 100 / 100
Output:
Drain Output (Total)
Right Tristan-Fisher
Other:
Number of approximated MODERATE 2 3
amounts of urine
Number of unmeasured liquid
stools
Rectum 3
Vital Signs
Temp Pulse Resp BP Pulse Ox
98.4 F 73 16 114/61 96
08/06/25 08:19 08/06/25 08:19 08/06/25 08:19 08/06/25 08:19 08/06/25 10:02
Lab Results
08/05/25 08:55
08/05/25 08:55
Calcium 8.8 mg/dl (8.4-10.2) 08/05/25 08:55
Magnesium 1.9 mg/dl (1.6-2.3) 08/05/25 08:55
Total Bilirubin 0.6 mg/dl (0.2-1.3) 08/05/25 08:55
Direct Bilirubin 0.2 mg/dl (0.0-0.4) 07/31/25 07:28
AST 19 U/L (14-36) 08/05/25 08:55
ALT 12 U/L (0-35) 08/05/25 08:55
Alkaline Phosphatase 80 U/L (38-126) 08/05/25 08:55
Total Protein 6.4 g/dl (6.3-8.2) 08/05/25 08:55
Albumin 3.0 g/dl (3.5-5.0) L 08/05/25 08:55
Physical Exam
-
GENERAL/NEURO: Awake, Alert, no distress
CHEST: Unlabored breathing on RA
ABDOMEN: Soft, Non-Tender, Non-Distended, NITZA with some light bilious more serous appearing fluid. 10 cc in 24 hours
Patient has a hickman catheter: No
Patient has a central line: No
--- NOTE | 2025-08-06 11:20 | W.PN.HOSP.TC ---
Today's Communication/Plan
-
Discharge
Assessment / Plan
Assessment / Plan
General: Well Developed, Well Nourished and No Apparent Distress
HEENT: NormoCephalic, Moist mucous membranes and Atraumatic
Respiratory: Clear
Cardiac: S1/S2 and Regular Rhythm; No Murmur or Rub
GI: Soft, Tender mostly on the right side, Non Distended and Normal Bowel Sounds,+sutures,drain
Musculoskeletal: No Edema
Neuro: AO x 3 and Nonfocal/grossly intact
Psych: Calm
Postoperative bile leak -
Concern for cystic duct stump leak
s/p Laparoscopic subtotal cholecystectomy with cholangiogram & Drainage of an intra-abdominal abscess (07/22)
-surgery following. Drain with serosanguineous drainage, still has bile in drain but slowing down
GI following
- Spoke with Dr. Higgins from general surgery, can stop antibiotics on discharge.
-GI following. s/p EDGE ERCP 08/01 ERCP with LAMS stent (transgastric), pyloric dilation, and successful biliary sphincterotomy with plastic stent placement into the common hepatic duct
diet per surgery
- Oxycodone as needed for pain
-CT abdomen pelvis with Changes of prior cholecystectomy. There is expected postoperative stranding within the gallbladder fossa, however there is continued fluid within the gallbladder fossa which may represent residual gallbladder or a possible
biloma. Extending inferiorly from the fluid in the gallbladder fossa is a small peripherally enhancing collection measuring 1.0 x 0.8 cm which may represent a small abscess or biloma. This extends just posterior to the hepatic flexure.Prior
Rachel-en-Y gastric bypass with a small hiatal hernia.Right greater than left bibasilar atelectasis.Large exophytic cyst along the lower pole the right kidney measuring up to 14.1 cm with associated mass effect.
Will need to follow-up with GI outpatient
Hypoglycemia, Accu-Cheks.
A1c 5.2
resolved
Large renal cyst
Monitor
Hyponatremia -resolved.
Hypokalemia -labs pending for today, check magnesium.
hx Rachel en y bypass 2010
-dysphagia with recent EGD and follow up with Dr. Sohan Hanna and due for what sound like esophageal dilation
-wt loss with recent Mounjaro use
GERD
Continue PPI
bipolar, schizophrenia, MS, chronic back pain
-amitriptyline,fluoxetine, hydroxyzine, lorazepam,melatonin continued
Insomnia
Ambien
DVT prophylaxis
-scd, pharmacological prophylaxis when okay with surgery
Full code
Dispo -medically stable for discharge as per surgical team. Discharge with drain in place. Outpatient follow-up. Visiting nursing.
Follow-up with general surgery and gastroenterology.
32-minute spent in discharge process.
Anticipated Discharge: Today
Subjective/Interval History
-
Date of Service: August 06, 2025
Patient seen and examined. No complaints.
Objective Data
-
Vital Signs:
Vital Signs
Temp Pulse Resp BP Pulse Ox
98.4 F 73 16 114/61 96
08/06/25 08:19 08/06/25 08:19 08/06/25 08:19 08/06/25 08:19 08/06/25 10:02
I&O
08/05/25 08/06/25 08/07/25
06:59 06:59 06:59
Intake Total 1540 / 1540 1420 / 1420
Output Total 50 / 50 10 / 10
Balance 1490 / 1490 1410 / 1410
Review of Systems
-
History Source: Patient
All other systems: Reviewed and negative
--- NOTE | 2025-08-06 11:26 | W.DS.TRANS ---
DC Summary - Launch Check Out
-
Discharge Instructions:
Discharge Diagnosis/Procedures Bile leak
Diet As tolerated
Activity No restrictions
Bathing Restrictions OK to Shower
Other Services VN
Wound Care Cover NITZA drain site with clean drain sponge and
change daily and as needed. Ok to shower.
Instructions:
Stand-Alone Forms:
Changes to Home Medications: No
Discharge Medications:
DC Medications w/original date entered in [facility]
cyanocobalamin (vitamin B-12) 1,000 mcg tablet 1,000 mcg PO DAILY Supplement 07/20/25
hydroxyzine pamoate 50 mg capsule 50 mg PO TID Mental Health/Anxiety 07/20/25
melatonin 10 mg tablet 10 mg PO HSPRN PRN sleep 07/20/25
therapeutic multivitamin 1 tab PO DAILY Supplement 07/20/25
tirzepatide 7.5 mg/0.5 mL subcutaneous pen injector (Mounjaro) 7.5 mg SC SA weight management 07/20/25
zolpidem 10 mg tablet (Ambien) 10 mg PO HSPRN PRN sleep 07/20/25
amitriptyline 10 mg tablet 10 mg PO HS depression/sleep 07/21/25
etodolac 400 mg tablet 400 mg PO BID Anti-Inflammatory 07/21/25
fluoxetine 40 mg capsule 40 mg PO DAILY depression/anxiety 07/21/25
lorazepam 0.5 mg tablet 0.5 mg PO DAILYPRN PRN anxiety 07/21/25
pregabalin 150 mg capsule 150 mg PO BID Pain 07/21/25
trazodone 100 mg tablet 100 mg PO HS depression/sleep 07/21/25
omeprazole 40 mg capsule,delayed release 40 mg PO DAILY Gastrointestinal Issue 07/29/25
oxycodone 5 mg tablet 5 mg PO Q6HPRN PRN severe pain 07/29/25
oxycodone 5 mg tablet 5 mg PO Q4HPRN PRN severe pain #10 tabs 08/06/25
Home Medication Changes
Pending Results: No
--- NOTE | 2025-08-06 12:09 | CM ---
CM reviewed chart and noted dc order
Bedside meeting with pt
Plan for home with [facility] and dtr's support for sanya drain
Call to dtr per pt request
Update provided- she feels comfortable with drain care
Update to [facility]
Discharge Disposition- home with [facility], dtr transport approx 1400 pickup
[2025-08-06 12:16] LABS: Glucose - Point of Care 96 mg/dl (70-99)
[2025-08-06] MEDS: ROXICODONE 5 MG PO (12:26)
[2025-08-06 15:08] VITALS: BP 110/81
== END 2025-08-06 15:15 | disposition home health service (06) | DRG 394 ==
LOC: 2 NORTH 22:01
PROVIDERS: Internal Medicine; Nurse Practitioner Adult Health; Registered Nurse; ADMITTING PHYSICIAN Hospitalist; ATTENDING PHYSICIAN Hospitalist; CONSULT PHYSICIAN Internal Medicine Gastroenterology; CONSULT PHYSICIAN Surgery; EMERGENCY PHYSICIAN Emergency Medicine; FAMILY PHYSICIAN Internal Medicine
PROC: 0D9680Z Drainage of Stomach with Drainage Device, Via Natural or Artificial Opening Endoscopic (ICD-10-PCS; 2025-08-01)
PROC: 0D768ZZ Dilation of Stomach, Via Natural or Artificial Opening Endoscopic (ICD-10-PCS; 2025-08-01)
PROC: 0F798DZ Dilation of Common Bile Duct with Intraluminal Device, Via Natural or Artificial Opening Endoscopic (ICD-10-PCS; 2025-08-01)
DX: K95.81 Infection due to other bariatric procedure (principal); D68.9 Coagulation defect, unspecified; E87.1 Hypo-osmolality and hyponatremia; K91.89 Other postprocedural complications and disorders of digestive system; I10 Essential (primary) hypertension; F20.9 Schizophrenia, unspecified; F31.9 Bipolar disorder, unspecified; G35.D Multiple sclerosis, unspecified; F41.9 Anxiety disorder, unspecified; K21.9 Gastro-esophageal reflux disease without esophagitis; G89.29 Other chronic pain; E66.9 Obesity, unspecified; R13.10 Dysphagia, unspecified; N28.1 Cyst of kidney, acquired; D64.9 Anemia, unspecified; D75.839 Thrombocytosis, unspecified; E11.649 Type 2 diabetes mellitus with hypoglycemia without coma; G47.00 Insomnia, unspecified; E87.6 Hypokalemia; Y83.2 Surgical operation with anastomosis, bypass or graft as the cause of abnormal reaction of the patient, or of later complication, without mention of misadventure at the time of the procedure; Z79.84 Long term (current) use of oral hypoglycemic drugs; Z68.31 Body mass index [BMI] 31.0-31.9, adult; Z79.85 Long-term (current) use of injectable non-insulin antidiabetic drugs; Z79.891 Long term (current) use of opiate analgesic; Z79.899 Other long term (current) drug therapy; Z87.891 Personal history of nicotine dependence; Z88.0 Allergy status to penicillin; Z90.49 Acquired absence of other specified parts of digestive tract; Z98.84 Bariatric surgery status
CPT/HCPCS: 74177; 74330; 76000; 80048; 80053; 82248; 82962; 83036; 83690; 83735; 85025; 85027; 85610; 93005; 96365; 96375; 99285; C1726; C1769; C1874; C2617; Q9967